=== PATIENT | male | born 1970 | race Caucasian/White ===

== ENCOUNTER 2018-06-15 15:51 | Emergency (ER) | payer MEDICARE, MEDICAID, SELFPAY ==
[2018-06-15 16:04] VITALS: BP 141/98; PULSE 110; RESP 16; TEMP 36.7; O2SAT 100
--- NOTE | 2018-06-15 16:40 | W.ED.GENAD ---
Discharge Plan Disposition Patient Disposition: HOME Discharge Details Chief Complaint: RespSymp Primary Care Provider: None,None ED Provider: Attila Jefferson Home Meds and New Rx's Prescriptions: New benzonatate 200 mg capsule 200 mg PO TID PRN (Reason: cough) Qty: 30 RF: 0 levofloxacin 750 mg tablet 750 mg PO DAILY Qty: 2 RF: 0 Continued ibuprofen 600 MG tablet 600 mg PO PRN PRNRF: 0 Discharge Data Discharge Date/Time-TO BE ENTERED AT DEPARTURE: 06/15/18 17:18 Medical Decision Making Patient presenting to the emergency department for chief complaint of puncture wound to the right foot. Patient states that he was wearing shoes when a mercedez nail punctured through his shoe puncturing his sole of the right foot. Patient also does state a worsening of an upper respiratory tract infection that he has had going for about 5days. Physical exam does show a puncture wound to the plantar aspect of the right foot with small ecchymosis otherwise no erythema. Examination of upper respiratory tract infectious symptoms shows clear lung sounds, mild tachycardia, otherwise no other focal exam findings noted. Patient states his biggest concern was not being up-to-date on tetanus and puncture wound. Patient given Tdap in emergency department and due to puncture wound through the sole of shoe was placed upon Levaquin to cover for pseudomonal potential. First dose was given in emergency department. For worsening cough patient put on Tessalon Perles otherwise I doubt pneumonia, or bacterial illness at the time and highly suspect viral etiology. Return precautions were discussed. After discussion of diagnosis and plan of care patient has no further needs, questions, or concerns and states clear understanding to return to the emergency department for any worsening symptoms. HPI General Mode of arrival: ambulatory. Date/Time Provider Initiated Documentation: 06/15/18 16:14. Limitations to Documentation: no limitations. Information obtained by: patient and RN notes reviewed. History of Present Illness 47 year old M presents to the emergency department with the chief complaint of right foot injury, cough, described as mild, with intensity rated at 2. Quality is described as aching and sharp, and is localized to the right and lower extremity. Patient started experiencing this day(s) (1) and it has been constant. Patient notes no other symptoms.. Patient did receive the following treatments prior to arrival, none Related Data Home Medications Medication Instructions Recorded Confirmed ibuprofen 600 mg PO PRN PRN 09/12/14 06/15/18 benzonatate 200 mg PO TID PRN #30 cap 06/15/18 levofloxacin 750 mg PO DAILY #2 tab 06/15/18 Previous Rx's Medication Instructions Recorded benzonatate 200 mg PO TID PRN #30 cap 06/15/18 levofloxacin 750 mg PO DAILY #2 tab 06/15/18 Allergies Allergy/AdvReac Type Severity Reaction Status Date / Time No Known Allergies Allergy Unverified 06/15/18 16:08 General Stated Complaint: RespSymp RAMIREZ: 4 Review of Systems Constitutional Denies chills, Denies fever(s), Denies headache(s) and Reports malaise Eyes Denies eye discharge ENT Reports as per HPI, Denies ear discharge, Denies otalgia, Denies headache(s), Reports nasal congestion, Reports nasal discharge, Denies neck pain, Reports sinus pain, Reports sinus pressure, Reports sore throat and Denies throat swelling Cardiovascular Denies chest pain and Denies dyspnea Respiratory Reports chest congestion (worsening), Reports cough, Denies dyspnea and Reports other Musculoskeletal Reports as per HPI, Denies myalgias, Denies joint swelling, Denies muscle cramps, Denies neck pain and Denies stiffness Integumentary/Breasts Denies rash Neurologic Denies headache(s) Allergic/Immunologic Denies throat swelling [facility] Social History Smoking/Tobacco Use Status: Current every day Drug use: Never Do you feel safe in your relationship?: Yes Exam Const General: cooperative, comfortable and no acute distress Orientation: alert and awake [facility] Head: normal to inspection, normocephalic and atraumatic Ears: hearing grossly normal bilaterally and TM's normal bilaterally General nose exam: external nose normal Face and sinus: normal facial exam Mouth: oral mucosae normal, no drooling, no muffled voice and no trismus Throat: posterior oropharynx normal, tonsils normal and uvula midline Neck Neck: normal visual inspection, full ROM, no lymphadenopathy, no meningeal signs, trachea midline and supple Resp Effort & Inspection: normal respiratory effort, able to speak in complete sentences and cough Quality of cough: dry Auscultation: clear to auscultation bilaterally Cardio Rate: tachycardic Rhythm: regular rhythm Heart Sounds: S1 normal, S2 normal, normal S1 and S2, no click, no gallops, no murmurs and no rubs Skin Trauma: puncture (To plantar aspect of right foot, no erythema) Neuro General: alert, awake, oriented x3, gait normal and moves all extremities Cognition: normal cognition Speech: speech normal Course Vital Signs Temperature 36.7 C 06/15/18 16:04 Pulse 110 H 06/15/18 16:04 Respiratory Rate 16 06/15/18 16:04 Blood Pressure 141/98 H 06/15/18 16:04 Pulse Oximetry 100 06/15/18 16:04 Temperature 36.7 C 06/15/18 16:04 Temperature Source Skin 06/15/18 16:04 Pulse 110 H 06/15/18 16:04 Respiratory Rate 16 06/15/18 16:04 Respiratory Effort 06/15/18 16:12 Respiratory Depth Normal 06/15/18 16:12 Blood Pressure 141/98 H 06/15/18 16:04 Pulse Oximetry 100 06/15/18 16:04 Oxygen Delivery Method Room Air 06/15/18 16:04 Oxygen Flow Rate 0 06/15/18 16:04 Pain Level 2 06/15/18 16:04
== END 2018-06-15 17:18 | disposition home or self-care (01) ==
PROVIDERS: Emergency Provider Nurse Practitioner Family
DX: S91.331A Puncture wound without foreign body, right foot, initial encounter (principal); W45.0XXA Nail entering through skin, initial encounter; J06.9 Acute upper respiratory infection, unspecified; F17.210 Nicotine dependence, cigarettes, uncomplicated
CPT/HCPCS: 96372; 99284; 99283

== ENCOUNTER 2018-10-16 17:46 | Inpatient (IN) | payer MEDICARE, MEDICAID, SELFPAY ==
[2018-10-16] VITALS (40 sets, daily range): BP systolic 144–199; BP diastolic 116–145; PULSE 89–142; RESP 12–30; TEMP 36.3–36.8; O2SAT 91–100
--- NOTE | 2018-10-16 18:00 | DI.CT_ITS ---
SYMPTOMS/DIAGNOSIS: MID ABDOMEN PAIN, RADIATING TO BACK CT ANGIOGRAPHY OF THE ABDOMEN AND PELVIS: CT angiography was performed with multi slice acquisition and multi planar and 3D reconstruction. Routine examination was performed. There is a 5 mm nodule in the right middle lobe. There is no evidence of a hepatic mass. The portal, superior mesenteric and splenic veins are patent. The gallbladder is negative. There is no biliary ductal dilatation. There is pancreatic atrophy but no intrapancreatic mass or fluid collection is seen. The spleen and adrenal glands are unremarkable as are the kidneys, ureters and bladder. The reproductive organs are unremarkable. The bowel shows no evidence of obstruction or inflammation. No findings to suggest an acute appendicitis are present. There is atherosclerosis of the abdominal aorta but no evidence of aneurysm or dissection. The celiac trunk, mesenteric and inferior mesenteric arteries show no significant stenosis or occlusion. The renal arteries show no significant occlusion or stenosis. There is critical stenosis of the right common iliac artery. There is critical stenosis of the right internal iliac artery. There is occlusion of the proximal left internal iliac artery with distal reconstitution. No focal fluid collection is seen. No significant abdominal or pelvic adenopathy or pneumoperitoneum is present. No acute osseous abnormality is identified. Moderate degenerative changes are seen in the spine. IMPRESSION: 1. Findings suggestive of acute pancreatitis. No focal fluid collection is seen to suggest abscess. 2. Atherosclerosis of the abdominal aorta and its runoff with critical stenosis of the right common iliac artery and occlusions of both internal iliac arteries with distal reconstitution.
[2018-10-16 18:09] LABS: Abs Immature Grans 0.03 k/cumm (0.0-0.09); Absolute Eosinophil Count 0.02 k/cumm (0.0-0.7); Absolute Monocyte Count 0.78 k/cumm (0.11-0.7); Absolute Neutrophil Count 13.44 k/cumm (1.2-6.7); Basophils % 0.3; Eosinophils % 0.1; HCT 52.3 % (40.0-50.0); Immature Grans % 0.2; Lymphocytes % 6.8; Mean Corp. HGB Concentration 36.3 g/dL (32.0-36.0); Mean Corpuscular Hemoglobin 33.3 pg (27.0-33.0); Mean Corpuscular Volume 91.8 fL (80-95); Mean Platelet Volume 9.8 fL (8.0-11.0); Monocytes % 5.1; Neutrophils % 87.5; Platelet Count 248 x1000/uL (130-400); RBC Distribution Width 13.4 % (11.8-14.1); White Blood Cell Count 15.36 k/cumm (4.4-10.8)
[2018-10-16 18:11] LABS: Lactate 2.2 mmol/L (0.6-1.4)
[2018-10-16 18:12] LABS: Absolute Basophil Count 0.05 k/cumm (0.0-0.2); Absolute Lymphocyte Count 1.04 k/cumm (1.2-3.4)
[2018-10-16] MEDS: Omnipaque 350 MG/ML 100 ML BTL IJ (18:23)
[2018-10-16] MEDS: HYDROmorphone 2 MG/ML VIAL 1 MG IVP ×2 (18:28→19:28)
--- NOTE | 2018-10-16 18:43 | NUR.NOTE ---
at bedside for bedside ultrasound eval Nursing Note:
--- NOTE | 2018-10-16 18:50 | DI.VRAD_ITS ---
Addendum created by Jessica Fairbanks MD on 10/16/2018 6:52:20 PM EDT I discussed case findings with SONNY DE LA GARZA 10/16/2018 6:51 PM EDT. Initial report created on 10/16/2018 6:50:35 PM EDT EXAM: CT Angiography Abdomen and Pelvis With Contrast EXAM DATE/TIME: 10/16/2018 6:02 PM CLINICAL HISTORY: 47 years old, male; Other: Abdominal pain, mid abd, radiating to back TECHNIQUE: Imaging protocol: Axial computed tomographic angiography images of the abdomen and pelvis with intravenous contrast material. Coronal and sagittal reformatted images were created and reviewed. 3D renderinD reconstructed images were created and reviewed. Radiation optimization: All CT scans at this facility use at least one of these dose optimization techniques: automated exposure control; mA and/or kV adjustment per patient size (includes targeted exams where dose is matched to clinical indication); or iterative reconstruction. Contrast material: OMNIPAQUE 350; Contrast volume: 100 ml; Contrast route: IV; COMPARISON: No relevant prior studies available. FINDINGS: Lungs: 5 mm soft tissue nodule right middle lobe. 4 image 4. VASCULATURE: Aorta: Moderate atherosclerotic change involves the aorta. Celiac trunk and mesenteric arteries: No occlusion or significant stenosis. Renal arteries: No occlusion or significant stenosis. Right iliac arteries: There is a critical stenosis of the right common iliac artery. There appears to be occlusion of the right internal iliac artery with distal reconstitution. Left iliac arteries: There is occlusion of the proximal left internal iliac artery with distal reconstitution. ABDOMEN: Liver: No mass. Gallbladder and bile ducts: Unremarkable. No calcified stones. No ductal dilation. Pancreas: There is moderate to severe peripancreatic soft tissue stranding particularly involving the body and tail with minimal head involvement. There is abnormal soft tissue stranding and some fluid attenuation in the left paracolic gutter. Spleen: Unremarkable. No splenomegaly. Adrenals: Unremarkable. No mass. Kidneys and ureters: Unremarkable. No solid mass. No hydronephrosis. Stomach and bowel: Unremarkable. No obstruction. No mucosal thickening. Appendix: No evidence of appendicitis. PELVIS: Bladder: Unremarkable. No mass. Reproductive: Unremarkable as visualized. ABDOMEN and PELVIS: Intraperitoneal space: See Pancreas Finding. Bones/joints: Moderate thoracolumbar spondylosis. Soft tissues: Unremarkable. Lymph nodes: Unremarkable. No enlarged lymph nodes. IMPRESSION: 1. Findings consistent with severe, acute pancreatitis. Clinical and laboratory correlation requested. 2. Critical stenosis right common iliac artery. 3. Bilateral internal iliac artery occlusions with distal reconstitution. COMMENT: Preliminary interpretation is based on receipt of 1532 image(s). A final report will be issued subsequently. Dictated and Authenticated by: Jessica Fairbanks MD. Ordering:RAFAEL Casey MD
[2018-10-16 18:51] LABS: ALT 52 U/L (12-78); AST 55 U/L (15-37); Albumin 4.3 g/dL (3.4-5.0); Alkaline Phosphatase 102 U/L (46-116); Anion Gap 12.4 mmol/L (3-11); BUN 10 mg/dL (7-18); Bilirubin, Total 1.1 mg/dL (0.2-1.0); CO2 28.6 mmol/L (21.0-32.0); Calcium 10.9 mg/dL (8.5-10.1); Chloride 92 mmol/L (98-107); Glucose 152 mg/dL (70-100); Magnesium 1.7 mg/dL (1.8-2.4); Potassium 3.6 mmol/L (3.5-5.1); Sodium 133 mmol/L (136-145); Total Protein 8.5 g/dL (6.4-8.2); Troponin I < 0.05 ng/mL (0.00-0.06)
[2018-10-16 19:01] LABS: Lipase 3732 U/L (73-393)
--- NOTE | 2018-10-16 19:01 | NUR.NOTE ---
pulses verified with doppler to ble weaker pulses palpated on r pedal compared to left Nursing Note:
--- NOTE | 2018-10-16 19:03 | ED.GENADUL_ITS ---
Discharge Plan Disposition Patient Disposition: [facility] INPATIENT Discharge Details Chief Complaint: Abd Prob Clinical Impression: Acute pancreatitis, Right iliac artery stenosis Primary Care Provider: None,None ED Provider: Jacinto Shay Home Meds and New Rx's Prescriptions: No Action ibuprofen 600 MG tablet 600 mg PO PRN PRNRF: 0 Medical Decision Making 19:05 -- 47-year-old male who consumes heavy daily amounts of alcohol, here with severe upper abdominal pain radiating to his back worsening over the past 2 days. Abdomen is tender in his epigastric and centrally with some guarding. Patient is tachycardic and hypertensive. Of note he is not had any alcohol in the past couple days. Stat CTA of the abdomen and pelvis was obtained to assess for acute surgical pathology including AAA. CT interpreted by radiology who I spoke with: Findings consistent with severe acute pancreatitis. Clinical and laboratory correlation requested. Critical stenosis right common iliac artery noted to be 99%. Bilateral internal iliac artery occlusions with distal reconstitution. Screening ECG was reviewed and interpreted by me: Sinus tachycardia 114 bpm, normal axis, nonspecific ST depression, nondiagnostic. Labs reviewed and significant leukocytosis noted. Lactate of 2.2. Lipase of 3732. Patient was given 1L IV fluid bolus x2. Dilaudid 1 mg IV for pain. Patient reassessed and noted to have palpable dorsalis pedis left greater than right. Patient has no numbness or tingling. [place] [facility] [place] to request vascular consult. CT sent for review. Patient reassessed and having recurrent pain. I will give another dose of Dilaudid 1 mg IV. 19:15 -- I spoke with Dr. Perdue, we discussed ED presentation and course including all diagnostic treatment results, he will admit the patient. 19:40 --Dr. Perdue here to evaluate and admit patient. Care transition to Dr. Perdue. 20:00 -- no return call from [facility] vascular surgery. I alerted Dr. Perdue to this and he will follow-up. HPI General Mode of arrival: ambulatory . Date/Time Provider Initiated Documentation: 10/16/18 18:00 . Limitations to Documentation: no limitations . Information obtained by: patient . HPI Narrative: 47-year-old male presents with chief combine of abdominal pain. Pain started 2 to 3 days ago and has persisted. Pain is severe. Constant. Pain localized to his epigastric and mid abdomen and radiating to his back. Pain is worse with certain positions. Patient notes he has had recent flulike illness with nausea, vomiting and diarrhea that started about 4 days ago. Patient notes that he consumes about a pint of hard liquor daily. He has not had a drink in the past couple days because of his symptoms. Related Data Home Medications Medication Instructions Recorded Confirmed ibuprofen 600 mg PO PRN PRN 09/12/14 10/16/18 Allergies Allergy/AdvReac Type Severity Reaction Status Date / Time No Known Allergies Allergy Unverified 10/16/18 17:53 General Stated Complaint: Abd Prob RAMIREZ: 3 Review of Systems Review of Systems All systems reviewed & are unremarkable except as noted in HPI and below Constitutional Denies fever(s) Cardiovascular Denies chest pain Gastrointestinal Reports as per HPI [facility] Social History Smoking/Tobacco Use Status: Current every day Alcohol Intake: current Alcohol Intake frequency: 3 or more drinks per day Alcohol type: beer and hard liquor Drug use: Never Do you feel safe in your relationship?: Yes Exam Const General: cooperative and no acute distress HENMT Head: normocephalic and atraumatic Mouth: mucous membranes dry Eyes Conjunctivae: normal conjunctivae Sclera: normal sclerae Neck Neck: trachea midline and supple Resp Auscultation: clear to auscultation bilaterally, no rales, no rhonchi and no wheezes Cardio Jugular venous pressure: no JVD Rate: tachycardic Rhythm: regular rhythm GI Palpation: guarding (upper abd) and tender in the epigastrum Auscultation: hypoactive bowel sounds Skin General skin exam: no rashes or lesions noted Neuro General: alert, awake, oriented x3 and tone normal Extrem General: no edema Psych Appearance: grossly normal Mental Status: mental status grossly normal Speech and Movement: speech and movement normal Course Vital Signs Temperature 36.3 C L 10/16/18 17:47 Pulse 120 H 10/16/18 17:47 Respiratory Rate 24 10/16/18 17:47 Blood Pressure 185/136 H 10/16/18 17:47 Pulse Oximetry 99 10/16/18 17:47 Temperature 36.3 C L 10/16/18 17:47 Temperature Source Skin 10/16/18 17:47 Pulse 120 H 10/16/18 17:47 Respiratory Rate 24 10/16/18 17:47 Respiratory Effort Non-Labored 10/16/18 18:34 Blood Pressure 185/136 H 10/16/18 17:47 Blood Pressure Position Supine 10/16/18 17:47 Pulse Oximetry 99 10/16/18 17:47 Oxygen Delivery Method Room Air 10/16/18 17:47 Oxygen Flow Rate 0 10/16/18 17:47 Lab/Test Results Lab/Test Results: Laboratory Tests Range/Units 10/16/18 10/16/18 10/16/18 18:00 18:00 18:00 WBC (4.4-10.8) k/cumm 15.36 H RBC (4.50-6.00) m/cumm 5.70 Hgb (13.5-17.5) g/dL 19.0 H Hct (40.0-50.0) % 52.3 H MCV (80-95) fL 91.8 MCH (27.0-33.0) pg 33.3 H MCHC (32.0-36.0) g/dL 36.3 H RDW (11.8-14.1) % 13.4 Plt Count (130-400) x1000/uL 248 MPV (8.0-11.0) fL 9.8 Immature Gran % 0.2 Neutrophils % 87.5 Lymphocytes % 6.8 Monocytes % 5.1 Eosinophils % 0.1 Basophils % 0.3 Absolute Neutrophils (1.2-6.7) k/cumm 13.44 H Absolute Lymphocytes (1.2-3.4) k/cumm 1.04 L Absolute Monocytes (0.11-0.7) k/cumm 0.78 H Absolute Eosinophils (0.0-0.7) k/cumm 0.02 Absolute Basophils (0.0-0.2) k/cumm 0.05 Sodium (136-145) mmol/L 133 L Potassium (3.5-5.1) mmol/L 3.6 Chloride (98-107) mmol/L 92 L Carbon Dioxide (21.0-32.0) mmol/L 28.6 Anion Gap (3-11) mmol/L 12.4 H BUN (7-18) mg/dL 10 Creatinine (0.70-1.30) mg/dL 1.10 Estimated GFR/1.73 m2 (mL/min/1.73m2) >= 60.00 Glucose (70-100) mg/dL 152 H Lactate (0.6-1.4) mmol/L 2.2 H* Calcium (8.5-10.1) mg/dL 10.9 H Magnesium (1.8-2.4) mg/dL 1.7 L Total Bilirubin (0.2-1.0) mg/dL 1.1 H AST (15-37) U/L 55 H ALT (12-78) U/L 52 Alkaline Phosphatase (46-116) U/L 102 Troponin I (0.00-0.06) ng/mL < 0.05 Total Protein (6.4-8.2) g/dL 8.5 H Albumin (3.4-5.0) g/dL 4.3 Lipase (73-393) U/L 3732 H Patient ABO/Rh Range/Units 10/16/18 18:05 WBC (4.4-10.8) k/cumm RBC (4.50-6.00) m/cumm Hgb (13.5-17.5) g/dL Hct (40.0-50.0) % MCV (80-95) fL MCH (27.0-33.0) pg MCHC (32.0-36.0) g/dL RDW (11.8-14.1) % Plt Count (130-400) x1000/uL MPV (8.0-11.0) fL Immature Gran % Neutrophils % Lymphocytes % Monocytes % Eosinophils % Basophils % Absolute Neutrophils (1.2-6.7) k/cumm Absolute Lymphocytes (1.2-3.4) k/cumm Absolute Monocytes (0.11-0.7) k/cumm Absolute Eosinophils (0.0-0.7) k/cumm Absolute Basophils (0.0-0.2) k/cumm Sodium (136-145) mmol/L Potassium (3.5-5.1) mmol/L Chloride (98-107) mmol/L Carbon Dioxide (21.0-32.0) mmol/L Anion Gap (3-11) mmol/L BUN (7-18) mg/dL Creatinine (0.70-1.30) mg/dL Estimated GFR/1.73 m2 (mL/min/1.73m2) Glucose (70-100) mg/dL Lactate (0.6-1.4) mmol/L Calcium (8.5-10.1) mg/dL Magnesium (1.8-2.4) mg/dL Total Bilirubin (0.2-1.0) mg/dL AST (15-37) U/L ALT (12-78) U/L Alkaline Phosphatase (46-116) U/L Troponin I (0.00-0.06) ng/mL Total Protein (6.4-8.2) g/dL Albumin (3.4-5.0) g/dL Lipase (73-393) U/L Patient ABO/Rh A Positive
[2018-10-16] MEDS: Normal Saline 1,000 ML 1000 ML IV (19:26)
--- NOTE | 2018-10-16 19:28 | W.PM.HP.N ---
Date of service: 10/16/18 Time of Service: 19:28 Assessment and Plan (1) Pancreatitis: Current visit: Yes Status: Chronic Alcoholic pancreatitis. Will have NPO, IVF and analgesics. Unclear if hypertension and tachycardia secondary to pain, alcohol w/d or both; if persists once pain under control will add beta ritchie, and in any case will have on CIWA protocol. History of Present Illness Chief Complaint: abdominal paiin Narrative: 47 male with h/o alcohol abuse, says he drinks a pint of spirits daily, last niharika few days ago. here with 2 days or worsening epigastric pain, radiating to back. In ER lipase [address] findings of pancreatitis (no gall stones)_. Patient admitted for further management. States he has never had withdrawal symptoms from alcohol. Incidental finding on CT of right iliac stenosis, in setting of palpable pedal pulses Review of Systems Review of Systems All systems reviewed & are unremarkable except as noted in HPI and below PFSH Social History Smoking/Tobacco Use Status: Current every day Alcohol Intake: current Alcohol Intake frequency: 3 or more drinks per day Alcohol type: beer and hard liquor Drug use: Never Do you feel safe in your relationship?: Yes Meds Home Medications Medication Instructions Recorded Confirmed Type ibuprofen 600 mg PO PRN PRN 09/12/14 10/16/18 History Allergies Allergy/AdvReac Type Severity Reaction Status Date / Time No Known Allergies Allergy Unverified 10/16/18 17:53 Exam Narrative Exam Narrative: 185/136, 120, 24, 36.3; HEENT no icterus; neck supple; lungs clear; heart tachy/regular; abdomen somewhat distended, hypoactive BS, moderate epigastric tenderness; /rectal deferred'; extr no edema pedal pulses full Results Labs : 10/16/18 18:00 10/16/18 18:00 Laboratory Results - last 24 hr 10/16/18 10/16/18 10/16/18 18:00 18:00 18:00 WBC 15.36 H RBC 5.70 Hgb 19.0 H Hct 52.3 H MCV 91.8 MCH 33.3 H MCHC 36.3 H RDW 13.4 Plt Count 248 MPV 9.8 Immature Gran % 0.2 Neutrophils % 87.5 Band Neutrophils % Lymphocytes % 6.8 Atypical Lymphs % Monocytes % 5.1 Eosinophils % 0.1 Basophils % 0.3 Metamyelocytes % Myelocytes % Promyelocytes % Absolute Neutrophils 13.44 H Absolute Lymphocytes 1.04 L Absolute Monocytes 0.78 H Absolute Eosinophils 0.02 Absolute Basophils 0.05 Nucleated RBCs Differential Comment Other Cell Type RBC Morphology Polychromasia Hypochromasia Poikilocytosis Basophilic Stippling Anisocytosis Microcytosis Macrocytosis Spherocytes Target Cells Tear Drop Cells Ovalocytes Stomatocytes [place] Bodies Ariana Cells Acanthocytes (Spur) Schistocytes Sodium 133 L Potassium 3.6 Chloride 92 L Carbon Dioxide 28.6 Anion Gap 12.4 H BUN 10 Creatinine 1.10 Estimated GFR/1.73 m2 >= 60.00 Glucose 152 H Lactate 2.2 H* Calcium 10.9 H Magnesium 1.7 L Total Bilirubin 1.1 H AST 55 H ALT 52 Alkaline Phosphatase 102 Troponin I < 0.05 Total Protein 8.5 H Albumin 4.3 Lipase 3732 H Patient ABO/Rh Antibody Screen 10/16/18 10/16/18 10/16/18 18:05 19:01 19:01 WBC Cancelled RBC Cancelled Hgb Cancelled Hct Cancelled MCV Cancelled MCH Cancelled MCHC Cancelled RDW Cancelled Plt Count Cancelled MPV Cancelled Immature Gran % Cancelled Neutrophils % Cancelled Band Neutrophils % Cancelled Lymphocytes % Cancelled Atypical Lymphs % Cancelled Monocytes % Cancelled Eosinophils % Cancelled Basophils % Cancelled Metamyelocytes % Cancelled Myelocytes % Cancelled Promyelocytes % Cancelled Absolute Neutrophils Cancelled Absolute Lymphocytes Cancelled Absolute Monocytes Cancelled Absolute Eosinophils Cancelled Absolute Basophils Cancelled Nucleated RBCs Cancelled Differential Comment Cancelled Other Cell Type Cancelled RBC Morphology Cancelled Polychromasia Cancelled Hypochromasia Cancelled Poikilocytosis Cancelled Basophilic Stippling Cancelled Anisocytosis Cancelled Microcytosis Cancelled Macrocytosis Cancelled Spherocytes Cancelled Target Cells Cancelled Tear Drop Cells Cancelled Ovalocytes Cancelled Stomatocytes Cancelled [place] Bodies Cancelled Ariana Cells Cancelled Acanthocytes (Spur) Cancelled Schistocytes Cancelled Sodium Cancelled Potassium Cancelled Chloride Cancelled Carbon Dioxide Cancelled Anion Gap Cancelled BUN Cancelled Creatinine Cancelled Estimated GFR/1.73 m2 Cancelled Glucose Cancelled Lactate Calcium Cancelled Magnesium Cancelled Total Bilirubin Cancelled AST Cancelled ALT Cancelled Alkaline Phosphatase Cancelled Troponin I Cancelled Total Protein Cancelled Albumin Cancelled Lipase Patient ABO/Rh A Positive Antibody Screen Negative Last Vital Signs Temp 36.3 C L 10/16/18 17:47 Pulse 120 H 10/16/18 17:47 Resp 24 10/16/18 17:47 BP 185/136 H 10/16/18 17:47 Pulse Ox 99 10/16/18 17:47
[2018-10-16] MEDS: Metoprolol CR 25 MG TABCR PO (20:06)
[2018-10-16] MEDS: MULTIVITAMIN 10 ML, THIAMINE 100 MG, FOLIC ACID 1 MG in DEXTROSE 5%-0.45% SALINE 1,000 ML 42 ML IV (21:01)
[2018-10-16] MEDS: HYDROmorphone 2 MG/ML VIAL IVP (22:16)
[2018-10-16] MEDS: Nicotine 21 MG/24 HR PATCH TD (22:16)
[2018-10-16] MEDS: LORazepam 1 MG TAB PO/SL (22:17)
[2018-10-16] MEDS: Enalapril 5 MG TAB 2.5 MG PO (23:06)
[2018-10-16] MEDS: Metoprolol 12.5 MG TAB PO (23:06)
[2018-10-17] VITALS (10 sets, daily range): BP systolic 113–160; BP diastolic 80–119; PULSE 89–109; RESP 17–20; TEMP 36–37.1; O2SAT 93–98
[2018-10-17] MEDS: HYDROmorphone 2 MG/ML VIAL IVP ×4 (02:16→18:41)
[2018-10-17] MEDS: LORazepam 1 MG TAB PO/SL (02:16)
[2018-10-17 07:29] LABS: HCT 51.1 % (40.0-50.0); HGB 17.8 g/dL (13.5-17.5); Mean Corp. HGB Concentration 34.8 g/dL (32.0-36.0); Mean Corpuscular Hemoglobin 32.8 pg (27.0-33.0); Mean Corpuscular Volume 94.3 fL (80-95); Mean Platelet Volume 10.3 fL (8.0-11.0); Platelet Count 209 x1000/uL (130-400); RBC 5.42 m/cumm (4.50-6.00); RBC Distribution Width 13.7 % (11.8-14.1)
[2018-10-17 07:41] LABS: Anion Gap 11.6 mmol/L (3-11); BUN 10 mg/dL (7-18); CO2 25.4 mmol/L (21.0-32.0); CREATININE 0.74 mg/dL (0.70-1.30); Calcium 9.7 mg/dL (8.5-10.1); Chloride 98 mmol/L (98-107); Glucose 111 mg/dL (70-100); Potassium 3.7 mmol/L (3.5-5.1); Sodium 135 mmol/L (136-145)
[2018-10-17] MEDS: Nicotine 21 MG/24 HR PATCH TD (08:01)
[2018-10-17] MEDS: Normal Saline Flush 10 ML SYR IVP ×3 (08:03→18:42)
[2018-10-17 08:07] LABS: Lipase 4443 U/L (73-393)
--- NOTE | 2018-10-17 08:39 | PDOC.CMIN ---
- If Service Date Differs Date of service: 10/17/18 Time of Service: 08:40 Care Management Initial Assess REASON FOR HOSPITALIZATION:: Pancreatitis PAST MEDICAL HISTORY/PAST SURGICAL HISTORY:: ETOH abuse. Bipolar per patient report PREVIOUS FUNCTIONAL STATUS/SOCIAL/FAMILY SUPPORTS:: Rio lives in a house in [facility] with his girlfriend and his 8 year old daughter. He is independent with all ADLs and continues to drive. 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 CURRENT FUNCTIONAL STATUS:: Rio was lying in bed when CM came to visit. He was a little drowsy but made an effort to stay awake to talk to CM. He stated he is having abdominal and back pain and requested medication for this from nursing. Rio states he has both a physical disability (back) and a mental one. He describes himself as schizophrenic, the manic depressive type. In the past he has been under treatment for this but stopped taking his medication and seeing his psychiatrist about 3 years ago. His mental health care was in [place] and the distance became too much. Through the course of conversation he stated that he would like to go back on medication for his psychiatric issues because it is better for me and for my family. ADVANCE DIRECTIVES:: None curently but may be interested. provided [facility] AD packet. Has patient been provided with information about the portal?: No Did the patient sign up for the portal?: No CODE STATUS:: Full Code INSURANCE COVERAGE / FINANCIAL ISSUES:: Medicare. Medicaid CURRENT HOME/COMMUNITY SERVICES/EQUIPMENT:: none PRIMARY CARE PHYSICIAN:: None POTENTIAL DISCHARGE NEEDS:: Follow up with mental health and establishing a relationship with a new PCP PATIENT/FAMILY EDUCATION NEEDS:: Discharge plan, limitations, follow up plan, Ask Me Three. ANTICIPATED BARRIERS TO DISCHARGE:: none identified TRANSPORTATION:: via private vehicle with girlfriend when ready PLAN:: Rio is receiving pain medication and is NPO to treat his pancreatitis. He is also on a CIWA protocol. He remains acute level of care. Rio will likely be discharged home when ready, possibly with new services. CM will continue to support Rio and his family and his discharge planning needs.
[2018-10-17 10:37] LABS: Lactate-non-spesis 0.8 mmol/l (0.6-1.4)
[2018-10-17 10:40] LABS: Magnesium 1.8 mg/dL (1.8-2.4)
[2018-10-17 10:49] LABS: Abs Immature Grans 0.03 k/cumm (0.0-0.09); Absolute Basophil Count 0.02 k/cumm (0.0-0.2); Absolute Eosinophil Count 0.04 k/cumm (0.0-0.7); Absolute Lymphocyte Count 0.78 k/cumm (1.2-3.4); Absolute Monocyte Count 1.06 k/cumm (0.11-0.7); Absolute Neutrophil Count 12.33 k/cumm (1.2-6.7); Basophils % 0.1; Eosinophils % 0.3; Immature Grans % 0.2; Lymphocytes % 5.5; Monocytes % 7.4; Neutrophils % 86.5
[2018-10-17] MEDS: Normal Saline 1,000 ML 200 ML IV ×2 (11:13→15:50)
[2018-10-17] MEDS: Docusate Sodium 100 MG CAP PO (11:14)
[2018-10-17] MEDS: Magnesium Chloride 64 MG TABCR PO ×2 (11:14→20:09)
--- NOTE | 2018-10-17 12:15 | W.PM.PROGNOT ---
Date of Service Date of service: 10/17/18 Time of Service: 12:15 Assessment and Plan (1) Pancreatitis: Start date: 10/17/18 Start time: 12:26 Current visit: Yes Status: Chronic Alcoholic pancreatitis. Drinks about 1 pint of liquor a day last drink was Friday. Continues to have pain, no nausea or vomiting. Abdomen is distended and firm. Continue NPO status for now, IVF at 200 ml/hr with Intermittent banana bags. (2) Alcohol abuse: Start date: 10/17/18 Start time: 12:27 Current visit: Yes Status: Chronic See above. On CIWA. Consider withdrawal in a patient that drinks about 1 pint liquor a day, has not had a drink since Friday, with an elevated heart rate and elevated bp. CIWA overnight was 6, oxazepam started for withdrawal and ativan PRN. If bp continues to stay elevated consider BB. (3) Tobacco abuse: Start date: 10/17/18 Start time: 12:30 Current visit: Yes Status: Acute Smoking cessation offered, nicotine replacement patch ordered. Continue to speak about cessation. (4) Constipation: Start date: 10/17/18 Start time: 12:31 Current visit: Yes Status: Acute Unable to have a BM in 5 days. Bowel regimen started. Continue to monitor. (5) Hypomagnesemia: Start date: 10/17/18 Start time: 12:31 Current visit: Yes Status: Acute Mag 1.7 repleted with slo-mag and monitor daily. (6) Pulmonary nodule: Start date: 10/17/18 Start time: 12:33 Current visit: Yes Status: Acute CT scan 10/16 revealing 5 mm soft tissue nodule in right middle lobe. Does not to be of concern at this time. Will need follow up as an outpatient for further testing and diagnosis. (7) DVT prophylaxis: Start date: 10/17/18 Start time: 12:32 Current visit: Yes Status: Acute 44 y.o male that is ambulatory around room with chronic alcoholism, chemical prophylaxis not indicated. Subjective Patient reports: no new complaints Interval history since last seen: Continues to have pain, abdomen firm, bloated with hypoactive bs, keep NPO at this time. No nausea or vomiting. Unable to have a BM, bowel regimen started. HR is slightly tachycardic with an elevated blood pressure. Last drink 3 days ago, could be withdrawal, scored 6 overnight with CIWA. Oxazepam ordered for withdrawal with ativan prn and trend vitals. If bp continues to be elevated outside withdrawal setting consider BB. CT obtained revealed a 5 mm nodule. Patient should have this worked up as an outpatient. Denies chest pain, shortness of breath, swelling. Exam Narrative Exam Narrative: Const: Pleasant male sitting up in chair, looks disheveled and in pain Neck: no lyphedema, normal appearance Chest: Normal appearance. Resp: breaths even unlabored, speaks complete sentences and LSC to all bases. Cardio:RRR, S1, S2, no murmur appreciated. GI: abdomen hypoactive BS in all quads. Obtunded belly, firm, distended. Pain to palpation in RLQ and mid epigastric. Skin: intact no open areas, wounds, rashes. Neuro: Intact, AAOx 3 Extremities: no clubbing, cyanosis, swelling. Objective Objective Clinical Data: Abnormal lab results 10/16/18 10/16/18 10/16/18 Range/Units 18:00 18:00 18:00 WBC 15.36 H (4.4-10.8) k/cumm Hgb 19.0 H (13.5-17.5) g/dL Hct 52.3 H (40.0-50.0) % MCH 33.3 H (27.0-33.0) pg MCHC 36.3 H (32.0-36.0) g/dL Absolute Neutrophils 13.44 H (1.2-6.7) k/cumm Absolute Lymphocytes 1.04 L (1.2-3.4) k/cumm Absolute Monocytes 0.78 H (0.11-0.7) k/cumm Sodium 133 L (136-145) mmol/L Chloride 92 L (98-107) mmol/L Anion Gap 12.4 H (3-11) mmol/L Glucose 152 H (70-100) mg/dL Lactate 2.2 H* (0.6-1.4) mmol/L Calcium 10.9 H (8.5-10.1) mg/dL Magnesium 1.7 L (1.8-2.4) mg/dL Total Bilirubin 1.1 H (0.2-1.0) mg/dL AST 55 H (15-37) U/L Total Protein 8.5 H (6.4-8.2) g/dL Lipase 3732 H (73-393) U/L 10/17/18 10/17/18 Range/Units 06:30 06:30 WBC 14.20 H (4.4-10.8) k/cumm Hgb 17.8 H (13.5-17.5) g/dL Hct 51.1 H (40.0-50.0) % MCH (27.0-33.0) pg MCHC (32.0-36.0) g/dL Absolute Neutrophils 12.33 H (1.2-6.7) k/cumm Absolute Lymphocytes 0.78 L (1.2-3.4) k/cumm Absolute Monocytes 1.06 H (0.11-0.7) k/cumm Sodium 135 L (136-145) mmol/L Chloride (98-107) mmol/L Anion Gap 11.6 H (3-11) mmol/L Glucose 111 H (70-100) mg/dL Lactate (0.6-1.4) mmol/L Calcium (8.5-10.1) mg/dL Magnesium (1.8-2.4) mg/dL Total Bilirubin (0.2-1.0) mg/dL AST (15-37) U/L Total Protein (6.4-8.2) g/dL Lipase 4443 H (73-393) U/L Vital Signs Temperature 36.6 C 10/17/18 11:25 Temperature Source Tympanic 10/17/18 11:25 Pulse 109 H 10/17/18 11:25 Pulse Rhythm Regular 10/17/18 08:12 Pulse 98 H 10/16/18 21:01 Respiratory Rate 17 10/17/18 11:25 Respiratory Effort Non-Labored 10/17/18 08:12 Respiratory Depth Normal 10/17/18 08:12 Respiratory Pattern Normal 10/17/18 08:12 Blood Pressure 121/89 10/17/18 11:25 Blood Pressure Mean 134 10/16/18 21:01 Blood Pressure Position Supine 10/16/18 17:47 Pulse Oximetry 97 10/17/18 11:25 Oxygen Delivery Method Room Air 10/17/18 11:25 Oxygen Flow Rate 0 10/17/18 11:25 Pain Level 7 10/17/18 08:02 Intake & Output 10/16/18 10/17/18 10/17/18 23:59 11:59 23:59 Intake Total 1000 / 1000 874.3 / 874.3 Balance 1000 / 1000 874.3 / 874.3 Weight 77.111 kg Intake: IV 1000 / 1000 874.3 / 874.3 Laboratory Results WBC 14.20 k/cumm (4.4-10.8) H 10/17/18 06:30 RBC 5.42 m/cumm (4.50-6.00) 10/17/18 06:30 Hgb 17.8 g/dL (13.5-17.5) H 10/17/18 06:30 Hct 51.1 % (40.0-50.0) H 10/17/18 06:30 MCV 94.3 fL (80-95) 10/17/18 06:30 MCH 32.8 pg (27.0-33.0) 10/17/18 06:30 MCHC 34.8 g/dL (32.0-36.0) 10/17/18 06:30 RDW 13.7 % (11.8-14.1) 10/17/18 06:30 Plt Count 209 x1000/uL (130-400) 10/17/18 06:30 MPV 10.3 fL (8.0-11.0) 10/17/18 06:30 Immature Gran % 0.2 10/17/18 06:30 86.5 10/17/18 06:30 Cancelled 10/16/18 19:01 5.5 10/17/18 06:30 Atypical Lymphs % Cancelled 10/16/18 19:01 7.4 10/17/18 06:30 0.3 10/17/18 06:30 0.1 10/17/18 06:30 Cancelled 10/16/18 19:01 Cancelled 10/16/18 19:01 Cancelled 10/16/18 19:01 Absolute Neutrophils 12.33 k/cumm (1.2-6.7) H 10/17/18 06:30 Absolute Lymphocytes 0.78 k/cumm (1.2-3.4) L 10/17/18 06:30 Absolute Monocytes 1.06 k/cumm (0.11-0.7) H 10/17/18 06:30 Absolute Eosinophils 0.04 k/cumm (0.0-0.7) 10/17/18 06:30 Absolute Basophils 0.02 k/cumm (0.0-0.2) 10/17/18 06:30 Nucleated RBCs Cancelled 10/16/18 19:01 Cancelled 10/16/18 19:01 Cancelled 10/16/18 19:01 RBC Morphology Cancelled 10/16/18 19:01 Cancelled 10/16/18 19:01 Cancelled 10/16/18 19:01 Cancelled 10/16/18 19:01 Cancelled 10/16/18 19:01 Cancelled 10/16/18 19:01 Cancelled 10/16/18 19:01 Cancelled 10/16/18 19:01 Cancelled 10/16/18 19:01 Cancelled 10/16/18 19:01 Cancelled 10/16/18 19:01 Cancelled 10/16/18 19:01 Cancelled 10/16/18 19:01 Cancelled 10/16/18 19:01 Cancelled 10/16/18 19:01 Acanthocytes (Spur) Cancelled 10/16/18 19:01 Cancelled 10/16/18 19:01 Sodium 135 mmol/L (136-145) L 10/17/18 06:30 Potassium 3.7 mmol/L (3.5-5.1) 10/17/18 06:30 Chloride 98 mmol/L (98-107) 10/17/18 06:30 Carbon Dioxide 25.4 mmol/L (21.0-32.0) 10/17/18 06:30 11.6 mmol/L (3-11) H 10/17/18 06:30 BUN 10 mg/dL (7-18) 10/17/18 06:30 0.74 mg/dL (0.70-1.30) 10/17/18 06:30 >= 60.00 (mL/min/1.73m2) 10/17/18 06:30 Glucose 111 mg/dL (70-100) H 10/17/18 06:30 0.8 mmol/l (0.6-1.4) 10/17/18 10:30 Calcium 9.7 mg/dL (8.5-10.1) 10/17/18 06:30 Magnesium 1.8 mg/dL (1.8-2.4) 10/17/18 06:30 Cancelled 10/16/18 19:01 AST Cancelled 10/16/18 19:01 ALT Cancelled 10/16/18 19:01 Cancelled 10/16/18 19:01 Cancelled 10/16/18 19:01 Cancelled 10/16/18 19:01 Cancelled 10/16/18 19:01 4443 U/L (73-393) H 10/17/18 06:30 Patient ABO/Rh A Positive 10/16/18 18:05 Antibody Screen Negative 10/16/18 18:05
[2018-10-17] MEDS: Polyethylene Glycol 3350 17 GM PACKET PO ×2 (13:33→20:10)
[2018-10-18] VITALS (10 sets, daily range): BP systolic 122–155; BP diastolic 86–98; PULSE 95–110; RESP 18–19; TEMP 36.7–37.6; O2SAT 92–96
[2018-10-18] MEDS: HYDROmorphone 2 MG/ML VIAL IVP ×3 (00:22→11:04)
[2018-10-18] MEDS: Normal Saline 1,000 ML 200 ML IV ×5 (01:20→21:03)
[2018-10-18] MEDS: Normal Saline Flush 10 ML SYR IVP ×4 (07:49→15:26)
[2018-10-18 08:02] LABS: Abs Immature Grans 0.02 k/cumm (0.0-0.09); Absolute Basophil Count 0.02 k/cumm (0.0-0.2); Absolute Eosinophil Count 0.12 k/cumm (0.0-0.7); Absolute Monocyte Count 1.11 k/cumm (0.11-0.7); Basophils % 0.2; HCT 43.1 % (40.0-50.0); HGB 14.8 g/dL (13.5-17.5); Immature Grans % 0.2; Lymphocytes % 7.9; Mean Corp. HGB Concentration 34.3 g/dL (32.0-36.0); Mean Corpuscular Hemoglobin 33.1 pg (27.0-33.0); Mean Corpuscular Volume 96.4 fL (80-95); Mean Platelet Volume 10.5 fL (8.0-11.0); Neutrophils % 81.7; Platelet Count 135 x1000/uL (130-400); RBC 4.47 m/cumm (4.50-6.00); RBC Distribution Width 13.5 % (11.8-14.1); White Blood Cell Count 12.33 k/cumm (4.4-10.8)
[2018-10-18 08:10] LABS: Absolute Lymphocyte Count 0.97 k/cumm (1.2-3.4); Absolute Neutrophil Count 10.07 k/cumm (1.2-6.7)
[2018-10-18 08:15] LABS: ALT 26 U/L (12-78); AST 28 U/L (15-37); Albumin 2.7 g/dL (3.4-5.0); Alkaline Phosphatase 89 U/L (46-116); Anion Gap 8.2 mmol/L (3-11); BUN 9 mg/dL (7-18); Bilirubin, Total 0.9 mg/dL (0.2-1.0); CO2 26.8 mmol/L (21.0-32.0); CREATININE 0.73 mg/dL (0.70-1.30); Calcium 8.2 mg/dL (8.5-10.1); Chloride 98 mmol/L (98-107); Glucose 89 mg/dL (70-100); Magnesium 1.5 mg/dL (1.8-2.4); Potassium 3.5 mmol/L (3.5-5.1); Sodium 133 mmol/L (136-145); Total Protein 5.9 g/dL (6.4-8.2)
[2018-10-18] MEDS: Polyethylene Glycol 3350 17 GM PACKET PO ×2 (08:15→19:46)
[2018-10-18] MEDS: Docusate Sodium 100 MG CAP PO (08:15)
[2018-10-18] MEDS: Magnesium Chloride 64 MG TABCR PO ×3 (08:15→19:46)
[2018-10-18] MEDS: Nicotine 21 MG/24 HR PATCH TD (08:16)
[2018-10-18] MEDS: Potassium Chloride 20 MEQ TABCR 40 MEQ PO (10:44)
[2018-10-18] MEDS: Cetirizine 10 MG TAB PO (10:44)
[2018-10-18] MEDS: MAGNESIUM SULFATE 4 GM/100 ML BAG IVPB (10:49)
[2018-10-18] MEDS: Acetaminophen 500 MG TAB 1000 MG PO ×2 (11:05→18:24)
--- NOTE | 2018-10-18 11:17 | PGE_ITS ---
Date of Service Date of service: 10/18/18 Time of Service: 11:17 Assessment and Plan (1) Pancreatitis: Start date: 10/18/18 Start time: 11:22 Current visit: Yes Status: Chronic Alcoholic pancreatitis. Tolerating clears without nausea or vomiting or increased pain. Pain is the same, though patient has not had a BM in 6 days. Some of this pain could be a result of constipation. CT did not reveal an ileus or obstruction, and abdomen is softer today with normal bowel sounds, which is improvement from yesterday. Glycerin suppository ordered if unable to have BM from suppository SSE ordered. If patient is feeling better after BM consider changing diet to soft. IVF continue at this time. Banana bag discountinue placed on multivitamin, thiamine and folate po. Continue to monitor. (2) Alcohol abuse: Start date: 10/18/18 Start time: 11:25 Current visit: Yes Status: Chronic See above. No sx of withdrawal at this time per patient last drink was FridayOctober 13. (3) Tobacco abuse: Start date: 10/18/18 Start time: 11:26 Current visit: Yes Status: Acute Smoking cessation offered, nicotine replacement patch ordered. Continue to speak about cessation. (4) Constipation: Start date: 10/18/18 Start time: 11:26 Current visit: Yes Status: Acute See above (5) Hypomagnesemia: Start date: 10/18/18 Start time: 11:27 Current visit: Yes Status: Acute Mag 1.5 today repleted with 4 grams and slo mag. (6) Pulmonary nodule: Start date: 10/18/18 Start time: 11:28 Current visit: Yes Status: Acute CT scan 10/16 revealing 5 mm soft tissue nodule in right middle lobe. Does not to be of concern at this time. Will need follow up as an outpatient for fu rther testing and diagnosis and follow up with a Emergency Medicine Medical Director is recommended. (7) DVT prophylaxis: Start date: 10/18/18 Start time: 11:29 Current visit: Yes Status: Acute 44 y.o male that is ambulatory around room with chronic alcoholism, chemical prophylaxis not indicated. Subjective Patient reports: still having pain Interval history since last seen: Still complaining of pain. Has not had a BM in 6 days. Placed on BM regimen, add glycerin suppository and SSE if suppository not successful after couple hours. Tolerating clears no nausea or vomiting.Abdomen is softer today and bowel sounds are more audible. I am not going to increase diet at this time however, due to pain. If he has a BM this afternoon and pain is better, as I suspect some of his pain is from lack of BM than consider increasing diet to soft for dinner or in the morning. No signs of alcohol withdrawal at this time. He denies CP, SOB, n/v/d. Exam Narrative Exam Narrative: Const: Pleasant male lying in bed. Neck: no lyphedema, normal appearance Chest: Normal appearance. Resp: breaths even unlabored, speaks complete sentences and LSC to all bases. Cardio:RRR, S1, S2, no murmur appreciated. GI: abdomen BS normoactive in all quads. Belly softer today but, distended. Pain to palpation in mid epigastric. Skin: intact no open areas, wounds, rashes. Neuro: Intact, AAOx 3 Extremities: no clubbing, cyanosis, swelling. Objective Objective Clinical Data: Abnormal lab results 10/18/18 10/18/18 Range/Units 06:50 06:50 WBC 12.33 H (4.4-10.8) k/cumm RBC 4.47 L (4.50-6.00) m/cumm MCV 96.4 H (80-95) fL MCH 33.1 H (27.0-33.0) pg Absolute Neutrophils 10.07 H (1.2-6.7) k/cumm Absolute Lymphocytes 0.97 L (1.2-3.4) k/cumm Absolute Monocytes 1.11 H (0.11-0.7) k/cumm Sodium 133 L (136-145) mmol/L Calcium 8.2 L (8.5-10.1) mg/dL Magnesium 1.5 L (1.8-2.4) mg/dL Total Protein 5.9 L (6.4-8.2) g/dL Albumin 2.7 L (3.4-5.0) g/dL Vital Signs Temperature 37.6 C H 10/18/18 07:18 Temperature Source Tympanic 10/18/18 07:18 Pulse 107 H 10/18/18 07:18 Pulse Rhythm Regular 10/18/18 08:30 Pulse 98 H 10/16/18 21:01 Respiratory Rate 18 10/18/18 07:18 Respiratory Effort Non-Labored 10/18/18 08:30 Respiratory Depth Shallow 10/18/18 08:30 Respiratory Pattern Normal 10/18/18 08:30 Blood Pressure 155/98 H 10/18/18 07:18 Blood Pressure Mean 134 10/16/18 21:01 Blood Pressure Position Supine 10/16/18 17:47 Pulse Oximetry 95 10/18/18 07:18 Oxygen Delivery Method Room Air 10/18/18 07:18 Oxygen Flow Rate 0 10/18/18 07:18 Pain Level 8 10/18/18 11:05 Comment 10/18/18 06:07 Intake & Output 10/17/18 10/17/18 10/18/18 11:59 23:59 11:59 Intake Total 874.3 / 3637.633 2763.333 / 3637.633 2711.2 / 2711.2 Balance 874.3 / 3637.633 2763.333 / 3637.633 2711.2 / 2711.2 Intake: IV 874.3 / 2797.633 1923.333 / 2797.633 2 / 2010. Oral 840 / 840 700 / 700 Other: Urine Color Yellow Urine Appearance Clear Urine Odor Normal Comment reports voiding into toilet. Voiding Methods Toilet Toilet Laboratory Results WBC 12.33 k/cumm (4.4-10.8) H 10/18/18 06:50 RBC 4.47 m/cumm (4.50-6.00) L 10/18/18 06:50 Hgb 14.8 g/dL (13.5-17.5) D 10/18/18 06:50 Hct 43.1 % (40.0-50.0) 10/18/18 06:50 MCV 96.4 fL (80-95) H 10/18/18 06:50 MCH 33.1 pg (27.0-33.0) H 10/18/18 06:50 MCHC 34.3 g/dL (32.0-36.0) 10/18/18 06:50 RDW 13.5 % (11.8-14.1) 10/18/18 06:50 Plt Count 135 x1000/uL (130-400) 10/18/18 06:50 MPV 10.5 fL (8.0-11.0) 10/18/18 06:50 Immature Gran % 0.2 10/18/18 06:50 81.7 10/18/18 06:50 Cancelled 10/16/18 19:01 7.9 10/18/18 06:50 Atypical Lymphs % Cancelled 10/16/18 19:01 9.0 10/18/18 06:50 1.0 10/18/18 06:50 0.2 10/18/18 06:50 Cancelled 10/16/18 19:01 Cancelled 10/16/18 19:01 Cancelled 10/16/18 19:01 Absolute Neutrophils 10.07 k/cumm (1.2-6.7) H 10/18/18 06:50 Absolute Lymphocytes 0.97 k/cumm (1.2-3.4) L 10/18/18 06:50 Absolute Monocytes 1.11 k/cumm (0.11-0.7) H 10/18/18 06:50 Absolute Eosinophils 0.12 k/cumm (0.0-0.7) 10/18/18 06:50 Absolute Basophils 0.02 k/cumm (0.0-0.2) 10/18/18 06:50 Nucleated RBCs Cancelled 10/16/18 19:01 Cancelled 10/16/18 19:01 Cancelled 10/16/18 19:01 RBC Morphology Cancelled 10/16/18 19:01 Cancelled 10/16/18 19:01 Cancelled 10/16/18 19:01 Cancelled 10/16/18 19:01 Cancelled 10/16/18 19:01 Cancelled 10/16/18 19:01 Cancelled 10/16/18 19:01 Cancelled 10/16/18 19:01 Cancelled 10/16/18 19:01 Cancelled 10/16/18 19:01 Cancelled 10/16/18 19:01 Cancelled 10/16/18 19:01 Cancelled 10/16/18 19:01 Cancelled 10/16/18 19:01 Cancelled 10/16/18 19:01 Acanthocytes (Spur) Cancelled 10/16/18 19:01 Cancelled 10/16/18 19:01 Sodium 133 mmol/L (136-145) L 10/18/18 06:50 Potassium 3.5 mmol/L (3.5-5.1) 10/18/18 06:50 Chloride 98 mmol/L (98-107) 10/18/18 06:50 Carbon Dioxide 26.8 mmol/L (21.0-32.0) 10/18/18 06:50 8.2 mmol/L (3-11) 10/18/18 06:50 BUN 9 mg/dL (7-18) 10/18/18 06:50 0.73 mg/dL (0.70-1.30) 10/18/18 06:50 >= 60.00 (mL/min/1.73m2) 10/18/18 06:50 Glucose 89 mg/dL (70-100) 10/18/18 06:50 0.8 mmol/l (0.6-1.4) 10/17/18 10:30 Calcium 8.2 mg/dL (8.5-10.1) L 10/18/18 06:50 Magnesium 1.5 mg/dL (1.8-2.4) L 10/18/18 06:50 0.9 mg/dL (0.2-1.0) 10/18/18 06:50 AST 28 U/L (15-37) 10/18/18 06:50 ALT 26 U/L (12-78) 10/18/18 06:50 89 U/L (46-116) 10/18/18 06:50 Cancelled 10/16/18 19:01 5.9 g/dL (6.4-8.2) L 10/18/18 06:50 2.7 g/dL (3.4-5.0) L 10/18/18 06:50 4443 U/L (73-393) H 10/17/18 06:30 Patient ABO/Rh A Positive 10/16/18 18:05 Antibody Screen Negative 10/16/18 18:05
--- NOTE | 2018-10-18 13:11 | CMPROGNOTE_ITS ---
Care Management Progress Note S/O: Ankur has not shown signs of withdrawal; his last drink was reportedly 10/13/18. He continues to struggle with ongoing pain, and had not had a BM since admission per MD; bowel meds prescribed today. Diet will not be advanced at this time due to ongoing pain. Ankur was agreeable to nicotine replacement; patch ordered. He was working toward moving his bowels, sitting on the side of his bed when CM attempted to meet with him; CM will continue to follow. A: 47 year old male admitted to [facility] 10/16/18 for Alcohol Pancreatitis P: Rio remains on IVF and Medications, his diet was advanced last night to clear liquids and he was able to eat most of his dinner last night and lunch today. He remains on CIWA protocol. Rio will discharge home when ready per MD. 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 CM will continue to support Rio and his family and his discharge planning needs.
[2018-10-18] MEDS: HYDROmorphone 2 MG/ML VIAL 0.5 MG IVP ×2 (14:45→20:02)
[2018-10-18] MEDS: Ketorolac 30 MG/ML VIAL IVP ×2 (15:26→22:09)
[2018-10-18] MEDS: Multivitamin TAB 1 TAB PO (19:47)
[2018-10-19] MEDS: HYDROmorphone 2 MG/ML VIAL 0.5 MG IVP ×2 (00:07→05:45)
[2018-10-19] MEDS: LORazepam 1 MG TAB PO (00:08)
[2018-10-19] MEDS: Normal Saline 1,000 ML 200 ML IV ×2 (02:06→06:18)
[2018-10-19 03:56] VITALS: BP 142/94; PULSE 96; RESP 19; TEMP 36.9; O2SAT 97
[2018-10-19 07:14] LABS: Abs Immature Grans 0.03 k/cumm (0.0-0.09); Absolute Basophil Count 0.02 k/cumm (0.0-0.2); Absolute Eosinophil Count 0.12 k/cumm (0.0-0.7); Absolute Lymphocyte Count 0.53 k/cumm (1.2-3.4); Absolute Monocyte Count 0.89 k/cumm (0.11-0.7); Basophils % 0.2; HCT 37.9 % (40.0-50.0); HGB 13.6 g/dL (13.5-17.5); Immature Grans % 0.3; Lymphocytes % 4.6; Mean Corp. HGB Concentration 35.9 g/dL (32.0-36.0); Mean Corpuscular Hemoglobin 34.3 pg (27.0-33.0); Mean Corpuscular Volume 95.5 fL (80-95); Mean Platelet Volume 10.3 fL (8.0-11.0); Monocytes % 7.7; Neutrophils % 86.2; Platelet Count 152 x1000/uL (130-400); RBC 3.97 m/cumm (4.50-6.00); RBC Distribution Width 12.9 % (11.8-14.1); White Blood Cell Count 11.57 k/cumm (4.4-10.8)
[2018-10-19 07:15] LABS: Absolute Neutrophil Count 9.97 k/cumm (1.2-6.7)
[2018-10-19 07:56] LABS: ALT 23 U/L (12-78); AST 27 U/L (15-37); Albumin 2.4 g/dL (3.4-5.0); Alkaline Phosphatase 110 U/L (46-116); Anion Gap 11.6 mmol/L (3-11); BUN 7 mg/dL (7-18); Bilirubin, Total 0.9 mg/dL (0.2-1.0); CO2 22.4 mmol/L (21.0-32.0); CREATININE 0.51 mg/dL (0.70-1.30); Chloride 99 mmol/L (98-107); Glucose 84 mg/dL (70-100); Magnesium 1.9 mg/dL (1.8-2.4); Potassium 3.6 mmol/L (3.5-5.1); Sodium 133 mmol/L (136-145); Total Protein 5.8 g/dL (6.4-8.2)
[2018-10-19 08:02] VITALS: BP 172/100; PULSE 108; RESP 18; TEMP 37.3; O2SAT 96
[2018-10-19] MEDS: Docusate Sodium 100 MG CAP PO (08:11)
[2018-10-19] MEDS: Magnesium Chloride 64 MG TABCR PO ×2 (08:11→13:14)
[2018-10-19] MEDS: Thiamine 100 MG TAB PO (08:11)
[2018-10-19] MEDS: Multivitamin TAB 1 TAB PO (08:11)
[2018-10-19] MEDS: Folic Acid 1 MG TAB PO (08:11)
[2018-10-19] MEDS: Cetirizine 10 MG TAB PO (08:11)
[2018-10-19] MEDS: Nicotine 21 MG/24 HR PATCH TD (08:12)
[2018-10-19] MEDS: Polyethylene Glycol 3350 17 GM PACKET PO (08:12)
[2018-10-19 08:22] LABS: Lipase 750 U/L (73-393)
[2018-10-19 09:14] LABS: *AMPHETAMINES SCREEN URINE Negative (Negative); *BARBITURATES SCREEN URINE Negative (Negative); *BENZODIAZEPINES SCREEN URINE Negative (Negative); Cannabinoids THC POSITIVE (Negative); Cocaine Screen,Urine Negative (Negative); METHADONE URINE SCREEN Negative (Negative); OPIATES URINE SCREEN POSITIVE (Negative)
[2018-10-19 09:15] LABS: Tricyclic Antidepressants Negative (Negative)
[2018-10-19] MEDS: Ketorolac 30 MG/ML VIAL IVP (11:00)
[2018-10-19 11:26] VITALS: BP 151/96; PULSE 105; RESP 19; TEMP 37.3; O2SAT 97
--- NOTE | 2018-10-19 12:53 | W.PM.DS.N ---
Date of service: 10/19/18 Time of Service: 12:53 DS: Diagnosis Discharge Diagnosis (1) Pancreatitis: Status: Chronic (2) Alcohol abuse: Status: Chronic (3) Tobacco abuse: Status: Acute (4) Constipation: Status: Acute (5) Hypomagnesemia: Status: Acute (6) Pulmonary nodule: Status: Acute (7) DVT prophylaxis: Status: Acute Discharge Plan Disposition Patient Disposition: HOME Condition: Improving Discharge Details Chief Complaint: Abd Prob Clinical Impression: Acute pancreatitis, Right iliac artery stenosis Reason For Visit: PANCREATITIS Admit Date/Time: 10/16/18 19:40 Admit Provider: Oliverio Perdue Attending Provider: Oliverio Perdue Primary Care Provider: None,None ED Provider: Jacinto Shay Hospital Course Hospital Course: 47 male with h/o alcohol abuse, says he drinks a pint of spirits daily, last niharika few days ago. here with 2 days or worsening epigastric pain, radiating to back. In ER lipase [address] findings of pancreatitis (no gall stones). Patient admitted for further management. During hospitalization patient received 2 days of IVF with slow introduction into clears. He was on CIWA scoring only 3-4. His last drink on the 7th. He had a large BM yesterday and today he states his abdominal pain is better he is just having his chronic back pain. He feels he is ready to go home. His lipase is down to 750. He was found to have a 5 mm pulmonary nodule by CT, recommend he follow up with his PCP and pulomonology for further work up. Home Meds and New Rx's Prescriptions: New oxycodone [Roxicodone] 5 mg tablet 5 mg PO Q6H Qty: 10 RF: 0 Continued ibuprofen 600 MG tablet 600 mg PO PRN PRNRF: 0 Discharge Instructions Instructions: Pancreatitis (GEN), Alcohol Intoxication (GEN), Alcohol Withdrawal (GEN), Pulmonary Nodules (GEN), Alcohol Dependence (GEN), Alcohol Use Disorder (GEN) Additional Instructions: Follow up with primary provider in 1-2 weeks. Recommend work up for pulmonary nodule Eat only bland foods until feeling completely better. Do not drink alcohol while on pain medications. Seek medical treatment if you have chest pain, shortness of breath, nausea, vomiting, diarrhea. Activity:: Activity as Tolerated Equipment/Supplies:: No Equipment Needed Diet:: As Tolerated Discharge Orders Discharge Orders: Discharge Order (Routine); Ordered 10/19/18 Ordered By: Jessa Mora Exam Narrative Exam Narrative: Const: Pleasant male lying in bed. Neck: no lyphedema, normal appearance Chest: Normal appearance. Resp: breaths even unlabored, speaks complete sentences and LSC to all bases. Cardio:RRR, S1, S2, no murmur appreciated. GI: abdomen BS normoactive in all quads. Belly soft, less distended. No pain upon palpation Skin: intact no open areas, wounds, rashes. Neuro: Intact, AAOx 3 Extremities: no clubbing, cyanosis, swelling. DS: Data Vitals/I&O Vitals and I&O: Vital Signs Temperature 37.3 C 10/19/18 08:02 Temperature Source Tympanic 10/19/18 08:02 Pulse 108 H 10/19/18 08:02 Pulse Rhythm Regular 10/19/18 08:44 Pulse 98 H 10/16/18 21:01 Respiratory Rate 18 10/19/18 08:02 Respiratory Effort Non-Labored 10/19/18 08:44 Respiratory Depth Shallow 10/19/18 08:44 Respiratory Pattern Normal 10/19/18 08:44 Blood Pressure 172/100 H 10/19/18 08:02 Blood Pressure Mean 134 10/16/18 21:01 Blood Pressure Position Supine 10/16/18 17:47 Pulse Oximetry 96 10/19/18 08:02 Oxygen Delivery Method Room Air 10/19/18 08:02 Oxygen Flow Rate 0 10/19/18 08:02 Pain Level 7 10/19/18 11:00 Comment 10/19/18 03:56 Intake & Output 10/18/18 10/19/18 10/19/18 23:59 11:59 23:59 Intake Total 3276.666 / 6967.866 4230 / 4230 Output Total 300 / 300 1825 / 1825 Balance 2976.666 / 6667.866 2405 / 2405 Intake: IV 2826.666 / 5817.866 3680 / 3680 Oral 450 / 1150 550 / 550 Output: Urine 300 / 300 1825 / 1825 Other: Urine Color Dark Yaneli Straw Urine Appearance Clear Clear Urine Odor Normal Stool Size Copious Stool Characteristics Soft Formed Liquid Voiding Methods Urinal Urinal Completed studies during hospitalization [Text1]: CT Angiography Abdomen and Pelvis With Contrast EXAM DATE/TIME: 10/16/2018 6:02 PM CLINICAL HISTORY: 47 years old, male; Other: Abdominal pain, mid abd, radiating to back TECHNIQUE: Imaging protocol: Axial computed tomographic angiography images of the abdomen and pelvis with intravenous contrast material. Coronal and sagittal reformatted images were created and reviewed. 3D renderinD reconstructed images were created and reviewed. Radiation optimization: All CT scans at this facility use at least one of these dose optimization techniques: automated exposure control; mA and/or kV adjustment per patient size (includes targeted exams where dose is matched to clinical indication); or iterative reconstruction. Contrast material: OMNIPAQUE 350; Contrast volume: 100 ml; Contrast route: IV; COMPARISON: No relevant prior studies available. FINDINGS: Lungs: 5 mm soft tissue nodule right middle lobe. 4 image 4. VASCULATURE: Aorta: Moderate atherosclerotic change involves the aorta. Celiac trunk and mesenteric arteries: No occlusion or significant stenosis. Renal arteries: No occlusion or significant stenosis. Right iliac arteries: There is a critical stenosis of the right common iliac artery. There appears to be occlusion of the right internal iliac artery with distal reconstitution. Left iliac arteries: There is occlusion of the proximal left internal iliac artery with distal reconstitution. ABDOMEN: Liver: No mass. Gallbladder and bile ducts: Unremarkable. No calcified stones. No ductal dilation. Pancreas: There is moderate to severe peripancreatic soft tissue stranding particularly involving the body and tail with minimal head involvement. There is abnormal soft tissue stranding and some fluid attenuation in the left paracolic gutter. Spleen: Unremarkable. No splenomegaly. Adrenals: Unremarkable. No mass. Kidneys and ureters: Unremarkable. No solid mass. No hydronephrosis. Stomach and bowel: Unremarkable. No obstruction. No mucosal thickening. Appendix: No evidence of appendicitis. PELVIS: Bladder: Unremarkable. No mass. Reproductive: Unremarkable as visualized. ABDOMEN and PELVIS: Intraperitoneal space: See Pancreas Finding. Bones/joints: Moderate thoracolumbar spondylosis. Soft tissues: Unremarkable. Lymph nodes: Unremarkable. No enlarged lymph nodes. IMPRESSION: 1. Findings consistent with severe, acute pancreatitis. Clinical and laboratory correlation requested. 2. Critical stenosis right common iliac artery. 3. Bilateral internal iliac artery occlusions with distal reconstitution. COMMENT: Preliminary interpretation is based on receipt of 1532 image(s). A final report will be issued subsequently. Dictated and Authenticated by: Jessica Fairbanks MD. Labs on day of discharge: Labs from last 24 hours 10/19/18 10/19/18 10/19/18 08:15 06:25 06:25 WBC 11.57 H RBC 3.97 L Hgb 13.6 Hct 37.9 L MCV 95.5 H MCH 34.3 H MCHC 35.9 RDW 12.9 Plt Count 152 MPV 10.3 Immature Gran % 0.3 Neutrophils % 86.2 Lymphocytes % 4.6 Monocytes % 7.7 Eosinophils % 1.0 Basophils % 0.2 Absolute Neutrophils 9.97 H Absolute Lymphocytes 0.53 L Absolute Monocytes 0.89 H Absolute Eosinophils 0.12 Absolute Basophils 0.02 Sodium 133 L Potassium 3.6 Chloride 99 Carbon Dioxide 22.4 Anion Gap 11.6 H BUN 7 Creatinine 0.51 L Estimated GFR/1.73 m2 >= 60.00 Glucose 84 Calcium 8.0 L Magnesium 1.9 Total Bilirubin 0.9 AST 27 ALT 23 Alkaline Phosphatase 110 Total Protein 5.8 L Albumin 2.4 L Lipase 750 H Urine Opiates Screen Positive Urine Methadone Screen Negative Ur Barbiturates Screen Negative Ur Tricyclics Screen Negative Ur Amphetamines Screen Negative U Benzodiazepines Scrn Negative Urine Cocaine Screen Negative Ur THC Screen Positive [facility] Medical History Alcohol abuse (Chronic) Tobacco abuse (Acute) Social History Smoking/Tobacco Use Status: Current every day Alcohol Intake: current Alcohol Intake frequency: 3 or more drinks per day Alcohol type: beer and hard liquor Drug use: Never Do you feel safe in your relationship?: Yes
[2018-10-19] MEDS: Acetaminophen 500 MG TAB 1000 MG PO (13:14)
--- NOTE | 2018-10-19 15:26 | NUR.NOTE ---
Pt's significant other here to olive picker left belongings including wallet.
--- NOTE | 2018-10-19 17:42 | PDOC.CMDIS ---
- If Service Date Differs Date of service: 10/19/18 Time of Service: 17:42 LACE Index Scoring Tool - Questions: Length of Stay (in days): 3 Acuity (Admit via E.D.?): Yes E.D. Visits: 2 - Answers: Total Score: 8 Risk of Readmission: Low Risk Care Management Discharge Reason for Hospitalization: Pancreatitis Discharge Plan: Rio will be discharged home with no services. He will follow up with his PCP (new, one time visit) and discharge plan of care. Rio will be transported by private vehicle with his girlfriend. Patient/Family Education Needs: Discharge plan, limitations, follow up plan and Ask Me Three.
--- NOTE | 2018-10-20 10:35 | PT.INNT ---
Date of service: 10/20/18 PT Notes Referral for physical therapy services was made on 10/19/2018 but patient was discharged same day. No skilled PT services were provided. Thank you very much for this referral. Danay Live PT, DPT, CLT [facility]
== END 2018-10-19 02:02 | disposition home or self-care (01) | DRG 440 ==
LOC: ER 20:23 → MS 21:11
PROVIDERS: Nurse Practitioner Family; Admitting Provider General Practice; Emergency Provider Student in an Organized Health Care Education/Training Program; Visit Provider Internal Medicine
DX: K85.20 Alcohol induced acute pancreatitis without necrosis or infection (principal); F10.10 Alcohol abuse, uncomplicated; F17.210 Nicotine dependence, cigarettes, uncomplicated; K59.00 Constipation, unspecified; E83.42 Hypomagnesemia; R91.1 Solitary pulmonary nodule
CPT/HCPCS: 36415; 80048; 80053; 80307; 83690; 85027; 86850; 86900; 86901; 93005; 96361; 96374; 96376; 99222; 99233; 99239; 99285; 74174; 83605; 83735; 84484; 85007; 85025; 93010; J1885; J3475; J3490; J7060

== ENCOUNTER 2019-04-26 10:33 | Emergency (ER) | payer MEDICARE, MEDICAID, SELFPAY ==
[2019-04-26 10:49] VITALS: BP 135/105; PULSE 115; RESP 20; TEMP 36.7; O2SAT 96
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
--- NOTE | 2019-04-26 12:04 | DI.CT_ITS ---
EXAM: CT HEAD WO CT HEAD WO CLINICAL HISTORY: head trauma, loc. head trauma, loc TECHNIQUE: Imaging Protocol: Axial computed tomography images with coronal and sagittal reformatted images were created and reviewed COMPARISON: No exams were available for comparison FINDINGS: The ventricular system is normal in appearance. No evidence of acute intracranial hemorrhage, mass effect, or midline shift. The orbital structures are unremarkable. The temporal bone structures appear intact. Calvarium: Normal. Visualized Paranasal sinuses/Mastoids: Clear. IMPRESSION: Normal cranial CT. DATA REPOSITORY: All CT scans at this facility are submitted to the National Radiology Data Registry (NRDR) Dose Index Registry (DIR) with the [employer] (ACR). RADIATION OPTIMIZATION: All CT scans at this facility use at least one of these dose optimization te chniques: automated exposure control; mA and/or kV adjustment per patient size (includes targeted exa ms where dose is matched to clinical indication); or iterative reconstruction.
== END 2019-04-26 12:25 | disposition home or self-care (01) ==
PROVIDERS: Emergency Provider Emergency Medicine; PCP Family Medicine
DX: S01.81XA Laceration without foreign body of other part of head, initial encounter (principal); W22.8XXA Striking against or struck by other objects, initial encounter
CPT/HCPCS: 12011; 70450

== ENCOUNTER 2021-03-20 14:47 | Emergency (ER) | payer MEDICAID, SELFPAY ==
[2021-03-20 14:56] VITALS: BP 144/120; PULSE 84; RESP 18; TEMP 36.8; O2SAT 99
--- NOTE | 2021-03-20 15:24 | W.ED.GENAD ---
Discharge Plan Disposition Patient Disposition: HOME Condition: Improving Discharge Details Clinical Impression: Dental infection Primary Care Provider: Unknown,Unknown ED Provider: Ta Eller Home Meds and New Rx's Prescriptions: New penicillin V potassium 500 mg tablet 500 mg PO Q6H 10 Days Qty: 40 RF: 0 Continued ibuprofen 600 MG tablet 600 mg PO PRN PRNRF: 0 Discharge Instructions Instructions: Dental Abscess (ED) Additional Instructions: Take antibiotics as prescribed. May continue ibuprofen 600 to 800 mg every 8 hours, with food as needed for pain. May use the provided hydrocodone as needed for breakthrough pain. This medication contains Tylenol and you should not take any additional Tylenol with this medication. Please see please see enclosed dentistry follow-up list. You may also consider calling the [facility] as they have dentistry available as well. Return for any acute concerns. Medical Decision Making 50-year-old male with generally poor dentition presents with 4 days of right maxillary buccal asked neck swelling. He has fairly impressively poor dentition throughout with numerous missing teeth. This is a apical infection that I will treat with penicillin. There is no obvious abscess. He will require dentistry follow-up. He was consented for the use of a small number of oral analgesia. He is stable appropriate for discharge at this time. HPI General Mode of arrival: ambulatory. Date/Time Provider Initiated Documentation: 03/20/21 14:48. Limitations to Documentation: no limitations. Information obtained by: patient. History of Present Illness 50 year old M presents to the emergency department with the chief complaint of Right face swelling, poor teeth, pain, described as moderate and similar to prior episodes, Quality is described as dull and constant, and is localized to the head, face and right. Patient reports no radiation. Patient started experiencing this day(s) and it has been constant. No relieving factors improve symptom(s), No exacerbating factors reported . Patient notes denies fever/chills. Patient did receive the following treatments prior to arrival, none Related Data Home Medications Medication Instructions Recorded Confirmed ibuprofen 600 mg PO PRN PRN 09/12/14 03/20/21 penicillin V potassium 500 mg PO Q6H 10 Days #40 tab 03/20/21 Previous Rx's Medication Instructions Recorded penicillin V potassium 500 mg PO Q6H 10 Days #40 tab 03/20/21 Allergies Allergy/AdvReac Type Severity Reaction Status Date / Time pregabalin [From Lyrica] Allergy Mild Verified 03/20/21 14:58 tramadol AdvReac Nausea Unverified 03/20/21 14:58 General Stated Complaint: DentalOral RAMIREZ: 3 Review of Systems Narrative: 6 systems reviewed and otherwise negative PFSH All Active Problems (Updated 03/20/21 @ 15:27 by Ta Eller MD) Dental infection (Acute) Major depression (Acute) Bipolar 1 disorder (Acute) PTSD (post-traumatic stress disorder) (Acute) Alcoholic pancreatitis (Chronic) Pulmonary nodule (Acute) Alcohol abuse (Chronic) Tobacco abuse (Acute) DVT prophylaxis (Acute) Medical History (Updated 03/20/21 @ 15:27 by Ta Eller MD) Constipation Hypomagnesemia Sleep disturbance Family History Mother , age 40 Heart disease Father Diabetes Brother No problems noted. Daughter No problems noted. Social History Smoking/Tobacco Use Status: Current every day Tobacco Type: cigarettes and e-cigarettes Second Hand Exposure: Yes Smoking risk assessment performed?: Yes Alcohol Intake: current Alcohol Intake frequency: a few times a month Drug use: Never Substance use type: does not use Caregiver/Support person: No Household members: significant other Housing: house Do you need help understanding health information?: Often Pets and animals: Yes Pets and animals: cat(s) and dog(s) Sexually active: No Do you think of yourself as: straight/heterosexual Current gender identity: male What is your relationship status?: living with partner How often do you talk on the phone with friends or family?: three or more times per week How often do you get together with friends or relatives?: decline to answer How often do you attend pentecostalism or synagogue services?: decline to answer Do you belong to any clubs or organized social groups?: no Panel score (0-1 are the most socially isolated patients): 2 What type of physical activity do you participate in: other Details: stretches, working on house Gale/Adventism: No preference Special gale needs: No Seatbelt use: always Helmet use: Yes Helmet use: always Drive intox or ride w/intox driver/merchandiser: No Do you feel safe at home: Yes Do you feel safe in your relationship?: Yes Exam Narrative Exam Narrative: GEN: awake, alert, oriented 3. Pleasant, well groomed, interactive. HEAD: Normocephalic, atraumatic ENT: Mucous membranes moist, oropharynx with numerous dental caries, missing teeth, right maxillary buccal aspect soft tissue swelling without pointing fluctuance, uvula midline, External ear exam unremarkable EYES: PERRL, EOMI NECK: Full ROM, no ONESIMO, no menigismus Neuro: Grossly normal neurologic exam, conversant, interactive. Psych: Speech fluent, thoughts congruent, affect normal Course Vital Signs Vital signs: Vital Signs Temperature 36.8 C 03/20/21 14:56 Pulse 84 03/20/21 14:56 Respiratory Rate 18 03/20/21 14:56 Blood Pressure 144/120 H 03/20/21 14:56 Pulse Oximetry 99 03/20/21 14:56 Temperature 36.8 C 03/20/21 14:56 Temperature Source Temporal Artery Scan 03/20/21 14:56 Pulse 84 03/20/21 14:56 Respiratory Rate 18 03/20/21 14:56 Respiratory Effort Non-Labored 03/20/21 14:59 Blood Pressure 144/120 H 03/20/21 14:56 Blood Pressure Position Sitting 03/20/21 14:56 Pulse Oximetry 99 03/20/21 14:56 Oxygen Delivery Method Room Air 03/20/21 14:56 Oxygen Flow Rate 0 03/20/21 14:56 Pain Level 9 03/20/21 14:59 PAWSS Have you Been Recently Intoxicated or Drunk Within the Last 30 days?: No Have you Ever Experienced Previous Episodes of Alcohol Withdrawal?: No Have you ever Experienced Withdrawal Seizures?: No Have you ever Experienced Delirium Tremens(DT)s?: No Have you ever undergone Alcohol Rehabilitation Treatment (i.e, inpt ot outpatient treatment programs)?: No Have you ever Experienced Blackouts?: No Have you ever Combined Alcohol with other Downers within the last 90 days?: No Have you ever Combined Alcohol with any other Substance of Abuse during the last 90 days?: No Positive Blood Alcohol level on Presentation? [PCS.BAL]: No Evidence of Increased Autonomic Activity (i.e. HR>120, tremor, sweating, agitation, nausea)?: No Result: 0
[2021-03-20] MEDS: Penicillin V POTASSIUM 500 MG TAB, 4 TABS/BTL PO (15:49)
== END 2021-03-20 15:43 | disposition home or self-care (01) ==
PROVIDERS: Emergency Provider Emergency Medicine
DX: R22.1 Localized swelling, mass and lump, neck (principal); K04.7 Periapical abscess without sinus
CPT/HCPCS: 99283

== ENCOUNTER 2021-05-04 02:51 | Emergency (ER) | payer MEDICAID, SELFPAY ==
[2021-05-04] VITALS (20 sets, daily range): BP systolic 100–224; BP diastolic 70–184; PULSE 71–130; RESP 10–25; TEMP 36.5; O2SAT 91–100
[2021-05-04] MEDS: Etomidate 20 MG/10 ML VIAL IVP (02:54)
[2021-05-04] MEDS: Propofol 200 MG/20 ML VIAL 40 MG IVP (02:55)
[2021-05-04] MEDS: Succinylcholine 200 MG/10 ML VIAL 100 MG IVP (02:56)
[2021-05-04] MEDS: Midazolam 2 MG/2 ML VIAL IVP (02:57)
--- NOTE | 2021-05-04 03:00 | DI.RAD_ITS ---
Exam(s) XR CERVICAL SPINE 1V EXAM: XR CERVICAL SPINE 1V CLINICAL HISTORY: trauma. TECHNIQUE: 2D digital imaging was performed. Single cross-table lateral view of the cervical spine was obtained. COMPARISON: No exams were available for comparison FINDINGS: BONES: C1 through the C5-C6 disc level are visualized. There is normal alignment. Degenerative thomas ges are seen at the C4-5 and C5-C6 levels. No fracture or destructive lesion. Vertebral bodies are u nremarkable. DISKS: Intervertebral disc spaces are maintained. ALIGNMENT: Cervical spinal alignment is within normal limits. SOFT TISSUE: Both an endotracheal and orogastric tube are noted. No significant prevertebral soft ti ssue swelling. IMPRESSION: No acute abnormalities. The lower cervical vertebra are not well seen and cannot be assessed. DATA REPOSITORY: RADIATION DOSE DELIVERED:
--- NOTE | 2021-05-04 03:00 | DI.RAD_ITS ---
Exam(s) XR PORTABLE CHEST AP EXAM: XR PORTABLE CHEST AP CLINICAL HISTORY: trauma TECHNIQUE: 2D digital imaging was performed of the chest. Two images were obtained. AP views were obtained. COMPARISON: No exams were available for comparison FINDINGS: MEDIASTINUM: Normal. HEART: Normal. PULMONARY VASCULATURE: Normal. LUNGS: There is an ovoid opacity in the lateral aspect of the left mid lung. The lungs are otherwise clear. PLEURAL SPACE: No pleural effusion or pneumothorax. BONE:Within normal limits for the patient's age. OTHER FINDINGS:The endotracheal tube is in good position 6 cm above the fernando. IMPRESSION: 1. Endotracheal tube 6 cm above the fernando. 2. Ovoid opacity in the left mid lung. Pulmonary mass cannot be excluded. Further evaluation is rec ommended. DATA REPOSITORY: RADIATION DOSE DELIVERED:
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
[2021-05-04 03:15] LABS: HCT 41.9 % (40.0-50.0); HGB 13.6 g/dL (13.5-17.5); MCH 29.8 pg (27.0-33.0); MCHC 32.5 % (32.0-36.0); MCV 91.7 fL (80-95); MPV 9.3 fL (8.0-11.0); Platelet Count 380 10^3/uL (130-400); RBC 4.57 10^6/uL (4.36-5.78); RDW-SD 47.7 fL
[2021-05-04 03:17] LABS: AST 18 U/L (15-37); Albumin 3.5 g/dL (3.4-5.0); Alkaline Phosphatase 69 U/L (46-116); Anion Gap 6.3 mmol/L (3-11); BUN 16 mg/dL (7-18); Bilirubin, Total 0.3 mg/dL (0.2-1.0); CO2 28.7 mmol/L (21.0-32.0); Calcium 8.8 mg/dL (8.5-10.1); Chloride 99 mmol/L (98-107); Glucose 194 mg/dL (74-106); Potassium 4.4 mmol/L (3.5-5.1); Sodium 134 mmol/L (136-145); Total Protein 7.4 g/dL (6.4-8.2)
[2021-05-04 03:18] LABS: ALT 16 U/L (16-63)
[2021-05-04 03:21] LABS: Source Nasal/Nares
[2021-05-04 03:24] LABS: ETHANOL BLOOD < 3.0 mg/dL (<10)
[2021-05-04] MEDS: fentaNYL 250 MCG/5 ML VIAL ×2 (03:40→03:56)
[2021-05-04] MEDS: fentaNYL 1,000 MCG in Normal Saline 80 ML 7.65 MCG IV (03:40)
[2021-05-04] MEDS: Tetanus & Diphtheria Tox,ADULT 0.5 ML VIAL IM (03:42)
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
[2021-05-04] MEDS: ceFAZolin 1 GM/50 ML BAG IVPB (03:55)
[2021-05-04] MEDS: fentaNYL 100 MCG/2 ML VIAL (03:57)
[2021-05-04 03:58] LABS: COVID-19 PCR Negative (Negative)
[2021-05-04 04:25] LABS: *AMPHETAMINES SCREEN URINE Positive (Negative); *BARBITURATES SCREEN URINE Negative (Negative); *BENZODIAZEPINES SCREEN URINE Positive (Negative); Cannabinoids THC Negative (Negative); Cocaine Screen,Urine Positive (Negative); METHADONE URINE SCREEN Negative (Negative); OPIATES URINE SCREEN Negative (Negative)
[2021-05-04 04:26] LABS: Tricyclic Antidepressants Negative (Negative)
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
[2021-05-04] MEDS: PROPOFOL 500 MG/50 ML BTL IVPB (04:40)
[2021-05-04] MEDS: PROPOFOL 1,000 MG/100 ML BTL 1000 MG (04:40)
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
--- NOTE | 2021-05-04 05:56 | RESPIRATORY ---
0330 RT arrived to pt already intubated with 8.0 ETT, 26cm at lips. CMV+ 500ml x 14+5. FiO2 25%. Pt suctioned orally. Lungs clear to auscultation. Pt departed via [facility] @ 0440.
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
[2021-05-04] MEDS: Normal Saline 100 ML (21:16)
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
== END 2021-05-04 04:33 | disposition short-term general hospital (02) ==
PROVIDERS: Emergency Provider Emergency Medicine
DX: S11.83XA Puncture wound without foreign body of other specified part of neck, initial encounter (principal); W34.00XA Accidental discharge from unspecified firearms or gun, initial encounter
CPT/HCPCS: 31500; 51702; 80053; 80307; 85027; 86850; 86900; 86901; 87635; 96365; 96368; 96372; 96375; 71045; 72020; 80320; 99281; J0690; J2250; J2704; J3010

== ENCOUNTER 2021-09-04 18:25 | Outpatient (REF) | payer MEDICAID, SELFPAY ==
[2021-09-06 11:12] LABS: COVID-19 RT-PCR UVMMC Result Negative (Negative)
== END 2021-09-04 18:26 | disposition home or self-care (01) ==
LOC: LBN 18:25
PROVIDERS: PCP Nurse Practitioner Family; Visit Provider Nurse Practitioner Family
DX: Z20.822 Contact with and (suspected) exposure to COVID-19 (principal); R09.89 Other specified symptoms and signs involving the circulatory and respiratory systems
CPT/HCPCS: U0003

== ENCOUNTER → 2021-10-16 01:52 | Outpatient (CLI) | payer MEDICAID, SELFPAY | PROVIDERS: PCP Nurse Practitioner Family; Visit Provider Thoracic Surgery (Cardiothoracic Vascular Surgery) ==

== ENCOUNTER → 2021-11-26 03:06 | Outpatient (CLI) | payer MEDICAID, SELFPAY ==
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
== END ==
PROVIDERS: PCP Nurse Practitioner Family; Visit Provider Thoracic Surgery (Cardiothoracic Vascular Surgery)
DX: J90 Pleural effusion, not elsewhere classified (principal)
CPT/HCPCS: 71046

== ENCOUNTER 2021-12-08 09:29 | Emergency (ER) | payer MEDICARE, MEDICAID, SELFPAY ==
[2021-12-08 09:34] VITALS: BP 159/90; PULSE 85; RESP 20; TEMP 36.7; O2SAT 100
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
[2021-12-08] MEDS: Penicillin V POTASSIUM 500 MG TAB, 4 TABS/BTL PO (10:14)
== END 2021-12-08 10:12 | disposition home or self-care (01) ==
PROVIDERS: Emergency Provider Emergency Medicine; PCP Nurse Practitioner Family
DX: K04.7 Periapical abscess without sinus (principal); F17.210 Nicotine dependence, cigarettes, uncomplicated; L02.818 Cutaneous abscess of other sites
CPT/HCPCS: 10160; 99283; 99284

== ENCOUNTER 2022-08-26 10:28 | Emergency (ER) | payer OTHER, SELFPAY ==
[2022-08-26 10:34] VITALS: BP 126/83; PULSE 65; RESP 18; TEMP 36.8; O2SAT 98
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
--- NOTE | 2022-08-26 11:45 | RT.EKG_ITS ---
APPROVED REPORT Exam: Resting ECG Reason for Exam: confusion Patient Location: E HR:69 bpm ECG Measurements Heart Rate 69 AXIS MS 133 P 83 QRSd 101 QRS 91 QT 439 T 57 QTc 470 Conclusion Sinus rhythm...normal P axis, V-rate 60- 99
[2022-08-26] MEDS: LORazepam 2 MG/ML VIAL 1 MG IVP ×2 (11:53→12:54)
[2022-08-26] MEDS: Normal Saline 1,000 ML 1000 ML IV (11:53)
[2022-08-26 11:58] LABS: Abs Immature Grans 0.04 10^3/uL (0.0-0.06); Absolute Basophil Count 0.06 10^3/uL (0.0-0.2); Absolute Eosinophil Count 0.06 10^3/uL (0.0-0.7); Absolute Lymphocyte Count 1.32 10^3/uL (1.2-3.4); Absolute Monocyte Count 0.71 10^3/uL (0.1-0.8); Basophils % 0.6; Eosinophils % 0.6; HCT 43.2 % (40.0-50.0); HGB 14.9 g/dL (13.5-17.5); Immature Grans % 0.4; Lymphocytes % 12.3; MCH 30.2 pg (27.0-33.0); MCHC 34.5 % (32.0-36.0); MCV 88 fL (80-95); MPV 9.1 fL (8.0-11.0); Monocytes % 6.6; Neutrophils % 79.5; Platelet Count 342 10^3/uL (130-400); RBC 4.93 10^6/uL (4.36-5.78); RDW 13.6 % (11.8-14.1); WBC 10.69 10^3/uL (4.4-10.8)
[2022-08-26 12:21] LABS: ALT 24 U/L (16-63); AST 23 U/L (15-37); Albumin 4.2 g/dL (3.4-5.0); Alkaline Phosphatase 76 U/L (46-116); Anion Gap 7.4 mmol/L (3-11); BUN 16 mg/dL (7-18); Bilirubin, Total 0.6 mg/dL (0.2-1.0); CO2 28.6 mmol/L (21.0-32.0); CREATININE 0.8 mg/dL (0.70-1.30); Calcium 9.8 mg/dL (8.5-10.1); Chloride 100 mmol/L (98-107); Estimated GFR 106.48 (mL/min/1.73m2); Glucose 132 mg/dL (74-106); Potassium 3.9 mmol/L (3.5-5.1); Sodium 136 mmol/L (136-145); Total Protein 8.4 g/dL (6.4-8.2)
[2022-08-26 12:24] LABS: Troponin I < 50 ng/L (<or=60)
[2022-08-26 12:25] LABS: ETHANOL BLOOD < 3.0 mg/dL (<10)
[2022-08-26] MEDS: Methadone Liquid 10 MG/ML 90 MG PO (12:26)
[2022-08-26 12:36] LABS: Ammonia 18 umol/L (11-32)
[2022-08-26 13:00] LABS: Acetaminophen < 2 ug/mL (10-30); Salicylate 2.9 mg/dL (<2.8)
--- NOTE | 2022-08-26 13:38 | NUR.NOTE ---
pt shows improvement with agitation after ativan and methadone.
[2022-08-26] MEDS: levETIRAcetam 1,000 MG in Normal Saline 100 ML 400 MG IVPB (13:45)
[2022-08-26] MEDS: Dexamethasone 10 MG/ML VIAL IVP (13:45)
[2022-08-26 14:09] VITALS: BP 110/86; PULSE 62; RESP 18; O2SAT 98
[2022-08-26 15:54] LABS: Bilirubin Negative (Negative); Blood Small (Negative); Clarity Clear (Clear); Glucose Negative (Negative); Ketones Negative (Negative); Leukocyte Esterase Negative (Negative); Nitrite Negative (Negative); Specific Gravity 1.015 (1.005-1.025); Urobilinogen 0.2 mg/dL (Up to 0.2); pH 6.5 (5-8)
[2022-08-26 16:04] LABS: Bacteria Rare HPF (Negative); C & S Indicated? No; Casts Negative LPF (Negative); Crystals Negative HPF (Negative); Epithelial Cells Rare HPF (Negative); Mucus Negative (Negative); WBC Negative HPF (0-5)
[2022-08-26 16:15] LABS: *AMPHETAMINES SCREEN URINE Negative (Negative); *BARBITURATES SCREEN URINE Negative (Negative); Cannabinoids THC Negative (Negative); OPIATES URINE SCREEN Negative (Negative)
[2022-08-26 16:16] LABS: Tricyclic Antidepressants Negative (Negative)
[2022-08-26 16:18] LABS: Cocaine Screen,Urine Positive (Negative)
[2022-08-26 16:19] LABS: *BENZODIAZEPINES SCREEN URINE Positive (Negative)
--- NOTE | 2022-08-26 16:20 | NUR.NOTE ---
Nursing Note: Lab called stating corrected UDS report on cocaine and benzo previously were negative are now positive.
[2022-08-26] MEDS: Lactated Ringers 1,000 ML 112 ML IV (17:30)
[2022-08-26 18:07] VITALS: BP 108/72; PULSE 75; RESP 16; O2SAT 97
== END 2022-08-26 18:13 | disposition short-term general hospital (02) ==
PROVIDERS: Physician Assistant; Emergency Provider Physician Assistant; PCP Nurse Practitioner Family
DX: R94.02 Abnormal brain scan (principal); R53.1 Weakness; R41.82 Altered mental status, unspecified; F11.20 Opioid dependence, uncomplicated; Z85.110 Personal history of malignant carcinoid tumor of bronchus and lung; F32.A Depression, unspecified; F41.9 Anxiety disorder, unspecified
CPT/HCPCS: 36415; 36416; 80053; 80307; 82962; 93005; 96361; 96365; 96375; 96376; 99285; 70450; 71046; 72125; 80320; 80329; 81003; 81015; 82140; 84484; 85025; 93010; J1100; J1953; J2060

== ENCOUNTER 2023-05-21 23:44 | Emergency (ER) | payer MEDICARE, MEDICAID, SELFPAY ==
--- NOTE | 2023-05-21 23:30 | RT.EKG_ITS ---
APPROVED REPORT Exam: Resting ECG Reason for Exam: seizure Patient Location: E HR:84 bpm ECG Measurements Heart Rate 84 AXIS RI 138 P 75 QRSd 95 QRS 35 QT 395 T 63 QTc 468 Conclusion Sinus rhythm...normal P axis, V-rate 60- [address]. [address] segment or T wave abnormalities to suggest occlusive ME.
[2023-05-21 23:37] VITALS: PULSE 83; RESP 18
[2023-05-21] MEDS: Midazolam 5 MG/5 ML VIAL (23:54)
[2023-05-21 23:55] VITALS: PULSE 91; RESP 19
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
[2023-05-21 23:57] VITALS: BP 120/73; PULSE 82
[2023-05-22] VITALS (90 sets, daily range): BP systolic 85–250; BP diastolic 57–151; PULSE 59–117; RESP 6–23; TEMP 36.5–37.2; O2SAT 92–100
[2023-05-22] MEDS: Midazolam 5 MG/5 ML VIAL ×2 (00:05→00:28)
[2023-05-22 00:31] LABS: Abs Immature Grans 0.02 10^3/uL (0.0-0.06); Absolute Basophil Count 0.09 10^3/uL (0.0-0.2); Absolute Eosinophil Count 0.49 10^3/uL (0.0-0.7); Absolute Monocyte Count 1.03 10^3/uL (0.1-0.8); Absolute Neutrophil Count 4.48 10^3/uL (1.2-6.7); Basophils % 1.2; Eosinophils % 6.4; HCT 38.5 % (40.0-50.0); Immature Grans % 0.3; Lymphocytes % 20.8; MCH 30.4 pg (27.0-33.0); MCHC 33.8 % (32.0-36.0); MCV 90 fL (80-95); MPV 9.2 fL (8.0-11.0); Monocytes % 13.4; Neutrophils % 57.9; Platelet Count 256 10^3/uL (130-400); RBC 4.28 10^6/uL (4.36-5.78); RDW 13.2 % (11.8-14.1); RDW-SD 43.7 fL; WBC 7.71 10^3/uL (4.4-10.8)
[2023-05-22 00:32] LABS: BE (Venous) 4 mmol/L (-2-3); HCO3 (Venous) 29 mmol/L (23-28); O2 Sat (Venous) 86 %; TCO2 (Venous) 27 mmol/L (24-29); pCO2 (Venous) 56 mmHg (41-51); pH (Venous) 7.33 (7.31-7.41); pO2 (Venous) 53 mmHg
[2023-05-22] MEDS: Ketamine 500 MG/5 ML VIAL (00:36)
[2023-05-22] MEDS: Rocuronium 50 MG/5 ML SYR 100 MG IVP (00:42)
[2023-05-22] MEDS: Etomidate 20 MG/10 ML VIAL 30 MG IVP (00:42)
[2023-05-22 00:58] LABS: ALT 285 U/L (16-63); AST 173 U/L (15-37); Albumin 3.7 g/dL (3.4-5.0); Alkaline Phosphatase 93 U/L (46-116); Anion Gap 9.7 mmol/L (3-11); BUN 16 mg/dL (7-18); Bilirubin, Total 0.5 mg/dL (0.2-1.0); CO2 29.3 mmol/L (21.0-32.0); Calcium 9.3 mg/dL (8.5-10.1); Chloride 102 mmol/L (98-107); ETHANOL BLOOD < 3.0 mg/dL (<10); Glucose 123 mg/dL (74-106); Potassium 3.9 mmol/L (3.5-5.1); Sodium 141 mmol/L (136-145); TSH (W/Ref FT4) 3.04 uIU/mL (0.36-3.74); Total Protein 7.4 g/dL (6.4-8.2)
--- NOTE | 2023-05-22 01:00 | DI.RAD_ITS ---
Exam(s) XR PORTABLE CHEST AP EXAM: XR PORTABLE CHEST AP CLINICAL HISTORY: post line TECHNIQUE: 2D digital imaging was performed of the chest. One image was obtained. An AP view was ob tained. COMPARISON: CR,XR XR PORTABLE CHEST AP from 05/04/2021 CR XR CHEST 2V PA LATERAL from 08/26/2022 FINDINGS: There is overlying monitoring equipment. MEDIASTINUM: Normal. HEART: Normal. PULMONARY VASCULATURE: Normal. LUNGS: Clear. PLEURAL SPACE: No pleural effusion or pneumothorax. BONE:Within normal limits for the patient's age. OTHER FINDINGS:The tip of the endotracheal tube is seen at the thoracic inlet. It measures 9 cm from the fernando. The enteric tube passes into the stomach in good position. The tip is not included on the inferior aspect of the film. IMPRESSION: No acute pulmonary findings. DATA REPOSITORY: RADIATION DOSE DELIVERED:
--- NOTE | 2023-05-22 01:00 | DI.CT_ITS ---
Exam(s) CT HEAD CERV SPINE FACIAL WO EXAM: CT HEAD CERV SPINE FACIAL WO CLINICAL HISTORY: new seizure known brain mets. TECHNIQUE: Imaging Protocol: Axial computed tomography images with coronal and sagittal reformatted images were created and reviewed COMPARISON: CT CT HEAD CERVICAL SPINE WO from 08/26/2022 FINDINGS: CT Head: Ventricles and Extra axial spaces: Mild ex vacuo dilatation of the occipital horn of the left lateral ventricle. Hemorrhage: None. Cerebral parenchyma: No evidence of acute hemorrhage or acute infarct. Area of encephalomalacia in t he high left parietal lobe related to resection of previous mass. Midline shift: None. Brainstem/Cerebellum: Normal. Calvarium: Craniotomy defect over the left parietal region. Visualized Paranasal sinuses/Mastoids: Minimal mucosal thickening. Soft Tissues: Unremarkable. CT Face: Facial Bones: No fracture is noted in facial bones. Sinuses and Mastoids: Minimal mucosal thickening. Globes, extraocular muscles, optic nerves and retrobulbar fat: Normal. Upper aerodigestive tract: Oral tracheal tube and oral gastric tubes. Mandible and bilateral temporomandibular joints: Normal. Soft tissues: Normal. CT Cervical Spine: Bones: No acute fracture or subluxation. Degenerative disc changes at C5-6 through C7-T1. Soft Tissues: Unremarkable. Lung Apices: Mild emphysematous changes. No pneumothorax. IMPRESSION: 1. No acute intracranial process.Area of left parietal encephalomalacia related to prior excision of mass. 2. No acute fracture or subluxation in the cervical spine. Degenerative changes. 3. No acute facial fracture. RADIATION DOSE DELIVERED: 3,036.91mGy.cm Total DLP 3,036.91mGy.cm Total DLP DATA REPOSITORY: All CT scans at this facility are submitted to the National Radiology Data Registry (NRDR) Dose Index Registry (DIR) with the [employer] (ACR). RADIATION OPTIMIZATION: All CT scans at this facility use at least one of these dose optimization te chniques: automated exposure control; mA and/or kV adjustment per patient size (includes targeted exa ms where dose is matched to clinical indication); or iterative reconstruction.
--- NOTE | 2023-05-22 01:00 | DI.CT_ITS ---
Exam(s) CT CHEST/ABD/PEL W EXAM: CT CHEST/ABD/PEL W CLINICAL HISTORY: seizure, fall facial trauma. TECHNIQUE: Imaging Protocol: Axial computed tomography images with coronal and sagittal reformatted images were created and reviewed CONTRAST MATERIAL: Intravenous: Omnipaque 350 Contrast volume:100 ml Oral: / no COMPARISON: CT CT CHEST W CONTRAST from 08/03/2021 CR XR CHEST ONE VIEW from 09/05/2021 CR XR CHEST 2V PA LATERAL from 11/26/2021 CR,XR XR PORTABLE CHEST AP from 05/22/2023 FINDINGS: CHEST: Nasogastric tube tip in body of stomach. Tracheobronchial tree: Endotracheal tube with tip at level of top of aortic arch.. Patent where visu alized. Pulmonary parenchyma: Surgical clips left hilum. A adjacent scarring. No evidence of mass. Mild up per lobe emphysematous changes. Mild right basilar atelectasis. Pleura: Small bilateral pleural effusions. No pneumothorax. Lymph nodes: Within normal limits. Aorta: Thoracic portion non-dilated. Heart: No pericardial effusion. Bones: Old mild midthoracic compression fractures degenerative changes.. No lytic or blastic lesions .No compression fractures. Soft tissues: Unremarkable. ABDOMEN and PELVIS: Exam limited by streak artifact Liver: Normal density. Stable centimeter lesion in lateral left lobe unchanged, consistent with a hem angioma. Gallbladder and biliary tract: No evidence of stones or wall thickening. No biliary dilatation. Pancreas: Normal density, no abnormal calcifications or inflammatory process. Spleen: Normal. Kidneys: Normal size, contour and axis. No radiodense stones. No obstructive uropathy. No suspicious masses seen. Adrenal glands: No masses seen. Vasculature: Abdominal portion non-dilated. Severe atherosclerotic changes. Occlusion of the right common iliac artery through right common femoral artery with reconstitution via collaterals. Lymph nodes: Within normal limits. Soft tissues: Unremarkable. Bladder: Magallanes catheter in place. There is a 2.5 centimeter enhancing lesion at the left wall of the bladder suspicious for Bowel: Large quantity of stool. No obstruction or bowel wall thickening. Peritoneal cavity: No ascites. No focal collection. No mesenteric inflammatory response. Bones: Degenerative changes. Old bilateral L5 spondylolysis. Minimal scoliosis. Reproductive organs: Within normal limits. IMPRESSION: No acute posttraumatic abnormality in the chest, abdomen or pelvis.. Small bilateral pleural effusions. Postsurgical changes of the left chest. Left-sided bladder mass, suspicious for carcinoma. Occlusion of the right common iliac artery and right external iliac artery with reconstitution at the level of the right common femoral artery. Unexpected findings RADIATION DOSE DELIVERED: 1,178.23mGy.cm Total DLP DATA REPOSITORY: All CT scans at this facility are submitted to the National Radiology Data Registry (NRDR) Dose Index Registry (DIR) with the [employer] (ACR). RADIATION OPTIMIZATION: All CT scans at this facility use at least one of these dose optimization te chniques: automated exposure control; mA and/or kV adjustment per patient size (includes targeted exa ms where dose is matched to clinical indication); or iterative reconstruction.
[2023-05-22] MEDS: PROPOFOL 1,000 MG/100 ML BTL 32.4 MG IV ×2 (01:11→03:47)
[2023-05-22] MEDS: levETIRAcetam 500 MG in Normal Saline 100 ML 400 MG IVPB (01:15)
[2023-05-22 01:27] LABS: Bilirubin Negative (Negative); Blood Negative (Negative); Clarity Clear (Clear); Glucose Negative (Negative); Ketones Negative (Negative); Leukocyte Esterase Negative (Negative); Nitrite Negative (Negative)
[2023-05-22] MEDS: levETIRAcetam 1,000 MG in Normal Saline 100 ML 400 MG IVPB (01:33)
[2023-05-22 01:34] LABS: *AMPHETAMINES SCREEN URINE Positive (Negative); *BARBITURATES SCREEN URINE Negative (Negative); *BENZODIAZEPINES SCREEN URINE Positive (Negative); Cannabinoids THC Positive (Negative); Cocaine Screen,Urine Positive (Negative); METHADONE URINE SCREEN Positive (Negative); OPIATES URINE SCREEN Negative (Negative)
[2023-05-22 01:36] LABS: Tricyclic Antidepressants Negative (Negative)
[2023-05-22] MEDS: Sodium Bicarbonate 50 MEQ/50 ML VIAL (01:36)
--- NOTE | 2023-05-22 01:45 | DI.VRAD_ITS ---
PROCEDURE INFORMATION: Exam: XR Chest Exam date and time: 05/22/2023 1:05 AM Age: 52 years old Clinical indication: Device placement; Other: Post-line ventilator TECHNIQUE: Imaging protocol: Radiologic exam of the chest. Views: 1 view. COMPARISON: CR XR CHEST 2V PA LATERAL 08/26/2022 1:04 PM FINDINGS: Tubes, catheters and devices: NG tube tip overlies stomach. Endotracheal tube tip at the thoracic inlet, 8.6 cm above the fernando. Lungs: Unremarkable. No consolidation. Pleural spaces: Unremarkable. No pleural effusion. No pneumothorax. Heart/Mediastinum: Unremarkable. No cardiomegaly. Bones/joints: Unremarkable. IMPRESSION: No acute finding. Dictated and Authenticated by: Steve Mensah MD. Ordering:GIOVANNI Iyer MD
[2023-05-22 01:48] LABS: INR 1.1 (0.9-1.1); PTT Activated 24.7 sec (23.6-32.8); Prothrombin Time 10.9 sec (9.1-11.1)
[2023-05-22] MEDS: Omnipaque 350 MG/ML 100 ML BTL IJ (02:13)
[2023-05-22] MEDS: Normal Saline - Diluent 50 ML VIAL IJ (02:14)
[2023-05-22] MEDS: Normal Saline Flush 10 ML SYR IVP (02:14)
--- NOTE | 2023-05-22 02:23 | DI.VRAD_ITS ---
PROCEDURE INFORMATION: Exam: CT Chest With Contrast; Diagnostic Exam date and time: 05/22/2023 1:44 AM Age: 52 years old Clinical indication: Injury or trauma; Blunt trauma (contusions or hematomas); Injury details: Seizure, fall facial trauma; Additional info: Seizure, fall facial trauma. New seizure known brain mets TECHNIQUE: Imaging protocol: Diagnostic computed tomography of the chest with contrast. Contrast material: OMNI 350; Contrast volume: 100 ml; Contrast route: INTRAVENOUS (IV); COMPARISON: PT PET^SKULL TO MID THIGH (Adult) 08/10/2021 8:[address] chest dated 08/03/2021 FINDINGS: Tubes, catheters and devices: Endotracheal tube tip in the midthoracic trachea. Enteric tube tip within the distal stomach. Lungs: Mild upper lobe predominant centrilobular emphysema. Pleural spaces: Small bilateral pleural effusions with associated atelectasis. Heart: Normal. Coronary arteries: Mild three-vessel coronary artery atherosclerotic disease. Lymph nodes: No pathologically-enlarged lymph nodes. Vasculature: See Coronary arteries finding. Bones/joints: Multilevel thoracic spine degenerative disc space narrowing. Soft tissues: Normal. IMPRESSION: Small bilateral pleural effusions with associated atelectasis. PROCEDURE INFORMATION: Exam: CT Abdomen And Pelvis With Contrast Exam date and time: 05/22/2023 1:44 AM Age: 52 years old Clinical indication: Injury or trauma; Blunt trauma (contusions or hematomas); Injury details: Seizure, fall facial trauma; Additional info: Seizure, fall facial trauma. New seizure known brain mets TECHNIQUE: Imaging protocol: Computed tomography of the abdomen and pelvis with contrast. Contrast material: OMNI 350; Contrast volume: 100 ml; Contrast route: INTRAVENOUS (IV); COMPARISON: PT PET^SKULL TO MID THIGH (Adult) 08/10/2021 8:32 AM FINDINGS: Liver: 3.5 cm slightly heterogeneous peripherally hyperdense lesion within the lateral segment left hepatic lobe, likely hemangioma, unchanged. Gallbladder and bile ducts: Normal. Pancreas: Normal. Spleen: Mild splenomegaly. Adrenal glands: Normal. No mass. Kidneys and ureters: Normal. Stomach and bowel: Moderate amount of stool throughout the colon, compatible with constipation. No obstruction. Appendix: No evidence of appendicitis. Intraperitoneal space: Unremarkable. No free air. No significant fluid collection. Vasculature: Atherosclerotic disease of the abdominal aorta and iliac arteries. Extensive atherosclerotic disease of the iliac arteries, with occlusion of the right common iliac and right external iliac arteries. Reconstitution of the right common femoral artery by collateral arteries. Lymph nodes: Unremarkable. No enlarged lymph nodes. Urinary bladder: Urinary bladder partially decompressed by Magallanes catheter. 2.4 cm slightly hyperattenuating mass within the left posterior urinary bladder, with minimal adjacent wall thickening, possibly carcinoma. Reproductive: Unremarkable as visualized. Bones/joints: Multilevel lumbar spine degenerative disc disease, worst at the L1-L2 and L2-L3 levels. Minimal dextroscoliosis of the lumbar spine. Soft tissues: Normal. IMPRESSION: 1. 2.4 cm slightly hyperattenuating mass within the left posterior urinary bladder, with minimal adjacent wall thickening, possibly carcinoma. Recommend further evaluation. 2. Moderate amount of stool throughout the colon, compatible with constipation. No obstruction. 3. Extensive atherosclerotic disease of the iliac arteries, with occlusion of the right common iliac and right external iliac arteries. Reconstitution of the right common femoral artery by collateral arteries. Dictated and Authenticated by: Remi Escamilla MD. Ordering:GIOVANNI Iyer MD
--- NOTE | 2023-05-22 02:30 | RT.EKG_ITS ---
APPROVED REPORT Exam: Resting ECG Reason for Exam: arythmia Patient Location: E HR:94 bpm ECG Measurements Heart Rate 94 AXIS LA [id number] P [id number] QRSd 109 QRS 85 QT 397 T 73 QTc 498 Conclusion Accelerated junctional rhythm No ST segment or T wave abnormalities to suggest occlusive CT.
--- NOTE | 2023-05-22 02:30 | DI.VRAD_ITS ---
PROCEDURE INFORMATION: Exam: CT Head Without Contrast Exam date and time: 05/22/2023 1:32 AM Age: 52 years old Clinical indication: Injury or trauma; Blunt trauma (contusions or hematomas); Injury details: Seizure, fall facial trauma; Additional info: Seizure, fall facial trauma. New seizure known brain mets TECHNIQUE: Imaging protocol: Computed tomography of the head without contrast. COMPARISON: CT HEAD CERVICAL SPINE WO 08/26/2022 12:45 PM FINDINGS: Brain: Resection cavity is seen in the left occipital lobe at the site of previous surgery with surrounding encephalomalacia evident. Cerebral sulci show bilateral symmetry throughout the remainder of both cerebral hemispheres with no new supratentorial mass or mass effect detected. Brainstem and cerebellum are unremarkable. There is no evidence of acute transcortical infarction or recent intracranial hemorrhage. Cerebral ventricles: Ex vacuo dilatation of the trigone and occipital horn of the left lateral ventricle seen adjacent to the chronic resection cavity. Paranasal sinuses: Scattered sphenoethmoid mucosal densities are evident. Mastoid air cells: Grossly clear bilaterally. Probable cerumen seen in the right external auditory canal. Bones/joints: Left parietal craniotomy defect seen related to previous tumor resection. Soft tissues: Unremarkable. IMPRESSION: Postsurgical changes now evident related to tumor resection in the region of the left occipital lobe. No new intracranial metastases are detected on this noncontrast CT examination. PROCEDURE INFORMATION: Exam: CT Maxillofacial Without Contrast Exam date and time: 05/22/2023 1:32 AM Age: 52 years old Clinical indication: Injury or trauma; Blunt trauma (contusions or hematomas); Injury details: Seizure, fall facial trauma; Additional info: Seizure, fall facial trauma. New seizure known brain mets TECHNIQUE: Imaging protocol: Computed tomography of the face without contrast. COMPARISON: CT HEAD CERVICAL SPINE WO 08/26/2022 12:45 PM FINDINGS: Orbital cavities: Bony margins of the orbits are intact bilaterally with no orbital fractures detected. Both globes are intact and the intraorbital contents are normal in appearance and appear bilaterally symmetric. Bones/joints: Nasal bones, zygomatic arches and right and left vertical and horizontal mandibular rami are all intact. No acute maxillofacial fractures are detected. Paranasal sinuses: Scattered sphenoethmoid mucosal densities are evident. Soft tissues: Unremarkable. IMPRESSION: No acute maxillofacial fractures are detected.. PROCEDURE INFORMATION: Exam: CT Cervical Spine Without Contrast Exam date and time: 05/22/2023 1:32 AM Age: 52 years old Clinical indication: Injury or trauma; Blunt trauma (contusions or hematomas); Injury details: Seizure, fall facial trauma; Additional info: Seizure, fall facial trauma. New seizure known brain mets TECHNIQUE: Imaging protocol: Computed tomography of the cervical spine without contrast. COMPARISON: CT HEAD CERVICAL SPINE WO 08/26/2022 12:45 PM FINDINGS: Bones/joints: There is arthrosis involving the anterior atlantodental interval with loss of joint space and marginal osteophyte formation and the odontoid process is grossly intact. There are mild retrolistheses of C4 upon C5 and C5 upon C6 and there is gross preservation of vertebral body height throughout cervical levels with no vertebral body fractures or other significant subluxations detected. No acute fractures detected involving the posterior elements of the cervical spine. Discs/Spinal canal/Neural foramina: Loss of disc space height with posterior osteocartilaginous ridging is most significant at C5-C6 resulting in canal stenosis and suspected mass-effect upon the ventral cord which could be better evaluated with MRI. Uncovertebral and facet changes produce bilateral foraminal distortions/narrowings at C5-C6 and C6-C7. Soft tissues: Unremarkable. IMPRESSION: Cervical spondylosis with central canal and foraminal narrowing as above. No acute cervical fractures are detected. Dictated and Authenticated by: Timur Patel MD. Ordering:GIOVANNI Iyer MD
[2023-05-22] MEDS: Dexamethasone 10 MG/ML VIAL IVP (02:38)
[2023-05-22 02:46] LABS: BE 4 mmol/L (-2-3); HCO3 29 mmol/L (22-26); pCO2 46 mmHg (35-45); pO2 88 mmHg (80-105); sO2 97 % (95-98); tCO2 25 mmol/L (23-27)
[2023-05-22 02:48] LABS: Site Left Radial
[2023-05-22 02:49] LABS: FIO2 30 %
[2023-05-22 04:01] LABS: Troponin I < 50 ng/L (< or =60)
== END 2023-05-22 06:01 | disposition short-term general hospital (02) ==
PROVIDERS: Emergency Provider Student in an Organized Health Care Education/Training Program; PCP Nurse Practitioner Family
DX: G40.901 Epilepsy, unspecified, not intractable, with status epilepticus (principal); G93.6 Cerebral edema; C34.90 Malignant neoplasm of unspecified part of unspecified bronchus or lung; C79.31 Secondary malignant neoplasm of brain; Z96.0 Presence of urogenital implants; F17.210 Nicotine dependence, cigarettes, uncomplicated; F19.10 Other psychoactive substance abuse, uncomplicated
CPT/HCPCS: 31500; 36415; 74177; 80053; 80307; 82805; 93005; 96365; 96375; 99291; 36600; 70450; 70486; 71045; 71260; 72125; 80320; 81003; 83735; 84443; 84484; 85025; 85610; 85730; 93010; J1100; J1953; J2250; J2704; J3490

== ENCOUNTER 2023-08-09 10:31 | Emergency (ER) | payer MEDICARE, MEDICAID, SELFPAY ==
[2023-08-09] VITALS (45 sets, daily range): BP systolic 93–139; BP diastolic 52–108; PULSE 52–90; RESP 9–25; TEMP 36.4; O2SAT 94
[2023-08-09] MEDS: LORazepam 2 MG/ML VIAL IM (10:41)
[2023-08-09 11:08] LABS: Abs Immature Grans 0.01 10^3/uL (0.0-0.06); Absolute Basophil Count 0.07 10^3/uL (0.0-0.2); Absolute Eosinophil Count 0.43 10^3/uL (0.0-0.7); Absolute Lymphocyte Count 1.58 10^3/uL (1.2-3.4); Absolute Monocyte Count 0.58 10^3/uL (0.1-0.8); Absolute Neutrophil Count 3.68 10^3/uL (1.2-6.7); Basophils % 1.1 %; Eosinophils % 6.8 %; HCT 39.4 % (40.0-50.0); HGB 13.1 g/dL (13.5-17.5); Immature Grans % 0.2 %; Lymphocytes % 24.9 %; MCH 29.8 pg (27.0-33.0); MCHC 33.2 % (32.0-36.0); MCV 90 fL (80-95); MPV 9.5 fL (8.0-11.0); Monocytes % 9.1 %; Neutrophils % 57.9 %; Platelet Count 259 10^3/uL (130-400); RDW 13.2 % (11.8-14.1); WBC 6.35 10^3/uL (4.4-10.8)
[2023-08-09 11:47] LABS: ALT 138 U/L (16-63); AST 41 U/L (15-37); Albumin 3.9 g/dL (3.4-5.0); Alkaline Phosphatase 90 U/L (46-116); Anion Gap 15.4 mmol/L (3-11); BUN 17 mg/dL (7-18); Bilirubin, Total 0.5 mg/dL (0.2-1.0); CO2 23.6 mmol/L (21.0-32.0); CREATININE 0.9 mg/dL (0.70-1.30); Calcium 9.5 mg/dL (8.5-10.1); Chloride 99 mmol/L (98-107); Creatine Kinase 187 U/L (39-308); Estimated GFR 102.12 (mL/min/1.73m2); Glucose 110 mg/dL (74-106); Magnesium 1.9 mg/dL (1.8-2.4); Potassium 4.1 mmol/L (3.5-5.1); Sodium 138 mmol/L (136-145); Total Protein 7.7 g/dL (6.4-8.2)
[2023-08-09 11:50] LABS: ETHANOL BLOOD < 3.0 mg/dL (<10)
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
[2023-08-13 10:41] LABS: Levetiracetam <1.0 mcg/mL
== END 2023-08-09 15:05 | disposition home or self-care (01) ==
PROVIDERS: Emergency Provider Emergency Medicine
DX: R56.9 Unspecified convulsions; Z86.011 Personal history of benign neoplasm of the brain; Z98.890 Other specified postprocedural states
CPT/HCPCS: 36415; 36416; 80053; 82550; 82962; 96365; 96372; 99284; 80177; 80320; 83735; 85025; 99283; J1953; J2060

== ENCOUNTER 2023-10-18 07:37 | Emergency (ER) | payer MEDICARE, MEDICAID, SELFPAY ==
[2023-10-18] VITALS (132 sets, daily range): BP systolic 100–135; BP diastolic 63–82; PULSE 54–82; RESP 8–24; TEMP 36.6; O2SAT 95–100
--- NOTE | 2023-10-18 07:45 | RT.EKG_ITS ---
APPROVED REPORT Exam: Resting ECG Reason for Exam: Stroke Patient Location: E HR:69 bpm ECG Measurements Heart Rate 69 AXIS NC 143 P 68 QRSd 106 QRS 41 QT 438 T 84 QTc 468 Conclusion Sinus rhythm...normal P axis, V-rate 60- 99 Left atrial enlargement...P, P'>60mS, <-0.15mV V1 Normal sinus rhythm at a rate of 69 with interventricular conduction delay and a QRS of 106 ms. Norm al axis. NC and QTc within normal limits. Biphasic T wave in V2. T wave flattening in aVL. No ST segment abnormalities. Compared to prior dated earlier this year biphasic T wave in V2 and T wave fl attening in aVL are persistent.
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
[2023-10-18 08:03] LABS: Abs Immature Grans 0.02 10^3/uL (0.0-0.06); Absolute Basophil Count 0.08 10^3/uL (0.0-0.2); Absolute Eosinophil Count 0.49 10^3/uL (0.0-0.7); Absolute Monocyte Count 0.74 10^3/uL (0.1-0.8); Basophils % 1.3 %; Eosinophils % 7.7 %; HCT 37.4 % (40.0-50.0); HGB 12.6 g/dL (13.5-17.5); Immature Grans % 0.3 %; Lymphocytes % 31.6 %; MCH 30.1 pg (27.0-33.0); MCHC 33.7 % (32.0-36.0); MCV 89 fL (80-95); MPV 8.9 fL (8.0-11.0); Monocytes % 11.7 %; Neutrophils % 47.4 %; Platelet Count 281 10^3/uL (130-400); RBC 4.19 10^6/uL (4.36-5.78); RDW 13.5 % (11.8-14.1); RDW-SD 44.2 fL; WBC 6.33 10^3/uL (4.4-10.8)
--- NOTE | 2023-10-18 08:14 | DI.RAD_ITS ---
Exam(s) XR PORTABLE CHEST AP EXAM: XR PORTABLE CHEST AP CLINICAL HISTORY: Numbness TECHNIQUE: 2D digital imaging was performed. COMPARISON: CT CT CHEST/ABD/PEL W from 05/22/2023 CR,XR XR PORTABLE CHEST AP from 05/22/2023 FINDINGS: Exam limited by leads overlying the chest. Leads overlie the region of the left diaphragm. LUNGS: Mild scarring versus atelectasis at the left lung base, otherwise clear. Hyperinflation. No pleural abnormality seen. HEART: Normal size. AORTA: Normal diameter. BONES: Unremarkable for age. Soft tissues: Unremarkable. IMPRESSION: No acute findings. DATA REPOSITORY: RADIATION DOSE DELIVERED:
--- NOTE | 2023-10-18 08:14 | DI.CT_ITS ---
Exam(s) CT HEAD - STROKE PROTOCOL EXAM: CT HEAD - STROKE PROTOCOL CLINICAL HISTORY: Numbness brain tumor. TECHNIQUE: Imaging Protocol: Axial computed tomography images with coronal and sagittal reformatted images were created and reviewed COMPARISON: CT CT HEAD CERV SPINE FACIAL WO from 05/22/2023 FINDINGS: Ventricles and Extra axial spaces: Stable dilatation of the posterior horn of the left lateral ventri joyce Hemorrhage: None. Cerebral parenchyma: No evidence of acute infarct or mass. Stable area of encephalomalacia in the lef t occipital parietal region. Stable appearance from prior. Midline shift: None. Brainstem/Cerebellum: Normal. Calvarium: Left parietal craniotomy defect. Visualized Paranasal sinuses:Clear. Mastoids: Clear. Soft Tissues: Unremarkable. ORBITS: Unremarkable. PITUITARY: Not enlarged. IMPRESSION: Stable area of encephalomalacia in the left occipital parietal region. No acute intracranial process . RADIATION DOSE DELIVERED: Total DLP DATA REPOSITORY: All CT scans at this facility are submitted to the National Radiology Data Registry (NRDR) Dose Index Registry (DIR) with the [employer] (ACR). RADIATION OPTIMIZATION: All CT scans at this facility use at least one of these dose optimization te chniques: automated exposure control; mA and/or kV adjustment per patient size (includes targeted exa ms where dose is matched to clinical indication); or iterative reconstruction.
[2023-10-18] MEDS: levETIRAcetam 2,000 MG in Normal Saline 100 ML 400 MG IVPB (08:23)
[2023-10-18 08:33] LABS: BUN 19 mg/dL (7-18); CREATININE 0.8 mg/dL (0.70-1.30); Calcium 9.5 mg/dL (8.5-10.1); Chloride 102 mmol/L (98-107); Estimated GFR 105.82 (mL/min/1.73m2); Glucose 132 mg/dL (74-106); Magnesium 1.9 mg/dL (1.8-2.4); Potassium 3.9 mmol/L (3.5-5.1); Sodium 137 mmol/L (136-145); TSH (W/Ref FT4) 1.76 uIU/mL (0.36-3.74); Troponin I < 50 ng/L (< or =60)
[2023-10-18 08:34] LABS: ETHANOL BLOOD < 3.0 mg/dL (<10)
--- NOTE | 2023-10-18 08:48 | DI.VRAD_ITS ---
PROCEDURE INFORMATION: Exam: CT Head Without Contrast Exam date and time: 10/18/2023 8:08 AM Age: 52 years old Clinical indication: Stroke-like symptoms; Other: Numbness brain tumor TECHNIQUE: Imaging protocol: Computed tomography of the head without contrast. Other technique: STROKE PROTOCOL was implemented. COMPARISON: CT HEAD CERV SPINE FACIAL WO 05/22/2023 1:32 AM FINDINGS: Brain: Normal. No hemorrhage. Unremarkable white matter. No mass effect. Cerebral ventricles: Postop resection change in the left occipital region with encephalomalacia change and ex vacuo dilatation of the left occipital horn. Paranasal sinuses: Visualized sinuses are unremarkable. No fluid levels. Mastoid air cells: Visualized mastoid air cells are well aerated. Bones: Postop left parietal craniotomy surgical change Soft tissues: Unremarkable. Other findings: No significant interval change in size or appearance prior exam. No new lesions are appreciated. IMPRESSION: Postop resection changes of the left occipital region with encephalomalacia change and ex vacuo dilatation of the left occipital horn. No change in size or appearance when compared to the prior examination. No new lesions are appreciated ASSESSMENT: ASPECTS (Loly Stroke Program Early CT Score) is 10. Dictated and Authenticated by: Lindy Gay MD. Ordering:NATALIE Briseno MD
--- NOTE | 2023-10-18 08:49 | DI.VRAD_ITS ---
PROCEDURE INFORMATION: Exam: XR Chest Exam date and time: 10/18/2023 8:13 AM Age: 52 years old Clinical indication: Other: Numbess TECHNIQUE: Imaging protocol: Radiologic exam of the chest. Views: 1 view. COMPARISON: CT CHEST/ABD/PEL W 05/22/2023 1:44 AM FINDINGS: Lungs: Hyperinflated lungs. No infiltrate. Atelectasis versus scar tissue left lung base Pleural spaces: Unremarkable. No pleural effusion. No pneumothorax. Heart/Mediastinum: Unremarkable. No cardiomegaly. Bones/joints: Unremarkable. IMPRESSION: Hyperinflated lungs. Atelectasis versus scar tissue in the left lung base Dictated and Authenticated by: Lindy Gay MD. Ordering:NATALIE Briseno MD
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
[2023-10-18 16:32] LABS: Bilirubin Negative (Negative); Blood Negative (Negative); Clarity Clear (Clear); Glucose Negative (Negative); Ketones Negative (Negative); Leukocyte Esterase Negative (Negative); Nitrite Negative (Negative); Specific Gravity >= 1.030 (1.005-1.025); Urobilinogen 0.2 mg/dL (Up to 0.2)
== END 2023-10-18 17:46 | disposition short-term general hospital (02) ==
PROVIDERS: Emergency Provider Emergency Medicine
DX: R33.9 Retention of urine, unspecified (principal); R29.898 Other symptoms and signs involving the musculoskeletal system; R20.2 Paresthesia of skin; C78.00 Secondary malignant neoplasm of unspecified lung; N32.89 Other specified disorders of bladder; Z85.841 Personal history of malignant neoplasm of brain
CPT/HCPCS: 36415; 36416; 51702; 51798; 80048; 82962; 93005; 96365; 99285; 70450; 71045; 80320; 81003; 83735; 84443; 84484; 85025; 93010; J1953

== ENCOUNTER 2024-02-04 01:31 | Outpatient (CLI) | payer MEDICARE, MEDICAID, SELFPAY ==
[2024-02-04 10:20] LABS: Abs Immature Grans 0.02 10^3/uL (0.0-0.06); Absolute Basophil Count 0.07 10^3/uL (0.0-0.2); Absolute Eosinophil Count 0.44 10^3/uL (0.0-0.7); Absolute Lymphocyte Count 1.45 10^3/uL (1.2-3.4); Absolute Neutrophil Count 3.52 10^3/uL (1.2-6.7); Basophils % 1.1 %; Eosinophils % 7.1 %; HCT 37.8 % (40.0-50.0); HGB 12.5 g/dL (13.5-17.5); Immature Grans % 0.3 %; Lymphocytes % 23.4 %; MCH 29.1 pg (27.0-33.0); MCHC 33.1 % (32.0-36.0); MCV 88 fL (80-95); MPV 8.8 fL (8.0-11.0); Monocytes % 11.3 %; Neutrophils % 56.8 %; Platelet Count 304 10^3/uL (130-400); RDW 13.7 % (11.8-14.1); RDW-SD 44.2 fL
[2024-02-04 10:33] LABS: ALT 29 U/L (16-63); AST 25 U/L (15-37); Albumin 3.7 g/dL (3.4-5.0); Alkaline Phosphatase 82 U/L (46-116); Anion Gap 5.6 mmol/L (3-11); BUN 15 mg/dL (7-18); Bilirubin, Total 0.36 mg/dL (0.2-1.0); CO2 31.4 mmol/L (21.0-32.0); CREATININE 0.9 mg/dL (0.70-1.30); Calcium 9.6 mg/dL (8.5-10.1); Chloride 104 mmol/L (98-107); Estimated GFR 101.49 (mL/min/1.73m2); Glucose 109 mg/dL (74-106); Magnesium 2.1 mg/dL (1.8-2.4); Sodium 141 mmol/L (136-145); Total Protein 7.6 g/dL (6.4-8.2)
== END 2024-02-04 01:32 | disposition home or self-care (01) ==
PROVIDERS: PCP Nurse Practitioner Family; Visit Provider Nurse Practitioner Family
DX: C34.12 Malignant neoplasm of upper lobe, left bronchus or lung (principal)
CPT/HCPCS: 36415; 80053; 83735; 85025

== ENCOUNTER 2024-02-24 03:11 | Outpatient (CLI) | payer MEDICARE, MEDICAID, SELFPAY ==
[2024-02-24 09:29] LABS: Abs Immature Grans 0.04 10^3/uL (0.0-0.06); Absolute Basophil Count 0.01 10^3/uL (0.0-0.2); Absolute Eosinophil Count 0.07 10^3/uL (0.0-0.7); Absolute Lymphocyte Count 1.13 10^3/uL (1.2-3.4); Absolute Monocyte Count 0.97 10^3/uL (0.1-0.8); Absolute Neutrophil Count 2.54 10^3/uL (1.2-6.7); Basophils % 0.2 %; Eosinophils % 1.5 %; HCT 33.7 % (40.0-50.0); HGB 11.1 g/dL (13.5-17.5); Immature Grans % 0.8 %; Lymphocytes % 23.7 %; MCH 28.5 pg (27.0-33.0); MCHC 32.9 % (32.0-36.0); MCV 87 fL (80-95); MPV 8.4 fL (8.0-11.0); Monocytes % 20.4 %; Neutrophils % 53.4 %; Platelet Count 507 10^3/uL (130-400); RBC 3.89 10^6/uL (4.36-5.78); RDW 14.2 % (11.8-14.1); RDW-SD 42.3 fL; WBC 4.76 10^3/uL (4.4-10.8)
[2024-02-24 09:47] LABS: ALT 40 U/L (16-63); AST 40 U/L (15-37); Albumin 3.8 g/dL (3.4-5.0); Alkaline Phosphatase 91 U/L (46-116); BUN 16 mg/dL (7-18); Bilirubin, Total 0.29 mg/dL (0.2-1.0); CREATININE 0.9 mg/dL (0.70-1.30); Calcium 9.6 mg/dL (8.5-10.1); Chloride 102 mmol/L (98-107); Estimated GFR 101.49 (mL/min/1.73m2); Glucose 133 mg/dL (74-106); Potassium 4.1 mmol/L (3.5-5.1); Sodium 139 mmol/L (136-145); Total Protein 7.8 g/dL (6.4-8.2)
== END 2024-02-24 03:12 | disposition home or self-care (01) ==
PROVIDERS: PCP Nurse Practitioner Family; Visit Provider Nurse Practitioner Family
DX: C34.12 Malignant neoplasm of upper lobe, left bronchus or lung (principal)
CPT/HCPCS: 36415; 80053; 83735; 85025

== ENCOUNTER 2024-03-11 02:15 | Outpatient (CLI) | payer MEDICARE, MEDICAID, SELFPAY ==
--- NOTE | 2024-03-11 | DI.CT_ITS ---
Exam(s) CT CHEST W EXAM: CT CHEST W CLINICAL HISTORY: Stage IV NSCLC, DEEPAK, C34.12, assess treatment response TECHNIQUE: Imaging Protocol: Axial computed tomography images with coronal and sagittal reformatted images were created and reviewed. Computer aided detection (CAD) was utilized. CONTRAST MATERIAL: Intravenous: Omnipaque 350Contrast volume:70 mL. COMPARISON: CT CT ABDOMEN/ PELVIS CTA from 10/16/[address] CHEST WO CONTRAST (GENERIC) from 06/11/[address] CHEST W CONTRAST from 08/03/[address] CHEST/ABD/PEL W from 05/22/2023 CR,XR XR PORTABLE CHEST AP from 10/18/2023 FINDINGS: Tracheobronchial tree: Patent where visualized. No evidence of bronchiectasis. Pulmonary parenchyma: Left upper lobectomy. Mild centrilobular emphysematous changes are present. N o new pulmonary nodules are seen. No pulmonary infiltrates are present. Mediastinum and Bee: No dominant adenopathy or fluid collection. The esophagus is unremarkable. Thyroid gland: Unremarkable. Pleura: No effusion or pneumothorax. Heart: The heart is not dilated. Mild coronary artery calcification. No pericardial effusion. Aorta: Thoracic aorta non-dilated. No evidence of dissection. Atherosclerotic calcification is prese nt. Pulmonary arteries: Due to the timing of the bolus, there is suboptimal opacification of the pulmonar y arteries for evaluation of pulmonary emboli. No large central pulmonary embolus is present. Upper abdomen: There are stable peripherally enhancing masses in the liver, 1 in the left lobe and 1 of the right lobe. They are most consistent with hepatic hemangiomas. There is stable nodularity o f the left adrenal gland which may represent an adenoma. Lymph nodes: Within normal limits. Bones: Within normal limits for the patient's age. No aggressive osseous lesions. Soft tissues: There is a stable left retroareolar nodule which may represent gynecomastia. IMPRESSION: 1. No change in appearance of the CT scan of the chest compared to the prior examination. 2. No acute pulmonary process. RADIATION DOSE DELIVERED: 102.52mGy.cm Total DLP DATA REPOSITORY: All CT scans at this facility are submitted to the National Radiology Data Registry (NRDR) Dose Index Registry (DIR) with the [employer] (ACR). RADIATION OPTIMIZATION: All CT scans at this facility use at least one of these dose optimization te chniques: automated exposure control; mA and/or kV adjustment per patient size (includes targeted exa ms where dose is matched to clinical indication); or iterative reconstruction.
[2024-03-11] MEDS: Normal Saline - Diluent 50 ML VIAL IJ (15:37)
[2024-03-11] MEDS: Omnipaque 350 MG/ML 100 ML BTL IJ (15:38)
== END 2024-03-11 02:35 ==
LOC: DI 02:16
PROVIDERS: PCP Nurse Practitioner Family; Visit Provider Nurse Practitioner Family
DX: C34.12 Malignant neoplasm of upper lobe, left bronchus or lung (principal)
CPT/HCPCS: 71260; J3490

== ENCOUNTER 2024-03-15 02:45 | Outpatient (CLI) | payer MEDICARE, MEDICAID, SELFPAY ==
[2024-03-15 11:40] LABS: Abs Immature Grans 0.02 10^3/uL (0.0-0.06); Absolute Basophil Count 0.03 10^3/uL (0.0-0.2); Absolute Eosinophil Count 0.19 10^3/uL (0.0-0.7); Absolute Lymphocyte Count 1.19 10^3/uL (1.2-3.4); Absolute Monocyte Count 0.93 10^3/uL (0.1-0.8); Basophils % 0.8 %; Eosinophils % 5.2 %; HCT 30.3 % (40.0-50.0); HGB 10.4 g/dL (13.5-17.5); Immature Grans % 0.5 %; Lymphocytes % 32.5 %; MCH 29.3 pg (27.0-33.0); MCHC 34.3 % (32.0-36.0); MCV 85 fL (80-95); MPV 8.7 fL (8.0-11.0); Monocytes % 25.4 %; Neutrophils % 35.6 %; Platelet Count 351 10^3/uL (130-400); RBC 3.55 10^6/uL (4.36-5.78); RDW 16.1 % (11.8-14.1); WBC 3.66 10^3/uL (4.4-10.8)
[2024-03-15 12:01] LABS: ALT 40 U/L (16-63); AST 32 U/L (15-37); Albumin 3.4 g/dL (3.4-5.0); Alkaline Phosphatase 87 U/L (46-116); Anion Gap 7.8 mmol/L (3-11); BUN 10 mg/dL (7-18); CO2 29.2 mmol/L (21.0-32.0); CREATININE 0.9 mg/dL (0.70-1.30); Calcium 9.3 mg/dL (8.5-10.1); Chloride 104 mmol/L (98-107); Estimated GFR 101.49 (mL/min/1.73m2); FREE T4 1.02 ng/dL (0.76-1.46); Glucose 125 mg/dL (74-106); Magnesium 1.8 mg/dL (1.8-2.4); Potassium 3.9 mmol/L (3.5-5.1); Sodium 141 mmol/L (136-145); TSH 3.86 uIU/mL (0.36-3.74); Total Protein 7.2 g/dL (6.4-8.2)
== END 2024-03-15 02:46 | disposition home or self-care (01) ==
LOC: LBO 02:45
PROVIDERS: PCP Nurse Practitioner Family; Visit Provider Internal Medicine Medical Oncology
DX: Z79.899 Other long term (current) drug therapy (principal); C34.12 Malignant neoplasm of upper lobe, left bronchus or lung; C72.0 Malignant neoplasm of spinal cord
CPT/HCPCS: 36415; 80053; 83735; 84439; 84443; 85025

== ENCOUNTER 2024-04-05 02:37 | Outpatient (CLI) | payer MEDICARE, MEDICAID, SELFPAY ==
[2024-04-05 10:37] LABS: Abs Immature Grans 0.09 10^3/uL (0.0-0.06); Absolute Basophil Count 0.04 10^3/uL (0.0-0.2); Absolute Eosinophil Count 0.38 10^3/uL (0.0-0.7); Absolute Lymphocyte Count 2.14 10^3/uL (1.2-3.4); Absolute Monocyte Count 1.31 10^3/uL (0.1-0.8); Absolute Neutrophil Count 1.96 10^3/uL (1.2-6.7); Basophils % 0.7 %; Eosinophils % 6.4 %; HCT 30.2 % (40.0-50.0); HGB 10.3 g/dL (13.5-17.5); Immature Grans % 1.5 %; Lymphocytes % 36.1 %; MCH 29.9 pg (27.0-33.0); MCHC 34.1 % (32.0-36.0); MCV 88 fL (80-95); MPV 8.9 fL (8.0-11.0); Monocytes % 22.1 %; Neutrophils % 33.2 %; Platelet Count 338 10^3/uL (130-400); RBC 3.44 10^6/uL (4.36-5.78); RDW 19.4 % (11.8-14.1); RDW-SD 58.1 fL; WBC 5.92 10^3/uL (4.4-10.8)
[2024-04-05 11:06] LABS: ALT 43 U/L (16-63); AST 32 U/L (15-37); Albumin 3.4 g/dL (3.4-5.0); Alkaline Phosphatase 90 U/L (46-116); Anion Gap 10.5 mmol/L (3-11); BUN 10 mg/dL (7-18); Bilirubin, Total 0.22 mg/dL (0.2-1.0); CO2 28.5 mmol/L (21.0-32.0); CREATININE 0.8 mg/dL (0.70-1.30); Calcium 8.8 mg/dL (8.5-10.1); Chloride 103 mmol/L (98-107); Estimated GFR 105.17 (mL/min/1.73m2); Glucose 104 mg/dL (74-106); Magnesium 1.8 mg/dL (1.8-2.4); Potassium 4.4 mmol/L (3.5-5.1); Sodium 142 mmol/L (136-145); TSH 3.45 uIU/mL (0.36-3.74); Total Protein 7.2 g/dL (6.4-8.2)
== END 2024-04-05 02:38 | disposition home or self-care (01) ==
LOC: LBO 02:38
PROVIDERS: PCP Nurse Practitioner Family; Visit Provider Internal Medicine Medical Oncology
DX: Z79.899 Other long term (current) drug therapy (principal); C34.12 Malignant neoplasm of upper lobe, left bronchus or lung; C72.0 Malignant neoplasm of spinal cord
CPT/HCPCS: 36415; 80053; 83735; 84439; 84443; 85025

== ENCOUNTER 2024-06-07 14:51 | Emergency (ER) | payer MEDICARE, MEDICAID, SELFPAY ==
[2024-06-07 14:59] VITALS: BP 130/79; PULSE 103; RESP 15; TEMP 36.3; O2SAT 96
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
[2024-06-07 15:33] LABS: Absolute Basophil Count 0.08 10^3/uL (0.0-0.2); Absolute Lymphocyte Count 1.49 10^3/uL (1.2-3.4); Absolute Monocyte Count 0.49 10^3/uL (0.1-0.8); Absolute Neutrophil Count 4.26 10^3/uL (1.2-6.7); Basophils % 1.2 %; Eosinophils % 4.5 %; HCT 32.6 % (40.0-50.0); HGB 10.9 g/dL (13.5-17.5); Immature Grans % 1.5 %; Lymphocytes % 22.2 %; MCHC 33.4 % (32.0-36.0); MCV 93 fL (80-95); MPV 8.9 fL (8.0-11.0); Monocytes % 7.3 %; Neutrophils % 63.3 %; Platelet Count 567 10^3/uL (130-400); RBC 3.52 10^6/uL (4.36-5.78); RDW 13.7 % (11.8-14.1); RDW-SD 46.4 fL; WBC 6.72 10^3/uL (4.4-10.8)
[2024-06-07 15:44] LABS: ESR 78 mm/hr (0-20)
--- NOTE | 2024-06-07 16:07 | DI.RAD_ITS ---
Exam(s) XR ANKLE RT COMPLETE EXAM: XR ANKLE RT COMPLETE CLINICAL HISTORY: Eval osteo medial malleolus. TECHNIQUE: 2D digital imaging was performed. Three views. COMPARISON: No exams were available for comparison FINDINGS: BONES: No acute fracture is present. No bony destructive lesion is seen. JOINTS: The ankle mortise is normally aligned. Ankle joint space is maintained. SOFT TISSUE: Swelling and large soft tissue wound seen at the medial malleolus. No foreign body. IMPRESSION: Large soft tissue wound. DATA REPOSITORY: RADIATION DOSE DELIVERED:
[2024-06-07 16:08] LABS: ALT 79 U/L (16-63); AST 39 U/L (15-37); Alkaline Phosphatase 82 U/L (46-116); Anion Gap 12.4 mmol/L (3-11); BUN 19 mg/dL (7-18); Bilirubin, Total 0.23 mg/dL (0.2-1.0); CO2 24.6 mmol/L (21.0-32.0); CREATININE 0.9 mg/dL (0.70-1.30); Calcium 9.8 mg/dL (8.5-10.1); Chloride 101 mmol/L (98-107); Estimated GFR 101.49 (mL/min/1.73m2); Glucose 160 mg/dL (74-106); Potassium 4.3 mmol/L (3.5-5.1); Sodium 138 mmol/L (136-145); Total Protein 7.8 g/dL (6.4-8.2)
[2024-06-07 17:00] LABS: C-Reactive Protein 6.21 mg/dL (<or=0.5)
[2024-06-07] MEDS: Acetaminophen 500 MG TAB 1000 MG PO (17:26)
[2024-06-07] MEDS: Cephalexin 500 MG CAP, 4 CAPS/BTL PO (17:26)
[2024-06-07] MEDS: Ibuprofen 600 MG TAB PO (17:27)
[2024-06-07] MEDS: Sulfameth/Trimeth DS, 2 TABS/BTL 1 TAB PO (17:27)
== END 2024-06-07 17:28 | disposition home or self-care (01) ==
PROVIDERS: Emergency Provider Emergency Medicine; PCP Nurse Practitioner Family
DX: L03.115 Cellulitis of right lower limb (principal); L02.415 Cutaneous abscess of right lower limb
CPT/HCPCS: 36415; 80053; 85652; 87040; 99284; 73610; 83735; 85025; 86140

== ENCOUNTER 2024-07-08 16:12 | Observation (INO) | payer MEDICARE, MEDICAID, SELFPAY ==
[2024-07-08] VITALS (10 sets, daily range): BP systolic 107–150; BP diastolic 73–92; PULSE 77–94; RESP 11–22; TEMP 35.1–37.1; O2SAT 98–100
--- NOTE | 2024-07-08 16:00 | RT.EKG_ITS ---
APPROVED REPORT Exam: Resting ECG Reason for Exam: Weakness Patient Location: E HR:82 bpm ECG Measurements Heart Rate 82 AXIS MI 140 P 78 QRSd 102 QRS 62 QT 382 T 65 QTc 448 Conclusion Sinus rhythm...normal P axis, V-rate 60- 99 Probable left atrial enlargement...P >50mS, <-0.10mV V1
--- NOTE | 2024-07-08 16:30 | DI.CT_ITS ---
Exam(s) CT HEAD CERVICAL SPINE WO EXAM: CT HEAD CERVICAL SPINE WO CLINICAL HISTORY: Falls, Weakness. TECHNIQUE: Imaging Protocol: Axial computed tomography images with coronal and sagittal reformatted images were created and reviewed COMPARISON: CT CT HEAD - STROKE PROTOCOL from 10/18/2023 FINDINGS: BRAIN: Again noted is left parietal craniotomy. There are no skull fractures nor fluid in the visualized paranasal sinuses. Previously described area of encephalomalacia in the left occipital parietal region with mild ex vacu o dilatation of the atrium of the left lateral ventricle is unchanged. There is no evidence of intracranial hemorrhage, new mass effect nor shift of midline structures. Th ere are no extra-axial fluid collections. Ventricular size is unchanged. CERVICAL SPINE: There is mild reversal of the normal curvature. There is no evidence of acute fracture nor listhesis. No offset of the spinal laminar line. No sign ificant prevertebral soft tissue swelling. There is chronic disc space narrowing at C5-6 and anterior osteophytes at this level. Milder narrowi ng also noted at C4-5 and C6-7 levels, also with anterior osseous lipping at these levels. There are bilateral Luschka joint osteophytes at C5-6 level. There are no significant degenerative changes in the facet joints. There is no significant facet joint malalignment. No significant osseous lesions evident. IMPRESSION: No acute intracranial findings on this noninfused CT scan of the brain.Again noted is evidence of pre vious left X epidural parietal encephalomalacia with overlying craniotomy. No new intracranial findi ngs. No evidence of cervical spine fracture, malalignment, nor acute compromise of the cervical spinal can al. Multilevel chronic degenerative disc disease noted. RADIATION DOSE DELIVERED: 1,393.77mGy.cm Total DLP DATA REPOSITORY: All CT scans at this facility are submitted to the National Radiology Data Registry (NRDR) Dose Index Registry (DIR) with the [employer] ([employer]). RADIATION OPTIMIZATION: All CT scans at this facility use at least one of these dose optimization te chniques: automated exposure control; mA and/or kV adjustment per patient size (includes targeted exa ms where dose is matched to clinical indication); or iterative reconstruction.
--- NOTE | 2024-07-08 16:30 | DI.CT_ITS ---
Exam(s) CT LOWER EXTREMITY RT WO EXAM: CT LOWER EXTREMITY RT WO CLINICAL HISTORY: Nonhealing wound medial malleolus. TECHNIQUE: Imaging Protocol: Axial computed tomography images with coronal and sagittal reformatted images were created and reviewed. CONTRAST MATERIAL: Intravenous: None COMPARISON: CR XR ANKLE RT COMPLETE from 06/07/2024 FINDINGS: Images are severely degraded by motion artifact SOFT TISSUES: There is prominent ulcer over the medial aspect of the ankle. There is edema over the medial aspect o f the ankle at and around this region. OSSEOUS: No evidence of fracture nor widening the ankle mortise. Talar dome unremarkable. There is no CT evide nce of obvious osteomyelitis in the medial malleolus subjacent to the skin ulcer. Other bones of the ankle appear intact. IMPRESSION: Medial skin ulcer. Subjacent subcutaneous edema. No CT evidence of osteomyelitis. No fractures. Acquired called by myself to ER provider 07/08/2024 at 6:22 p.m. RADIATION DOSE DELIVERED: 228.75mGy.cm Total DLP DATA REPOSITORY: All CT scans at this facility are submitted to the National Radiology Data Registry (NRDR) Dose Index Registry (DIR) with the [employer] ([employer]). RADIATION OPTIMIZATION: All CT scans at this facility use at least one of these dose optimization te chniques: automated exposure control; mA and/or kV adjustment per patient size (includes targeted exa ms where dose is matched to clinical indication); or iterative reconstruction.
--- NOTE | 2024-07-08 16:30 | DI.CT_ITS ---
Exam(s) CT THORACIC LUMBAR SPINE WO EXAM: CT THORACIC LUMBAR SPINE WO CLINICAL HISTORY: Falls, weakness. TECHNIQUE: Imaging Protocol: Axial computed tomography images with coronal and sagittal reformatted images were created and reviewed. CONTRAST MATERIAL: Intravenous: None COMPARISON: No exams were available for comparison FINDINGS: THORACIC SPINAL COLUMN: No evidence of acute fracture or listhesis. Mild height loss of superior end plate of T9 appears chronic. No osseous lesions. Facet joints unremarkable without malalignment. N o acute compromise of the thoracic spinal canal. LUMBOSACRAL SPINAL COLUMN: No evidence of acute lumbar vertebral nor sacral fracture. Sacroiliac ismael nts appear unremarkable. There bilateral pars defects at L5 noted, not associated with anterolisthesis of L5 upon S1 and there is normal disc height at this level. There is advanced disc space narrowing at L1-2 and L2-3 levels with vacuum phenomena seen within the se severely diminished disc spaces. Disc spaces below this level exhibit normal height. Is annular bulging noted at L1-2 level as well as L2-3 level. Central canal dimensions are lower normal at thes e levels. There is no significant canal stenosis at the other levels below this. No scoliosis. No osseous lesions. IMPRESSION: Findings as above but no acute fractures in the thoracic and lumbosacral spinal columns. Bilateral pars defects are noted at L5 level, not associated with listhesis. Findings of all of this patient's CT scans were called by myself to ER provider 07/08/2024 at 6:35 p. m. RADIATION DOSE DELIVERED: 2,644.87mGy.cm Total DLP DATA REPOSITORY: All CT scans at this facility are submitted to the National Radiology Data Registry (NRDR) Dose Index Registry (DIR) with the [employer] (ACR). RADIATION OPTIMIZATION: All CT scans at this facility use at least one of these dose optimization te chniques: automated exposure control; mA and/or kV adjustment per patient size (includes targeted exa ms where dose is matched to clinical indication); or iterative reconstruction.
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
[2024-07-08 17:08] LABS: Lactate 1.5 mmol/L (<or=2.0)
[2024-07-08 17:12] LABS: Abs Immature Grans 0.03 10^3/uL (0.0-0.06); Absolute Basophil Count 0.09 10^3/uL (0.0-0.2); Absolute Eosinophil Count 0.29 10^3/uL (0.0-0.7); Absolute Lymphocyte Count 1.16 10^3/uL (1.2-3.4); Absolute Monocyte Count 0.58 10^3/uL (0.1-0.8); Absolute Neutrophil Count 6.09 10^3/uL (1.2-6.7); Basophils % 1.1 %; Eosinophils % 3.5 %; HCT 38.8 % (40.0-50.0); HGB 12.6 g/dL (13.5-17.5); Immature Grans % 0.4 %; Lymphocytes % 14.1 %; MCHC 32.5 % (32.0-36.0); MCV 92 fL (80-95); MPV 9.9 fL (8.0-11.0); Neutrophils % 73.9 %; Platelet Count 368 10^3/uL (130-400); RDW-SD 47.4 fL; WBC 8.24 10^3/uL (4.4-10.8)
[2024-07-08 17:34] LABS: ALT 40 U/L (16-63); AST 36 U/L (15-37); Albumin 4.1 g/dL (3.4-5.0); Alkaline Phosphatase 77 U/L (46-116); Anion Gap 12.3 mmol/L (3-11); BUN 14 mg/dL (7-18); Bilirubin, Total 0.3 mg/dL (0.2-1.0); CO2 28.7 mmol/L (21.0-32.0); CREATININE 0.8 mg/dL (0.70-1.30); Calcium 9.8 mg/dL (8.5-10.1); Chloride 106 mmol/L (98-107); ETHANOL BLOOD < 3.0 mg/dL (<10); Estimated GFR 105.17 (mL/min/1.73m2); Glucose 117 mg/dL (74-106); Potassium 3.5 mmol/L (3.5-5.1); Sodium 147 mmol/L (136-145); Total Protein 8.7 g/dL (6.4-8.2); Troponin I 12 ng/L (<or=76)
[2024-07-08 18:43] LABS: Troponin I 11 ng/L (<or=76)
[2024-07-08 18:53] LABS: Bilirubin Negative (Negative); Blood Negative (Negative); Clarity Clear (Clear); Glucose Negative (Negative); Ketones Negative (Negative); Leukocyte Esterase Negative (Negative); Nitrite Negative (Negative); Urobilinogen 0.2 mg/dL (Up to 0.2); pH 5.5 (5-8)
[2024-07-08 19:05] LABS: *AMPHETAMINES SCREEN URINE Positive (Negative); *BARBITURATES SCREEN URINE Negative (Negative); *BENZODIAZEPINES SCREEN URINE Negative (Negative); Cannabinoids THC Negative (Negative); Cocaine Screen,Urine Positive (Negative); METHADONE URINE SCREEN Negative (Negative); OPIATES URINE SCREEN Negative (Negative)
[2024-07-08 19:09] LABS: Tricyclic Antidepressants Negative (Negative)
[2024-07-08] MEDS: Acetaminophen 500 MG TAB 1000 MG PO (19:30)
[2024-07-08] MEDS: cefTRIAXone 2 GM/50 ML BAG IVPB (19:30)
[2024-07-08] MEDS: Lidocaine 5% Patch 1 PATCH TP (19:31)
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
[2024-07-08] MEDS: Ketorolac 15 MG/ML VIAL IVP (20:06)
[2024-07-08] MEDS: Nicotine 14 MG/24 HR PATCH TD (20:06)
[2024-07-08 20:50] LABS: ESR 18 mm/hr (0-20)
[2024-07-08 20:56] LABS: C-Reactive Protein 1.41 mg/dL (<or=0.5)
--- NOTE | 2024-07-08 20:58 | W.PC.ACHO ---
Registration Status: Primary Language: Preferred Language: ED Information & Data Chief Complaint GenMedical 07/08/24 17:10 Chief Complaint GenMedical 07/08/24 16:46 Triage Note Patient here with lung ca 07/08/24 16:22 and mets to the brain, spinal cord, spider bite on R medial ankle that he ripped scabbed off accidentally as he was on the floor lying on cushions for two days. Is able to move somewhat, unable to stand. Medical / Surgical History (Last Reviewed 07/08/24 @ 19:59 by Silvia Carrillo NP) PTSD (post-traumatic stress disorder) (Last Reviewed 07/08/24 @ 19:59 by Silvia Carrillo NP) H/O craniotomy Most Recent Vital Signs Temperature 36.6 C 07/08/24 17:09 Temperature Source Oral 07/08/24 17:09 Pulse 78 07/08/24 17:16 Pulse 77 07/08/24 17:16 Respiratory Rate 13 07/08/24 17:16 Respiratory Effort Normal, Non-Labored 07/08/24 17:10 Respiratory Pattern Irregular 07/08/24 17:10 Blood Pressure 107/86 07/08/24 17:16 Blood Pressure Mean 90 07/08/24 17:16 Blood Pressure Position Supine 07/08/24 16:22 Pulse Oximetry 99 07/08/24 17:16 Oxygen Delivery Method Room Air 07/08/24 17:09 Oxygen Flow Rate 0 07/08/24 16:22 Pain Level 8 07/08/24 20:06 Allergies pregabalin (From Lyrica) Adverse Reaction (Verified 07/08/24 16:26) changes in mentation when combined with seroquel tramadol Adverse Reaction (Unverified 07/08/24 16:26) Nausea Precautions Isolation Standard precaution 07/08/24 17:10 IV IV Catheter Type [Right Saline Lock Antecubital] IV Catheter Gauge [Right 20 Antecubital] Diet Orders Category Date Time Status Regular/Normal [DIET] Nutrition 07/09/24 Breakfast Ordered Diagnostics 07/08/24 07/08/24 07/08/24 Range/Units 19:54 18:17 18:16 WBC (4.4-10.8) 10^3/uL RBC (4.36-5.78) 10^6/uL Hgb (13.5-17.5) g/dL Hct (40.0-50.0) % MCV (80-95) fL MCH (27.0-33.0) pg MCHC (32.0-36.0) % RDW (11.8-14.1) % Plt Count (130-400) 10^3/uL MPV (8.0-11.0) fL Immature Gran % % Neutrophils % % Lymphocytes % % Monocytes % % Eosinophils % % Basophils % % Nucleated RBC % (0.0-0.3) % Absolute Neutrophils (1.2-6.7) 10^3/uL Absolute Lymphocytes (1.2-3.4) 10^3/uL Absolute Monocytes (0.1-0.8) 10^3/uL Absolute Eosinophils (0.0-0.7) 10^3/uL Absolute Basophils (0.0-0.2) 10^3/uL ESR Pending VBG Lactate (<or=2.0) mmol/L Sodium (136-145) mmol/L Potassium (3.5-5.1) mmol/L Chloride (98-107) mmol/L Carbon Dioxide (21.0-32.0) mmol/L Anion Gap (3-11) mmol/L BUN (7-18) mg/dL Creatinine (0.70-1.30) mg/dL Est GFR (CKD-EPI 2020) (mL/min/1.73m2) Glucose (74-106) mg/dL Calcium (8.5-10.1) mg/dL Magnesium mg/dL Total Bilirubin (0.2-1.0) mg/dL AST (15-37) U/L ALT (16-63) U/L Alkaline Phosphatase (46-116) U/L Troponin I Cancelled 11 (<or=76) ng/L C-Reactive Protein Pending Total Protein (6.4-8.2) g/dL Albumin (3.4-5.0) g/dL Urine Color Yellow (Yellow) Urine Clarity Clear (Clear) Urine pH 5.5 (5-8) Ur Specific [place] 1.020 (1.005-1.025) Urine Protein Negative (Neg-Trace) mg/dL Urine Ketones Negative (Negative) mg/dL Urine Blood Negative (Negative) Urine Nitrite Negative (Negative) Urine Bilirubin Negative (Negative) Urine Urobilinogen 0.2 (Up to 0.2) mg/dL Ur Leukocyte Esterase Negative (Negative) Urine Glucose Negative (Negative) mg/dL Urine Opiates Screen Negative (Negative) Urine Methadone Screen Negative (Negative) Ur Barbiturates Screen Negative (Negative) Ur Tricyclics Screen Negative (Negative) Ur Amphetamines Screen Positive A (Negative) U Benzodiazepines Scrn Negative (Negative) Urine Cocaine Screen Positive A (Negative) Ur THC Screen Negative (Negative) Ethyl Alcohol (<10) mg/dL 07/08/24 Range/Units 16:54 WBC 8.24 (4.4-10.8) 10^3/uL RBC 4.20 L (4.36-5.78) 10^6/uL Hgb 12.6 L (13.5-17.5) g/dL Hct 38.8 L (40.0-50.0) % MCV 92 (80-95) fL MCH 30.0 (27.0-33.0) pg MCHC 32.5 (32.0-36.0) % RDW 14.0 (11.8-14.1) % Plt Count 368 (130-400) 10^3/uL MPV 9.9 (8.0-11.0) fL Immature Gran % 0.4 % Neutrophils % 73.9 % Lymphocytes % 14.1 % Monocytes % 7.0 % Eosinophils % 3.5 % Basophils % 1.1 % Nucleated RBC % 0.0 (0.0-0.3) % Absolute Neutrophils 6.09 (1.2-6.7) 10^3/uL Absolute Lymphocytes 1.16 L (1.2-3.4) 10^3/uL Absolute Monocytes 0.58 (0.1-0.8) 10^3/uL Absolute Eosinophils 0.29 (0.0-0.7) 10^3/uL Absolute Basophils 0.09 (0.0-0.2) 10^3/uL ESR VBG Lactate 1.5 (<or=2.0) mmol/L Sodium 147 H (136-145) mmol/L Potassium 3.5 (3.5-5.1) mmol/L Chloride 106 (98-107) mmol/L Carbon Dioxide 28.7 (21.0-32.0) mmol/L Anion Gap 12.3 H (3-11) mmol/L BUN 14 (7-18) mg/dL Creatinine 0.8 (0.70-1.30) mg/dL Est GFR (CKD-EPI 2020) 105.17 (mL/min/1.73m2) Glucose 117 H (74-106) mg/dL Calcium 9.8 (8.5-10.1) mg/dL Magnesium 2.0 mg/dL Total Bilirubin 0.3 (0.2-1.0) mg/dL AST 36 (15-37) U/L ALT 40 (16-63) U/L Alkaline Phosphatase 77 (46-116) U/L Troponin I 12 (<or=76) ng/L C-Reactive Protein Total Protein 8.7 H (6.4-8.2) g/dL Albumin 4.1 (3.4-5.0) g/dL Urine Color (Yellow) Urine Clarity (Clear) Urine pH (5-8) Ur Specific [place] (1.005-1.025) Urine Protein (Neg-Trace) mg/dL Urine Ketones (Negative) mg/dL Urine Blood (Negative) Urine Nitrite (Negative) Urine Bilirubin (Negative) Urine Urobilinogen (Up to 0.2) mg/dL Ur Leukocyte Esterase (Negative) Urine Glucose (Negative) mg/dL Urine Opiates Screen (Negative) Urine Methadone Screen (Negative) Ur Barbiturates Screen (Negative) Ur Tricyclics Screen (Negative) Ur Amphetamines Screen (Negative) U Benzodiazepines Scrn (Negative) Urine Cocaine Screen (Negative) Ur THC Screen (Negative) Ethyl Alcohol < 3.0 (<10) mg/dL 07/08/24 16:37 Blood Culture - Pending Blood 07/08/24 16:54 Blood Culture - Pending Blood Intake and Output - 24 Hour Total 07/08/24 16:10 thru 07/08/24 16:22 Weight 73.482 kg Falls Risk Assessment History of Falls Previous History 07/08/24 20:43 Contributing Factors Impairments 07/08/24 20:43 Ambulatory Aids Uses ambulatory device + 07/08/24 20:43 Tubes/Lines With any additional score 07/08/24 20:43 Gait Evaluation W/any additional score 07/08/24 20:43 Cognition No cognitive impairment 07/08/24 20:43 Fall Total Score 88 07/08/24 20:43 Level of Risk Maximum Risk 07/08/24 20:43 Problems (Last Reviewed 07/08/24 @ 19:59 by Silvia Carrillo NP) Seizure disorder (Chronic) Frequent falls (Acute) Non-small cell lung cancer (Acute) Bipolar 1 disorder (Acute) Substance abuse (Acute) Personal history of nicotine dependence (Acute) v v v v v v v v v Sending and/or Receiving Nurses: Please use comment section below to note any information pertinent to the patient hand-off not included above. Information / Comments: Report received from:Rena. Patient is alert and oriented with increased falls at home. Patient is on room air. wound to right ankle that was redressed in the ER. Lido patch left FA. Nicotine patch right upper arm. He is to be transported to room 229. All questions asked, answered.
[2024-07-08] MEDS: Normal Saline 1,000 ML 75 ML IV (22:22)
[2024-07-08] MEDS: Methocarbamol 500 MG TAB PO (22:22)
[2024-07-08] MEDS: LORazepam 0.5 MG TAB PO (22:22)
[2024-07-08] MEDS: oxyCODONE 5 MG TAB PO (22:22)
[2024-07-08] MEDS: Normal Saline Flush 10 ML SYR IVP (22:23)
--- NOTE | 2024-07-09 | DI.MRI_ITS ---
Exam(s) MR CERVICAL SPINE WO EXAM: MR CERVICAL SPINE WO CLINICAL HISTORY: Hx of c-spine metsd/t primary lung CA/LE weakness TECHNIQUE: Multiplanar multisequence MRI of the cervical spine was performed without intravenous con trast. COMPARISON: CT CT HEAD CERVICAL SPINE WO from 07/08/2024 FINDINGS: Contrast was not administered during this examination as the patient was unable to continue imaging. BONES: There osteophytes seen anteriorly at C5-6 and C6-C7. Intervertebral disc spaces are normal. Th ere is reversal of the normal cervical lordosis centered at C4-C5. Endplate degenerative signal duran es are present. CERVICAL CORD: Craniovertebral junction is unremarkable. There is hyperintense signal seen on the T2 weighted images within the spinal cord beginning at the C3-4 disc level length standing inferiorly in to the visualized portions of the thoracic spine. There is soft tissue density within the spinal can al to the left of the spinal cord from C6 through T1 measuring 4.0 cm craniocaudad by 1.2 cm AP. The re is displacement of the spinal cord to the right. SOFT TISSUES: Unremarkable. C2-3: No disc herniation or bulge is identified. No significant central spinal canal or neural forami nal stenosis. C3-4: No disc herniation or bulge is identified. No significant central spinal canal or neural forami nal stenosis C4-5: No disc herniation or bulge is identified. Degenerative changes of the uncovertebral joint on t he right causing mild narrowing of the neural foramen. No significant central spinal canal or left n eural foraminal stenosis. C5-6: Prominence of the osteophyte disc complex. There are degenerative changes seen at the uncovert ebral joints. No significant central spinal canal stenosis. There is mild bilateral neural foramina l stenosis. C6-7: Prominence of the osteophyte disc complex. There is mild narrowing of the central spinal canal . There also degenerative changes of the uncovertebral joints causing mild bilateral neural foramina l narrowing. C7-T1: No disc herniation or bulge is identified. Mild prominence of the right uncovertebral joints c ausing right neural foraminal stenosis. No significant left neural foraminal stenosis. IMPRESSION: 1. There is a 4.0 craniocaudad by 1.2 cm AP mass to the left of the spinal cord from T6 to T1. It ap pears to be intradural and extramedullary. Primary diagnostic concern, given the patient's history, is metastasis. Intramedullary mass cannot be entirely excluded. Postcontrast MRI of the cervical sp ine is recommended for further characterization. 2. Hyperintense signal seen on the T2 weighted images throughout this visualized cervical spine and t horacic spine beginning from C3-C4 disc level. This may be secondary to the compression caused by th e mass. 3. Multilevel degenerative changes in the cervical spine contributing to central spinal canal and gemma ral foraminal stenosis as described above. 4. Findings were discussed with Vicky Lindsay at 6 p.m. on 07/09/2024. 5. The examination was ended prematurely as the patient could not tolerate additional imaging. DATA REPOSITORY:
--- NOTE | 2024-07-09 | DI.MRI_ITS ---
Exam(s) MR BRAIN WO EXAM: MR BRAIN WO CLINICAL HISTORY: Hx of lung cancer with brain metastasis- falls,RLE TECHNIQUE: Multiplanar multisequence MRI of the brain was performed. COMPARISON: CT CT HEAD CERVICAL SPINE WO from 07/08/2024 FINDINGS: The examination is limited due to patient motion artifact. VENTRICLES AND EXTRA AXIAL SPACES: Normal in size and morphology for the patient's age. MIDLINE SHIFT: None. CEREBRAL PARENCHYMA: No focus of restricted diffusion to suggest acute infarct. No space-occupying le lei identified. There is again seen a large area of encephalomalacia involving the left parietal and occipital lobes. HEMORRHAGE: None. BRAINSTEM/CEREBELLUM: Normal. CALVARIUM: Normal. VISUALIZED PARANASAL SINUSES/MASTOIDS:Clear. [place]: Normal flow void. [place]: Unremarkable. OTHER FINDINGS: None. IMPRESSION: 1. Stable area of encephalomalacia in the left parietal occipital region. 2. No acute abnormality. No evidence of an acute infarct. DATA REPOSITORY:
[2024-07-09 00:03] VITALS: BP 129/90; PULSE 98; RESP 20; TEMP 37.2; O2SAT 99
[2024-07-09] MEDS: Acetaminophen 325 MG TAB PO ×2 (00:51→08:18)
[2024-07-09] MEDS: Gabapentin 600 MG TAB PO (01:05)
[2024-07-09] MEDS: MORPHine 2 MG/ML SYR IVP ×2 (01:27→04:25)
--- NOTE | 2024-07-09 07:41 | NUR.NOTE ---
report received with Lou SCHMITZ, pt resting in bed, opened eyes to say hello but fell back asleep and denied needs, white board updated, pt introduced to staff, resting in bed comfortably with bed alarm on, call davison in reach, bed low/locked. Nursing Note:
[2024-07-09 07:42] VITALS: BP 157/96; PULSE 98; RESP 16; TEMP 36.2; O2SAT 97
[2024-07-09] MEDS: Gabapentin 100 MG CAP PO (08:18)
[2024-07-09] MEDS: Buprenorphine 2 MG SUBLINGUAL TABLET SL (08:18)
[2024-07-09] MEDS: levETIRAcetam 500 MG TAB 1000 MG PO ×2 (08:19→20:16)
[2024-07-09] MEDS: rOPINIRole 0.5 MG TAB PO ×3 (08:19→20:16)
[2024-07-09] MEDS: DULoxetine 30 MG CAP PO (08:19)
[2024-07-09] MEDS: Normal Saline Flush 10 ML SYR IVP ×2 (08:29→20:18)
--- NOTE | 2024-07-09 08:40 | NUR.NOTE ---
patient calm and cooperative this AM, AxOx4, reports 8/10 pain, did just give tylenol with gabapentin and subutex, will re-eval pain soon. Pt sitting up to eat, cleaned of incontinence of bowel/bladder (which is his baseline), patient feeding self, will wash up after breakfast, given gabapentin 100mg this AM prior to order discontinuing so discussed holding AM lyrica due to pt not taking both anymore per [facility]. Pending order clarification for dexmethylphenidate which pt reports taking but pharmacy says is d/c'd, pending update later this AM on status. l Nursing Note:
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
[2024-07-09 11:24] LABS: HCT 34.7 % (40.0-50.0); HGB 11.5 g/dL (13.5-17.5); MCH 30.3 pg (27.0-33.0); MCHC 33.1 % (32.0-36.0); MCV 91 fL (80-95); MPV 10.1 fL (8.0-11.0); Platelet Count 349 10^3/uL (130-400); RDW-SD 47.5 fL; WBC 8.72 10^3/uL (4.4-10.8)
[2024-07-09 11:28] LABS: Anion Gap 7.5 mmol/L (3-11); BUN 14 mg/dL (7-18); CO2 28.5 mmol/L (21.0-32.0); CREATININE 0.8 mg/dL (0.70-1.30); Calcium 9.7 mg/dL (8.5-10.1); Chloride 105 mmol/L (98-107); Estimated GFR 105.17 (mL/min/1.73m2); Glucose 128 mg/dL (74-106); Magnesium 1.8 mg/dL; Potassium 3.7 mmol/L (3.5-5.1); Sodium 141 mmol/L (136-145)
[2024-07-09 11:34] VITALS: BP 143/103; PULSE 97; RESP 16; TEMP 35.6; O2SAT 97
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
[2024-07-09 12:53] LABS: Hemoglobin A1C 6.1 % (<5.7)
[2024-07-09 13:35] LABS: Lab Add On Test DONE
[2024-07-09 13:46] LABS: C-Reactive Protein 4.17 mg/dL (<or=0.5)
[2024-07-09] MEDS: Pregabalin 100 MG CAP PO ×2 (15:22→20:16)
[2024-07-09 15:37] VITALS: BP 155/99; PULSE 95; RESP 16; TEMP 36.3; O2SAT 97
--- NOTE | 2024-07-09 16:01 | PT.INNT ---
PT Notes Visit Reasons: Generalized weakness Attempted several times today for a PT evaluation but patient first was with nursing staff for care and then needed to be assisted onto stretcher for MRI. Patient was also helped back from stretcher to bed upon return for MRI but was too sedated to participate in therapy. When PT came back for the last time, he was with VALERIE Garcia for palliative care consultation. VALERIE Perry recommended holding off on eval until after MRI result is back to check metastases of cancer to spine/brain.
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
--- NOTE | 2024-07-09 17:07 | CHAPLAIN ---
Rio was sitting up in bed with his dinner tray in front of him when I visited this evening. He was interested in eating his ice cream. He said he need to go to the bathroom, so I let his PELLETISING EXTRUDER OPERATOR, Bela, know. She has been working with him all day and was aware that he's been uncomfortable on and off today, but seems comfortable currently. Rio said he'd like to use the phone after he eats. He didn't bring a phone with him, but there is one in his room. I explained my role and offered support.
--- NOTE | 2024-07-09 17:54 | NUR.NOTE ---
patient completed MRI without contrast but couldn't tolerate staying in MRI machine for contrast portion, will need to continue at later time. Pending results. Patient resting in bed, contiues to have low/little PO intake, condom cath to suction for incontinence, Q2 turns and brief checks, sleeping comfortably at this time. Bed low/locked, call davison in reach, seizure pads on, bed alarm on. Nursing Note:
[2024-07-09] MEDS: Dexamethasone 10 MG/ML VIAL IVP (19:23)
[2024-07-09 19:29] VITALS: BP 139/89; PULSE 91; RESP 16; TEMP 36.9; O2SAT 96
[2024-07-09] MEDS: Atorvastatin 40 MG TAB 80 MG PO (20:16)
[2024-07-09] MEDS: LORazepam 0.5 MG TAB PO (20:16)
[2024-07-09] MEDS: Buprenorphine 2 MG SUBLINGUAL TABLET 4 MG SL (20:17)
--- NOTE | 2024-07-09 22:27 | WOUNDCONS ---
Date of service: 07/09/24 Time of Service: 22:27 Wound Initial Evaluation Narrative Narrative: Patient is a 53 year old male admitted 0n 4\3\25 for weakness and frequent falls. Patient has a PMH of lung cancer with brain mets, bladder cancer,C-T spine mets with resection and substance abuse. Patient has Stage IV and has been discussing goals of care with palliative. Patient is pleasant but fatigued and after giving consent for the wound consult he fell asleep. Photo consent was signed and this telegraphic typewriter operator chief reviewed the H&P, allergies and recent vital signs. Patient reports vaping daily. BMI is 21.9. Wound Right Medial Malleolus: Percent of Wound Bed Granulated/Red: 80 Percent of Wound Bed Slough/Yellow: 20 Wound Length: 3.5 cm Wound Width: 5.4 cm Wound Depth: 0.2 cm Wound Drainage Amount: Moderate Wound Drainage Odor: None/Absent Wound Drainage Description: Sanguineous Circulation, Sensation, Motion Peripheral Pulse Strength: Weak Capillary Refill: Less than 3 seconds Skin Temperature: Cool Skin Color: Pale Pain Additional Other Comments: Patient denies pain. Patient fell asleep when this telegraphic typewriter operator chief cleaned the feet and changed the dressing. Wound Summary Wound Summary: Photo is of right medial malleolus. Other abrasions on lower extremities are in various stages of healing. Photo Photo: Treatment/Dressing Change Topicals/Ointments: Other (Therahoney Gel) Cleanse With: Cleanser with Surfactant Dressing Types: Mepilex w/Border Dressing Comment: Kerlix, Mepilex and Xeroform dressing dated 07/09/24 removed. Slight maceration on wound edges prompted this telegraphic typewriter operator chief to apply Therahoney and an Optifoam Gentle Ex. Nutrition Education Reviewed Nutrition Education: Yes Note: The patient reports a decreased appetite. The patient acknowledged that increased protein is desirable for wound healing, but is not interested in eating at this time. Recomendation Recomendation:: Change dressing daily: Remove dressing spray with wound cleanser, let dwell for 2 minutes and pat dry Apply dab of Therahoney on wound bed and cover with a Optifoam Gentle Ex dressing (5x5 works well) Physcian/Nurse Practioner Notified: Yes
[2024-07-09 23:37] VITALS: BP 121/98; PULSE 100; RESP 16; TEMP 36.4; O2SAT 96
[2024-07-10] MEDS: Acetaminophen 325 MG TAB PO (04:35)
[2024-07-10] MEDS: oxyCODONE 5 MG TAB PO ×3 (05:13→20:01)
[2024-07-10 06:14] VITALS: BP 117/86; PULSE 87; RESP 16; TEMP 36.7; O2SAT 99
[2024-07-10] MEDS: DULoxetine 30 MG CAP PO (07:52)
[2024-07-10] MEDS: Buprenorphine 2 MG SUBLINGUAL TABLET 4 MG SL ×2 (07:52→20:02)
[2024-07-10] MEDS: Normal Saline Flush 10 ML SYR IVP ×3 (07:52→22:36)
[2024-07-10] MEDS: rOPINIRole 0.5 MG TAB PO (07:52)
[2024-07-10] MEDS: Dexamethasone 4 MG TAB 16 MG PO (10:07)
[2024-07-10] MEDS: Nicotine 14 MG/24 HR PATCH TD ×2 (10:12→22:06)
--- NOTE | 2024-07-10 10:41 | NUR.NOTE ---
Nursing Note: Patient refused to allow staff to bladder scan him per providers request. Provider Keon Lindsay INSULATOR TESTER notified.
--- NOTE | 2024-07-10 10:58 | NUR.NOTE ---
Nursing Note:Provider Vicky Lindsay requested RN to speak with patient regrding refusal of bladder scan tell him that if he retains bcz of his cancer in his spine he can go into shock which might cause him to code and maybe , please. He might change his mind, if he knows why? RN educated patient again regarding risks for refusing bladder scan, pt verbalized understanding and continued to refuse bladder scan. Provider notified. ZINA SCHMITZ
[2024-07-10 11:05] VITALS: BP 138/99; PULSE 88; RESP 16; TEMP 35.8; O2SAT 98
--- NOTE | 2024-07-10 11:23 | NUR.NOTE ---
Nursing Note: Embossing Press Operator went into patient room to assist patient with changing him as patient states i crapped myself, RN went in with APRON CLEANER to change him, patient stated yelling at RN about getting stronger pain medication and seeing the Doctor. RN told patient he had already recieved his oxycodone, patient became agressive throwing arms in the air, and around, stated to RN dont be sarcastic, get the fuck out, i will sit in my own shit, RN lowered bed, gave patient call bed, and notified provider.
--- NOTE | 2024-07-10 11:49 | IN_ITS ---
PT Notes Visit Reasons: Generalized weakness Inpatient Physical Therapy Evaluation Date: 07/10/24 Referring Doctor: Vicky Lindsay PT Orders: PT CONSULT: Fall Safety Assessment Patient Profile/Admitting Diagnosis: Generalized weakness secondary to metastatic cancer Social History/Home Situation: Lives alone but does not wish to talk much today Subjective: Pt currently being assisted by nursing with pericare. Pt is irritated and does not wish to discuss his home situation at this time. He may be transferred to [facility] as a mass was found on his spine following a recent MRI. Objective: General Observation: scabbing and bruising along bilateral LEs Mental Status: A+Ox3 Pain: Describes pain everywhere but does not go into details Vital Signs: monitored by nursing Strength: Right Upper Extremity: able to pull with his arms to assist with rolling Left Upper Extremity: able to pull with his arms to assist with rolling Right Lower Extremity: unable to perform any active motions when asked other than slightly moving his toes Left Lower Extremity: unable to perform any active motions when asked Sensation: minimal per pt Bed Mobility/Transfers: bilateral rolling w/max assist of 2, does assist with bilat UEs by pulling on bed rail Special Tests: Mobility Limitations Standardized Measure [facility] 6 clicks Basic Mobility Inpatient Short Form: Raw Score: 8 CMS Score: 86.62% Informed Consent/Education: Patient instructed in purpose of PT consult and plan of care. Assessment: Pt currently not willing to fully participate in the evaluation due to being irritated. He did demonstrate some rolling with max assist of 2. He does not seem to have any active motions in his bilat LEs other than being able to move his right toes. He is likely being transferred to [facility] soon for further evaluation and treatment. We will continue to attempt treatments with Rio in the future if kept in this hospital to progress with his functional mobility. Until then, it is recommended that transfers only happen via a Collin lift and he should not be left in the seated position without support. Patient is assessed as a [x] Moderate 68491 complexity based on the following: History: Moderate Examination: Moderate Presentation: Moderate Decision Making: Moderate Goals: Goals X1 week 1. Supine-Sit w/mod assist of 2 2. Sit-Supine w/mod assist of 2 3. Sit-Stand w/max assist 4. Stand-Sit w/max assist Plan of Care/Treatment Plan: 1-2x/day, 7 days/week x 1 week. Plan of care has been reviewed with the TECHNICAL ASSOCIATE providing the service under Physical Therapy direction. Initiate Physical Therapy intervention for strengthening, bed mobility, transfers, gait, stairs, balance training, use of assistive device. DISCHARGE RECOMMENDATIONS: Transfer to [facility] for further assessment and treatment. He cannot return home at his current level of function TREATMENT CODE/TIME: Moderate complexity evaluation x1 (15480)
--- NOTE | 2024-07-10 11:49 | NUR.NOTE ---
Nursing Note: pt refused clonadine. Provider at bedside and educated patient about medication. pt verbalized understanding and refused mediation
[2024-07-10] MEDS: Pregabalin 100 MG CAP PO ×2 (12:16→20:02)
[2024-07-10] MEDS: MORPHine 2 MG/ML SYR IVP (12:36)
[2024-07-10] MEDS: LORazepam 0.5 MG TAB PO (12:37)
[2024-07-10] MEDS: Pantoprazole 40 MG VIAL IVP (12:37)
--- NOTE | 2024-07-10 12:54 | DI.CT_ITS ---
Exam(s) CT ABDOMEN PELVIS WO EXAM: CT ABDOMEN PELVIS WO CLINICAL HISTORY: distention-tenderness. TECHNIQUE: Imaging Protocol: Axial computed tomography images with coronal and sagittal reformatted images were created and reviewed. CT CT CHEST/ABD/PEL W from 05/22/2023 FINDINGS: Lack of IV contrast does limit evaluation of the abdominal pelvic organs. ABDOMEN: Lung Bases: Coronary artery calcifications are present. There are mild emphysematous changes seen in the lung bases. There is a tiny right pleural effusion and subjacent atelectasis. Liver: Normal density. There is again seen an hypodense mass in the left lobe of the liver. This is unchanged. On the prior examination dated 2023, there is peripheral enhancement noted suggestive of a hepatic hemangioma. Further imaging with suggestive but not performed. Follow-up with a MRI of e liver using the hemangioma protocol should be considered for confirmation. Gallbladder and biliary tract: No evidence of cholelithiasis. Stable mild dilatation of the extrahep atic bile duct. Pancreas: Mild pancreatic calcification is seen. No definite pancreatic mass is seen on this noncont rast examination. Spleen: Normal. Kidneys: Normal size, contour and axis.Left nephrolithiasis. No obstructive uropathy. No masses see n. Adrenal glands: There is a stable left adrenal nodule likely reflecting an adenoma. The right adrena l gland is unremarkable. Lymph nodes: Within normal limits. Abdominal Aorta: Abdominal portion non-dilated. Atherosclerotic calcification is present. PELVIS: Bladder:The urinary bladder is markedly distended. Consider catheterization Bowel: The stomach is distended without evidence of obstruction. There is a moderate amount of stool seen throughout the colon. Moderately distended loops of colon are present. There is no bowel wall thickening or transition noted. Small bowel is within normal limits. The findings may represent an ileus. There is a normal appendix. There is no pneumatosis. Peritoneal cavity: No ascites, collection or mesenteric inflammatory response. No free air. Reproductive organs: Unremarkable as visualized. Bones: Within normal limits. There is L5 spondylolysis without evidence of spondylolisthesis. Soft Tissues: Within normal limits. IMPRESSION: 1. Dilated loops of large bowel and minimally dilated loops of small bowel without a transition point . This may represent ileus. 2. Moderate amount of retained stool in the colon. 3. Marked distension of the urinary bladder. Consider catheterization. 4. Stable hypodensity in the left lobe of the liver. Previously, this showed some peripheral enhance ment on the CT examination and likely reflects a hemangioma. Nonemergent MRI of the abdomen using e hemangioma protocol should be considered for confirmation. RADIATION DOSE DELIVERED: 470.02mGy.cm Total DLP DATA REPOSITORY: All CT scans at this facility are submitted to the National Radiology Data Registry (NRDR) Dose Index Registry (DIR) with the [employer] (ACR). RADIATION OPTIMIZATION: All CT scans at this facility use at least one of these dose optimization te chniques: automated exposure control; mA and/or kV adjustment per patient size (includes targeted exa ms where dose is matched to clinical indication); or iterative reconstruction.
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
[2024-07-10] MEDS: Lidocaine 2% Jelly 11 ML SYR UR (14:39)
[2024-07-10] MEDS: HYDROmorphone 2 MG/ML SYR IVP ×3 (14:39→22:35)
[2024-07-10] MEDS: Bisacodyl 10 MG SUPP PR (14:39)
--- NOTE | 2024-07-10 15:21 | NUR.NOTE ---
Nursing Note: RN spoke with pt regarding dexmethylphenidate, pt states it may be friday before someone is able to bring it in for him. Provider notified. ZINA SCHMITZ
[2024-07-10 15:43] VITALS: BP 126/91; PULSE 97; RESP 16; TEMP 35.8; O2SAT 98
[2024-07-10 19:36] VITALS: BP 133/84; PULSE 95; RESP 19; TEMP 36.1; O2SAT 95
[2024-07-11] MEDS: oxyCODONE 5 MG TAB PO ×2 (00:30→06:24)
[2024-07-11] MEDS: HYDROmorphone 2 MG/ML SYR IVP (02:53)
[2024-07-11] MEDS: Acetaminophen 325 MG TAB PO ×2 (02:55→11:48)
[2024-07-11] MEDS: LORazepam 0.5 MG TAB PO (03:55)
[2024-07-11 06:18] VITALS: BP 149/96; PULSE 90; RESP 19; TEMP 36; O2SAT 97
[2024-07-11] MEDS: Buprenorphine 2 MG SUBLINGUAL TABLET 4 MG SL (08:14)
[2024-07-11] MEDS: Normal Saline Flush 10 ML SYR IVP (08:15)
[2024-07-11] MEDS: Dexamethasone 4 MG TAB PO ×2 (08:15→11:46)
[2024-07-11] MEDS: Pregabalin 100 MG CAP PO (08:15)
[2024-07-11] MEDS: Pantoprazole 40 MG VIAL IVP (08:15)
--- NOTE | 2024-07-11 08:38 | NUR.NOTE ---
Nursing Note: RN went in to do AM med pass and assess patient. Patient visibly soiled and has bowel movement. PT refused to allow staff to change brief and clean patient up because he wanted to eat his breakfast. RN educated patient on risk of sitting on fecal matter as it can cause skin breakdown. pt verbalized understanding. PT assessed and given medications. pt refused Clonidine, Duloxetine, Lovenox, Keppra, Ropinirole, Continuous IVF (NS @75), Provider Finn Murillo MD notified. ZINA SCHMITZ
[2024-07-11] MEDS: HYDROmorphone 2 MG/ML SYR 3 MG IVP ×2 (09:54→14:59)
--- NOTE | 2024-07-11 11:10 | PDOC.CMDIS ---
Date of service: 07/11/24 Time of Service: 11:10 LACE Index Scoring Tool Questions: Length of Stay (in days): 3 Was the patient admitted via the E.D.?: Yes Comorbidities: Metastatic Solid Tumor (Lung Cancer) E.D. Visits: 2 Answers: Total Score: 13 Risk of Readmission: High Risk Care Management Discharge Plan Reason for Hospitalization: Spinal Cord Lesion, frequent falls Discharge Plan: Requires tertiary care and is accepted in transfer to [facility] in [facility]. Will transport via EMS, which will be coordinated by nursing. Patient/Family Education Needs: Review transfer instructions. Discuss ask me three. Services Needed at Discharge: Transportation (EMS) SDOH Health Related Social Needs: Health related social needs food insecurity (Z59.41), transportation insecurity (Z59.82), problems related to housing/economic circumstances (Z59.89), problems with daily activities (Z73.9) Care Management Referrals: [facility]
[2024-07-11 11:27] VITALS: BP 141/88; PULSE 80; RESP 20; TEMP 36.4; O2SAT 97
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
--- NOTE | 2024-07-11 14:45 | NUR.NOTE ---
Nursing Note: RN spoke with Jeni SCHMITZ Nursing superior and Transfer nurse who confirmed bed placement for patient on [address] [facility], 8th floor, room 832, bed 2, Nurse to nurse report to be called into [phone]. ZINA SCHMITZ
--- NOTE | 2024-07-11 15:18 | W.PC.ACHO ---
Registration Status: Primary Language: Preferred Language: ED Information & Data Chief Complaint GenMedical 07/08/24 17:10 Chief Complaint GenMedical 07/08/24 16:46 Triage Note Patient here with lung ca 07/08/24 16:22 and mets to the brain, spinal cord, spider bite on R medial ankle that he ripped scabbed off accidentally as he was on the floor lying on cushions for two days. Is able to move somewhat, unable to stand. Medical / Surgical History (Last Reviewed 07/09/24 @ 16:32 by Ledy Garcia NP) PTSD (post-traumatic stress disorder) (Last Reviewed 07/09/24 @ 16:32 by Ledy Garcia NP) H/O craniotomy Most Recent Vital Signs Temperature 36.4 C L 07/11/24 11:27 Temperature Source Temporal Artery Scan 07/11/24 11:27 Pulse 80 07/11/24 11:27 Pulse Rhythm Regular 07/08/24 20:59 Pulse 77 07/08/24 17:16 Respiratory Rate 20 07/11/24 11:27 Respiratory Effort Normal, Non-Labored 07/08/24 20:59 Respiratory Depth Normal 07/08/24 20:59 Respiratory Pattern Normal 07/08/24 20:59 Blood Pressure 141/88 H 07/11/24 11:27 Blood Pressure Mean 90 07/08/24 17:16 Blood Pressure Position Supine 07/08/24 16:22 Pulse Oximetry 97 07/11/24 11:27 Oxygen Delivery Method Room Air 07/11/24 11:27 Oxygen Flow Rate 0 07/11/24 11:27 Pain Level 7 07/11/24 06:24 Comment Pt refused vitals and being changed, (cleaned up from incontinence) twice since 07:15. 07/11/24 07:52 Allergies pregabalin (From Lyrica) Adverse Reaction (Verified 07/08/24 16:26) changes in mentation when combined with seroquel tramadol Adverse Reaction (Unverified 07/08/24 16:26) Nausea Precautions Isolation Standard precaution 07/08/24 17:10 Active Medications Generic Name Dose Route Start Last Admin Trade Name Freq PRN Reason Stop Dose Admin Acetaminophen 0 mg 07/08/24 20:39 07/11/24 11:48 Acetaminophen 325 Mg Tab PO 650 mg Q4H PRN PRN Administration Atorvastatin Calcium 80 mg 07/08/24 20:50 07/10/24 20:04 Atorvastatin 40 Mg Tab PO Not Given HS STUART Buprenorphine HCl 4 mg 07/09/24 20:00 07/11/24 08:14 Buprenorphine 2 Mg Sublingual Tablet SL 4 mg BID STUART Administration Dexamethasone 4 mg 07/11/24 08:30 07/11/24 11:46 Dexamethasone 4 Mg Tab PO 4 mg QID STUART Administration Hydromorphone HCl 3 mg 07/11/24 08:12 07/11/24 14:59 Hydromorphone 2 Mg/Ml Syr IVP 3 mg Q4H PRN PRN Administration Sodium Chloride 1,000 mls @ 75 mls/hr 07/08/24 22:15 07/10/24 07:01 Saline 1000ml Bag IV Infused INFUSION STUART Infusion Levetiracetam 1,000 mg 07/09/24 08:30 07/11/24 08:15 Levetiracetam 500 Mg Tab PO Not Given BID STUART Lorazepam 0.5 mg 07/08/24 23:00 07/10/24 20:04 Lorazepam 0.5 Mg Tab PO Not Given HS STUART Lorazepam 0.5 mg 07/10/24 12:09 07/11/24 03:55 Lorazepam 0.5 Mg Tab PO 0.5 mg QID PRN PRN Administration Methocarbamol 500 mg 07/08/24 21:28 07/08/24 22:22 Methocarbamol 500 Mg Tab PO 500 mg Q4H PRN PRN Administration Nicotine 14 mg 07/08/24 20:39 07/10/24 22:06 Nicotine 14 Mg/24 Hr Patch TD 14 mg DAILY PRN PRN Administration Pantoprazole Sodium 40 mg 07/10/24 12:25 07/11/24 08:15 Pantoprazole 40 Mg Vial IVP 40 mg DAILY STUART Administration Pregabalin 100 mg 07/10/24 12:00 07/11/24 13:54 Pregabalin 100 Mg Cap PO Not Given TID STUART Sodium Chloride 0 ml 07/08/24 20:39 07/10/24 22:36 Normal Saline Flush 10 Ml Syr IVP 10 ml PRN PRN Administration Sodium Chloride 0 ml 07/08/24 20:39 07/11/24 08:15 Normal Saline Flush 10 Ml Syr IVP 10 ml BID STUART Administration IV IV Catheter Type [Right Saline Lock Antecubital] IV Catheter Gauge [Right 20 Antecubital] 07/08/24 11:00 Blood Culture - Preliminary Blood NO GROWTH 48 HOURS 07/08/24 16:54 Blood Culture - Preliminary Blood NO GROWTH 48 HOURS [id number] Documentation Fingerstick Glucose Start: 07/08/24 22:14 Freq: .Q6H Status: Complete Protocol: Activity Type Activity Date Activity User E-sign Co-sign Detail Recorded Client Recorded Date Recorded By Document 07/09/24 06:29 BKG DAEMON(3) [id number] 07/09/24 06:29 BKG DAEMON(4) Intake and Output - 24 Hour Total 07/08/24 16:10 thru 07/11/24 11:44 Intake Total 5711.25 Output Total 5100 Balance 611.25 Weight 73.3 kg Intake: IV 3371.25 Oral 2340 Output: Urine 5100 Other: Urine Color Yellow Urine Appearance Clear Urine Odor Normal Comment patricia inserted and 1800 urine drained. Stool Size Small Stool Characteristics Liquid Urinary Catheter Urinary Catheter Date of 07/10/24 Insertion [Urethral (Patricia)] Time of insertion [Urethral ( 15:10 Patricia)] Falls Risk Assessment History of Falls Previous History 07/08/24 20:43 Contributing Factors Impairments 07/08/24 20:43 Ambulatory Aids Uses ambulatory device + 07/08/24 20:43 Tubes/Lines With any additional score 07/08/24 20:43 Gait Evaluation W/any additional score 07/08/24 20:43 Cognition No cognitive impairment 07/08/24 20:43 Fall Total Score 88 07/08/24 20:43 Level of Risk Maximum Risk 07/08/24 20:43 Problems (Last Reviewed 07/09/24 @ 16:32 by Ledy Garcia NP) Discharge planning issues (Acute) Urinary retention (Acute) Spinal cord lesion (Acute) Palliative care patient (Acute) Wound of right ankle (Acute) Seizure disorder (Chronic) Frequent falls (Acute) Weakness (Acute) Non-small cell lung cancer (Acute) Bipolar 1 disorder (Acute) Substance abuse (Acute) Personal history of nicotine dependence (Acute) Notes 07/11/24 14:45 Nursing Notes by Haroon Rod Nursing Note: RN spoke with Jeni SCHMITZ Nursing superior and Transfer nurse who confirmed bed placement for patient on [facility], 8th floor, room 832, bed 2, Nurse to nurse report to be called into [phone]. ZINA RN Initialized on 07/11/24 14:45 - END OF NOTE 07/11/24 08:38 Nursing Notes by Haroon Rod Nursing Note: RN went in to do AM med pass and assess patient. Patient visibly soiled and has bowel movement. PT refused to allow staff to change brief and clean patient up because he wanted to eat his breakfast. RN educated patient on risk of sitting on fecal matter as it can cause skin breakdown. pt verbalized understanding. PT assessed and given medications. pt refused Clonidine, Duloxetine, Lovenox, Keppra, Ropinirole, Continuous IVF (NS @75), Provider Finn Murillo MD notified. ZINA RN Initialized on 07/11/24 08:38 - END OF NOTE 07/10/24 15:21 Nursing Notes by Haroon Rod Nursing Note: RN spoke with pt regarding dexmethylphenidate, pt states it may be friday before someone is able to bring it in for him. Provider notified. ZINA RN Initialized on 07/10/24 15:21 - END OF NOTE 07/10/24 11:49 Nursing Notes by Haroon Rod Nursing Note: pt refused clonadine. Provider at bedside and educated patient about medication. pt verbalized understanding and refused mediation Initialized on 07/10/24 11:49 - END OF NOTE 07/10/24 11:23 Nursing Notes by Haroon Rod Nursing Note: Guest Specialist went into patient room to assist patient with changing him as patient states i crapped myself, RN went in with BAG PRESS OPERATOR to change him, patient stated yelling at RN about getting stronger pain medication and seeing the Doctor. RN told patient he had already recieved his oxycodone, patient became agressive throwing arms in the air, and around, stated to RN dont be sarcastic, get the fuck out, i will sit in my own shit, RN lowered bed, gave patient call bed, and notified provider. Initialized on 07/10/24 11:23 - END OF NOTE 07/10/24 10:58 Nursing Notes by Haroon Rod Nursing Note:Provider Vicky Lindsay requested RN to speak with patient regrding refusal of bladder scan tell him that if he retains bcz of his cancer in his spine he can go into shock which might cause him to code and maybe , please. He might change his mind, if he knows why? RN educated patient again regarding risks for refusing bladder scan, pt verbalized understanding and continued to refuse bladder scan. Provider notified. ZINA RN Initialized on 07/10/24 10:58 - END OF NOTE 07/10/24 10:41 Nursing Notes by Haroon Rod Nursing Note: Patient refused to allow staff to bladder scan him per providers request. Provider Keon Lindsay NUCLEAR SCIENTIST notified. Initialized on 07/10/24 10:41 - END OF NOTE 07/09/24 17:54 Nursing Notes by Lubna Lara patient completed MRI without contrast but couldn't tolerate staying in MRI machine for contrast portion, will need to continue at later time. Pending results. Patient resting in bed, contiues to have low/little PO intake, condom cath to suction for incontinence, Q2 turns and brief checks, sleeping comfortably at this time. Bed low/locked, call davison in reach, seizure pads on, bed alarm on. Nursing Note: Initialized on 07/09/24 17:54 - END OF NOTE 07/09/24 08:40 Nursing Notes by Lubna Lara patient calm and cooperative this AM, AxOx4, reports 8/10 pain, did just give tylenol with gabapentin and subutex, will re-eval pain soon. Pt sitting up to eat, cleaned of incontinence of bowel/bladder (which is his baseline), patient feeding self, will wash up after breakfast, given gabapentin 100mg this AM prior to order discontinuing so discussed holding AM lyrica due to pt not taking both anymore per [facility]. Pending order clarification for dexmethylphenidate which pt reports taking but pharmacy says is d/c'd, pending update later this AM on status. l Nursing Note: Initialized on 07/09/24 08:40 - END OF NOTE 07/09/24 07:41 Nursing Notes by Lubna Lara report received with Lou SCHMITZ, pt resting in bed, opened eyes to say hello but fell back asleep and denied needs, white board updated, pt introduced to staff, resting in bed comfortably with bed alarm on, call davison in reach, bed low/locked. Nursing Note: Initialized on 07/09/24 07:41 - END OF NOTE v v v v v v v v v Sending and/or Receiving Nurses: Please use comment section below to note any information pertinent to the patient hand-off not included above. Information / Comments: Report received from: Report given to Liu SCHMITZ at [facility] at 1515. ZINA SCHMITZ
== END 2024-07-11 15:31 | disposition short-term general hospital (02) ==
LOC: ER 19:52 → MS 20:47
PROVIDERS: Nurse Practitioner Acute Care; Admitting Provider Family Medicine; Emergency Provider Registered Nurse Emergency; PCP Nurse Practitioner Family; Responsible Provider Family Medicine; Visit Provider Family Medicine
DX: G95.29 Other cord compression (principal); R53.1 Weakness; R29.6 Repeated falls; F14.23 Cocaine dependence with withdrawal; G40.909 Epilepsy, unspecified, not intractable, without status epilepticus; C67.9 Malignant neoplasm of bladder, unspecified; C34.12 Malignant neoplasm of upper lobe, left bronchus or lung; C79.31 Secondary malignant neoplasm of brain; F31.9 Bipolar disorder, unspecified; R33.9 Retention of urine, unspecified; K59.00 Constipation, unspecified; Z90.2 Acquired absence of lung [part of]; L97.318 Non-pressure chronic ulcer of right ankle with other specified severity; L03.115 Cellulitis of right lower limb; Z79.899 Other long term (current) drug therapy; F17.210 Nicotine dependence, cigarettes, uncomplicated; F10.20 Alcohol dependence, uncomplicated; F12.90 Cannabis use, unspecified, uncomplicated; F15.90 Other stimulant use, unspecified, uncomplicated; Z66 Do not resuscitate; F11.10 Opioid abuse, uncomplicated
CPT/HCPCS: 00123; 36415; 80048; 80053; 80307; 85027; 85652; 87040; 93005; 96365; 96366; 96375; 96376; 97162; 99285; 70450; 70551; 72125; 72128; 72131; 72141; 73700; 74176; 80320; 81003; 83036; 83605; 83735; 84484; 85025; 86140; 93010; 99223; 99233; 99239; G0378; J0696; J1100; J1171; J1885; J2270; J2470; J3490; J8540

== ENCOUNTER 2024-09-09 12:44 | Inpatient (IN) | payer MEDICARE, MEDICAID, SELFPAY ==
[2024-09-09 12:50] VITALS: BP 75/24; PULSE 96; RESP 10; TEMP 37; O2SAT 97
[2024-09-09 13:15] VITALS: BP 75/24; PULSE 96; RESP 10; TEMP 37; O2SAT 98
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
[2024-09-09 13:55] VITALS: BP 120/47; PULSE 67; O2SAT 96
--- NOTE | 2024-09-09 15:15 | W.PC.ACHO ---
Registration Status: Primary Language: Preferred Language: ED Information & Data Chief Complaint AMS/LOC 09/09/24 13:32 Triage Note pt brought in for direct 09/09/24 12:50 admit but came to ED, cold and min responsive, BP 75/24 , here for hospice, all meds biut pain meds d/c. Medical / Surgical History (Last Reviewed 07/09/24 @ 16:32 by Ledy Garcia NP) Frequent falls PTSD (post-traumatic stress disorder) (Last Reviewed 07/09/24 @ 16:32 by Ledy Garcia NP) H/O craniotomy Most Recent Vital Signs Temperature 37.0 C 09/09/24 13:15 Temperature Source Axillary 09/09/24 13:15 Pulse 67 09/09/24 13:55 Respiratory Rate 10 L 09/09/24 13:15 Respiratory Depth Shallow 09/09/24 13:15 Blood Pressure 120/47 L 09/09/24 13:55 Blood Pressure Mean 71 09/09/24 13:55 Blood Pressure Position Sitting 09/09/24 13:15 Pulse Oximetry 96 09/09/24 13:55 Oxygen Delivery Method Room Air 09/09/24 13:55 Oxygen Flow Rate 0 09/09/24 13:55 Pain Level 10 09/09/24 13:55 Comment BP after cleaning of pt, mult deep tissue injuries and pressure wounds, ROCK lower ext with blackened/cold toes, swollen/edema/weeping sores, edema to upper thighs, cleaned, positioned with pillows under bony prominences and warm towels around lower legs, warm blankets placed over pt. 09/09/24 13:55 Allergies pregabalin (From Lyrica) Adverse Reaction (Verified 09/09/24 12:49) changes in mentation when combined with seroquel tramadol Adverse Reaction (Unverified 09/09/24 12:49) Nausea Precautions Isolation Standard precaution 09/09/24 13:15 Intake and Output - 24 Hour Total 09/09/24 12:38 thru 09/09/24 12:50 Weight 77.111 kg Falls Risk Assessment History of Falls Previous History 09/09/24 13:15 Contributing Factors Confusion,Unstable, 09/09/24 13:15 Impairments Ambulatory Aids Uses ambulatory device + 09/09/24 13:15 Tubes/Lines None 09/09/24 13:15 Gait Evaluation W/any additional score 09/09/24 13:15 Cognition Cognitive impairment 09/09/24 13:15 Fall Total Score 89 09/09/24 13:15 Level of Risk Maximum Risk 09/09/24 13:15 v v v v v v v v v Sending and/or Receiving Nurses: Please use comment section below to note any information pertinent to the patient hand-off not included above. Information / Comments: Patient may need IV access for pain management. Pt is poorly responsive. Shireen reports she will place an IV before bringing patient up to med/surg. Report received from: Shireen HUYNH/AINSLEY
[2024-09-09 15:36] VITALS: BP 100/78; PULSE 103; RESP 16; TEMP 35.8; O2SAT 93
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
[2024-09-10] MEDS: Normal Saline Flush 10 ML SYR IVP ×3 (03:36→22:54)
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
--- NOTE | 2024-09-10 15:19 | CHAPLAIN ---
Rio was admitted yesterday for comfort care/end of life care. Daniela is listed as his significant other. I haven't met Daniela. Rio's brother, Antwon, from [place] has been there today. He said they don't have any other relatives except a couple of uncles that they are not in touch with. Rio and Antwon grew up in the [facility], moving around some, we were kind of nomadic, Antwon said. They both moved to other parts [place] and then returned to [place]. Rio appears to be comfortable, and staff is checking in on Antwon frequently. Ledy Garcia NP, from Palliative Care saw Rio today. Rio previously indicated that he wants to be cremated but has not given other instructions.
--- NOTE | 2024-09-10 18:47 | W.PM.PROGNOT ---
Date of Service Date of service: 09/10/24 Time of Service: 18:47 Assessment and Plan Assessment and plan (1) Comfort measures only status: Status: Acute Assessment and plan: Patient was not alert enough to converse when admitted, but clearly communicated his wishes for comfort-focused care with his partner present to his PCP. 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 Color has actually imrpoved, no longer looks in shock, so prognosis more like days as he isn't eating/drinking. (2) Non-small cell lung cancer: Status: Acute Assessment and plan: Progressive with spinal metastases, no longer pursuing curative therapy. symptom management as above. (3) Pressure sore on buttocks, right, unstageable: Status: Acute Assessment and plan: Multiple. These will not heal. Try to keep dry (he is incontinent) and focus on comfort without pushing aggressive wound care that may be painful. Subjective Subjective Patient reports: denies diarrhea, vomiting or fever Interval history since last seen: events: Seen by palliative Brother from [place] here today. Feels like his brother is comfortable. No new concerns per nursing Exam Narrative Exam Narrative: GENERAL APPEARANCE: Thin, no longer flushed, somnolent, eyes closed during exam. No acute distress LUNGS/CHEST: Lungs clear anteriorly non-labored and shallow respirations HEART (CV/PV): Regular rate and rhythm without murmur. EXT: 1+ peripheral edema in ankles. cyanosis in toes but color in hand now pale, not purple ABDOMEN: Soft, non-distended, no guarding Objective Last Vital Signs Temp 35.8 C L 09/09/24 15:36 Pulse 103 H 09/09/24 15:36 Resp 16 09/09/24 15:36 BP 100/78 09/09/24 15:36 Pulse Ox 93 09/09/24 15:36 Time Spent with Patient Time Spent with Patient: 25-34 minutes Time was spent: preparing to see the patient(eg.review tests), obtaining and/or reviewing separately otained hiistory, referring, communicating with other health health care law specialist and care coordination
--- NOTE | 2024-09-11 12:38 | W.PM.PROGNOT ---
Date of Service Date of service: 09/11/24 Time of Service: 12:38 Assessment and Plan Assessment and plan (1) Comfort measures only status: Status: Acute Assessment and plan: Patient was not alert enough to converse when admitted, but clearly communicated his wishes for comfort-focused care with his partner present to his PCP. 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 Color has actually imrpoved, no longer looks in shock, so prognosis more like days as he isn't eating/drinking. He does have intermittent partial lucidity I don't think we need to place the IV again, continue subcut pump. (2) Non-small cell lung cancer: Status: Acute Assessment and plan: Progressive with spinal metastases, no longer pursuing curative therapy. symptom management as above. (3) Pressure sore on buttocks, right, unstageable: Status: Acute Assessment and plan: Multiple. These will not heal. Also blisters on feet. Try to keep dry (he is incontinent) and focus on comfort without pushing aggressive wound care that may be painful. No change today Subjective Subjective Patient reports: denies diarrhea, vomiting or fever Interval history since last seen: 24 Hr: lost IV access, but on SC pump for morphine No new concerns from nursing. Not eating or drinking. Has appeared comfortable. He opens eyes to voice and does say no when asked if he was in pain with abdominal palpation. Exam Narrative Exam Narrative: GENERAL APPEARANCE: Thin, somnolent, eyes closed but opens briefly to voice, makes eye contact. No acute distress LUNGS/CHEST: Lungs clear anteriorly non-labored and shallow respirations HEART (CV/PV): Regular rate and rhythm without murmur. EXT: 1+ peripheral edema in ankles. cyanosis in toes but color in hands now pale, not purple ABDOMEN: Soft, non-distended, not tender, no guarding Objective Last Vital Signs Temp 35.8 C L 09/09/24 15:36 Pulse 103 H 09/09/24 15:36 Resp 16 09/09/24 15:36 BP 100/78 09/09/24 15:36 Pulse Ox 93 09/09/24 15:36 Time Spent with Patient Time Spent with Patient: <25 minutes Time was spent: preparing to see the patient(eg.review tests), obtaining and/or reviewing separately otained hiistory, referring, communicating with other health day care director and care coordination
--- NOTE | 2024-09-11 13:21 | PHACLINREV_ITS ---
Pharmacy Admission Review Admission Clinical Review Admission Pharmacy Review: Pressure sore on buttocks, right, unstageable (Acute) Comfort measures only status (Acute) Palliative care patient (Acute) Non-small cell lung cancer (Acute) pregabalin (From Lyrica) Adverse Reaction (Verified 09/09/24 12:49) changes in mentation when combined with seroquel tramadol Adverse Reaction (Unverified 09/09/24 12:49) Nausea Resuscitation Status DNR/DNI Height 6 ft Weight 75.931 kg Pharmacy Admission Review Renal Dosing Medications needing adjustments: Reviewed (CrCl 113.37 ml/min) Anticoagulation DVT Prophylaxis: 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
--- NOTE | 2024-09-11 20:12 | NUR.NOTE ---
Nursing Note: left message for Jerrod returning his call with update and to call if he had any questions
--- NOTE | 2024-09-12 14:45 | W.PM.PROGNOT ---
Date of Service Date of service: 09/12/24 Time of Service: 14:45 Assessment and Plan Assessment and plan (1) Comfort measures only status: Status: Acute Assessment and plan: Patient was not alert enough to converse when admitted, but clearly communicated his wishes for comfort-focused care with his partner present to his PCP. 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 Color actually imrpoved after admission, no longer looks in shock, but multiple necrotic wounds and not taking oral fluids. Prognosis more like days He has had intermittent partial lucidity, though not today. Continue comfort care, subcut pump. (2) Non-small cell lung cancer: Status: Acute Assessment and plan: Progressive with spinal metastases, no longer pursuing curative therapy. symptom management as above. (3) Pressure sore on buttocks, right, unstageable: Status: Acute Assessment and plan: Multiple. These will not heal. Also blisters on feet. Try to keep dry (he is incontinent and some stool) and focus on comfort without pushing aggressive wound care that may be painful. No change today Subjective Subjective Patient reports: no new complaints; denies vomiting or fever Interval history since last seen: events: No events Large mucousy BM per nursing. Patient remains comfortable appearing per staff. Exam Narrative Exam Narrative: GENERAL APPEARANCE: Thin, somnolent, eyes closed but opens briefly to voice, not making eye contact today. No acute distress LUNGS/CHEST: Lungs clear anteriorly non-labored and shallow respirations HEART (CV/PV): Regular but tachy without murmur. EXT: 1+ peripheral edema in ankles. cyanosis in toes with necrotic areas but color in hands now pale, not purple ABDOMEN: Soft, non-distended, no guarding Objective Last Vital Signs Temp 35.8 C L 09/09/24 15:36 Pulse 103 H 09/09/24 15:36 Resp 16 09/09/24 15:36 BP 100/78 09/09/24 15:36 Pulse Ox 93 09/09/24 15:36 Time Spent with Patient Time Spent with Patient: 25-34 minutes Time was spent: preparing to see the patient(eg.review tests), obtaining and/or reviewing separately otained hiistory, ordering medications,tests, procedures, referring, communicating with other health resident care assistant, indepentently interpreting results, counseling the patient and care coordination
[2024-09-12 20:20] VITALS: RESP 20
[2024-09-13 01:42] VITALS: RESP 12
[2024-09-13 04:05] VITALS: RESP 10
[2024-09-13 06:22] VITALS: RESP 10
[2024-09-13 07:25] VITALS: RESP 10
[2024-09-13] MEDS: Scopolamine 1 MG/3 DAYS PATCH TD (11:31)
--- NOTE | 2024-09-13 13:20 | CMPROGNOTE_ITS ---
Date of service: 09/13/24 Time of Service: 13:21 Care Management Progress Note Progress Note Text Progress Note Text: Rio was lying in bed, when CM arrived. He appeared comfortable, and had no visitors in the room at this time. Rio did not appear to be responsive to voice at this time. He is receiving pain medications and will likely remain at [facility] through end of life care. CM will continue to follow. Discharge Plan: Anticipate Rio will remain at [facility] through end of life care. CM provided family with final arrangement resources, as requested. CM will continue to follow and update the plan as needed. Social Determinants of Health Screening Will the Patient Participate in the Screening?: Unable to obtain
--- NOTE | 2024-09-13 15:30 | W.PM.PROGNOT ---
Date of Service Date of service: 09/13/24 Time of Service: 15:31 Assessment and Plan Assessment and plan (1) Comfort measures only status: Status: Acute Assessment and plan: Patient was not alert enough to converse when admitted, but clearly communicated his wishes for comfort-focused care with his partner present to his PCP. 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 Color actually imrpoved after admission, no longer looks in shock, but multiple necrotic wounds and not taking oral fluids. Prognosis days He has had intermittent partial lucidity, though not since 09/11. Continue comfort care, subcut pump. Discussed titration with pharmacist. (2) Non-small cell lung cancer: Status: Acute Assessment and plan: Progressive with spinal metastases, no longer pursuing curative therapy. symptom management as above. (3) Pressure sore on buttocks, right, unstageable: Status: Acute Assessment and plan: Multiple. These will not heal. Also blisters on feet. Try to keep dry (he is incontinent and some stool) and focus on comfort without pushing aggressive wound care that may be painful. They look clean currently. Subjective Subjective Patient reports: denies diarrhea, vomiting or fever Interval history since last seen: Events: none Not responsive today. No new concerns per nursing Exam Narrative Exam Narrative: GENERAL APPEARANCE: Thin, somnolent, not opening eyes to voice or command today. No acute distress LUNGS/CHEST: Lungs clear anteriorly non-labored and shallow rhythmic respirations HEART (CV/PV): Regular but tachy without murmur. EXT: 1+ peripheral edema in ankles. cyanosis in toes with necrotic areas but color in hands now pale, not purple ABDOMEN: Soft, non-distended, no guarding Objective Last Vital Signs Temp 35.8 C L 09/09/24 15:36 Pulse 103 H 09/09/24 15:36 Resp 10 L 09/13/24 07:25 BP 100/78 09/09/24 15:36 Pulse Ox 93 09/09/24 15:36 Time Spent with Patient Time Spent with Patient: <25 minutes Time was spent: preparing to see the patient(eg.review tests), obtaining and/or reviewing separately otained hiistory, referring, communicating with other health critical care educator and care coordination
[2024-09-13 15:55] VITALS: RESP 7
[2024-09-14] MEDS: MORPHine 1,000 MG in CADD PUMP CASSETTE 1 EACH, Normal Saline 80 ML 0.8 MG SC_INF (03:08)
--- NOTE | 2024-09-14 08:40 | PDOC.CMPRO ---
Date of service: 09/14/24 Time of Service: 08:40 Care Management Progress Note Progress Note Text Progress Note Text: Ankur peacefully this morning, at 0825. His partner was notified, and Antwon is being contacted by RN regarding final arrangements. Social Determinants of Health Screening Will the Patient Participate in the Screening?: Unable to obtain
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
== END 2024-09-14 10:00 | disposition expired | DRG 947 ==
LOC: ER 13:40 → MS 15:16
PROVIDERS: Admitting Provider Family Medicine; Emergency Provider Physician Assistant; PCP Nurse Practitioner Family; Responsible Provider Family Medicine; Visit Provider Family Medicine
DX: G89.3 Neoplasm related pain (acute) (chronic) (principal); L89.314 Pressure ulcer of right buttock, stage 4; C79.31 Secondary malignant neoplasm of brain; C79.51 Secondary malignant neoplasm of bone; F11.20 Opioid dependence, uncomplicated; Z51.5 Encounter for palliative care; G40.909 Epilepsy, unspecified, not intractable, without status epilepticus; G54.0 Brachial plexus disorders; Z90.2 Acquired absence of lung [part of]; D64.9 Anemia, unspecified; F31.9 Bipolar disorder, unspecified; R53.1 Weakness; F41.8 Other specified anxiety disorders; F43.10 Post-traumatic stress disorder, unspecified; F17.210 Nicotine dependence, cigarettes, uncomplicated; Z85.118 Personal history of other malignant neoplasm of bronchus and lung
CPT/HCPCS: 00123; 99285; 99222; 99231; 99232; J2270